=== PATIENT | male | born 1955 | race American Indian/Alaskan Native ===

== ENCOUNTER 2017-10-02 18:23 | Inpatient (IN) | payer MEDICAID ==
--- NOTE | 2017-10-02 19:38 | C.PDOC ---
History Of Present Illness 62 year old male is brought to the ED by his family for evaluation of B/L eye purulent discharge. Patient states he has been having B/L purulent ocular discharge for approximately a week. Patient states he has not been eating or drinking much during this time. Patient denies fever, chills, nausea, vomit, visual changes, headache, dizziness. Time Seen by Provider: 10/02/17 19:08 Chief Complaint (Nursing): Eye Problem History Per: Patient, Family History/Exam Limitations: no limitations Onset/Duration Of Symptoms: Days Current Symptoms Are (Timing): Still Present Injury To Eye?: No Severity: Moderate Pain Scale Rating Of: 4 Quality: "Pain" Wears Contact Lens?: No Associated Symptoms: Discharge From Eye Recent travel outside of the [place]: No Additional History Per: Patient, Family Past Medical History Reviewed: Historical Data, Nursing Documentation, Vital Signs Vital Signs: Last Vital Signs Temp 97.8 F 10/02/17 18:29 Pulse 116 H 10/02/17 18:29 Resp 20 10/02/17 18:29 BP 121/65 10/02/17 18:29 Pulse Ox 100 10/02/17 20:08 - Medical History PMH: No Chronic Diseases Surgical History: No Surg Hx Family History: States: Unknown Family Hx - Social History Hx Tobacco Use: No Hx Alcohol Use: Yes Hx Substance Use: No - Immunization History Hx Influenza Vaccination: No Review Of Systems Constitutional: Negative for: Fever, Chills Eyes: Positive for: Conjunctivae Inflammation, Redness, Other (Eye discharge ) Cardiovascular: Negative for: Chest Pain, Palpitations Respiratory: Negative for: Cough, Shortness of Breath Gastrointestinal: Negative for: Nausea, Vomiting, Abdominal Pain Genitourinary: Negative for: Dysuria Musculoskeletal: Negative for: Back Pain Skin: Negative for: Rash Neurological: Negative for: Weakness, Numbness Psych: Negative for: Anxiety Physical Exam - Physical Exam Appears: Non-toxic, No Acute Distress Skin: Warm, Dry, Other (psoriatic skin lesions B/L on hands and knees) Head: Normacephalic Eye(s): bilateral: Other (erythematous conjuctiva, purulent ocular discharge, arcus senilis) Ear(s): Bilateral: Normal Oral Mucosa: Moist Neck: Trachea Midline, Supple Chest: Symmetrical Cardiovascular: Rhythm Regular, No Murmur Respiratory: No Decreased Breath Sounds, No Rales, No Rhonchi, No Wheezing Gastrointestinal/Abdominal: Soft, No Tenderness, No Guarding, No Rebound Back: No CVA Tenderness Extremity: No Tenderness, No Pedal Edema, No Swelling Extremity: Bilateral: Atraumatic Pulses: Left Dorsalis Pedis: Normal, Right Dorsalis Pedis: Normal Neurological/Psych: Oriented x3 Gait: Steady ED Course And Treatment - Laboratory Results Result Diagrams: 10/02/17 20:24 10/02/17 20:24 O2 Sat by Pulse Oximetry: 100 (On RA) Pulse Ox Interpretation: Normal Progress Note: Plan: -VBG. -Labs. -CXR. -IV fluids. -UA Disposition Discussed With Dr.: Shreyas Acosta Comment[facility] took [facility] care at 10:49PM Doctor Will See Patient In The: ED Counseled Patient/Family Regarding: Studies Performed, Diagnosis - Disposition Disposition: HOSPITALIZED Disposition Time: 19:37 Condition: FAIR Forms: [employer] (Mauritanian) - POA Present On Arrival: None - Clinical Impression Clinical Impression: Conjunctivitis, Severe anemia, Skin disease, fungal, Alcohol abuse - Scribe Statement The provider has reviewed the documentation as recorded by the Scribe Bishop Salinas All medical record entries made by the Scribe were at my direction and personally dictated by me. I have reviewed the chart and agree that the record accurately reflects my personal performance of the history, physical exam, medical decision making, and the department course for this patient. I have also personally directed, reviewed, and agree with the discharge instructions and disposition. Decision To Admit - Pt Status Changed To: Hospital Disposition Of: Inpatient - Admit Certification Admit to Inpatient:: After my assessment, the patient will require hospitalization for at least two midnights. This is because of the severity of symptoms shown, intensity of services needed, and/or the medical risk in this patient being treated as an outpatient. - InPatient: Physician Admission Certification: I certify that this patient requires 2 or more midnights of care for the following reason:: After my assessment, the patient will require hospitalization for at least two midnights. This is because of the severity of symptoms shown, intensity of services needed, and/or the medical risk in this patient being treated as an outpatient. - . Bed Request Type: Regular Admitting Physician: Shreyas Acosta Patient Diagnosis: Conjunctivitis, Severe anemia, Skin disease, fungal, Alcohol abuse
[2017-10-02] MEDS ORDERED: Sodium Chloride 0.9% 1,000 ML IV ONE (19:44)
[2017-10-02 20:26] LABS: EOS # 0.1 K/uL (0.0-0.7); EOS % 0.6 % (0.0-4.0); HEMOGLOBIN 7.1 g/dL (12.0-18.0); MEAN CORPUSCULAR HEMOGLOBIN 30.8 pg (27.0-31.0); MEAN CORPUSCULAR HGB CONC 34.9 g/dL (33.0-37.0); MEAN PLATELET VOLUME 6.3 fL (7.2-11.7); MONO # 0.9 K/uL (0.0-0.8); NRBC % 0.1 % (0.0-2.0)
[2017-10-02 20:30] LABS: BASO # 0.1 K/uL (0.0-0.2); BASO % 0.5 % (0.0-2.0); LYMPH # 0.5 K/uL (1.0-4.3); LYMPH % 4.2 % (20.0-40.0); MEAN CELL VOLUME 88.2 fL (80.0-94.0); MONO % 7.6 % (0.0-10.0); NEUT # 10.7 K/uL (1.8-7.0); NEUT % 87.1 % (50.0-75.0); PLATELET COUNT 399 K/uL (130-400); RED CELL DISTRIBUTION WIDTH 14.5 % (11.5-14.5); WHITE BLOOD COUNT 12.3 K/uL (4.8-10.8)
[2017-10-02 20:35] LABS: VENOUS BLOOD GAS BASE EXCESS 1.5 mmol/L (0.0-2.0); VENOUS BLOOD GAS PCO2 39 mmHg (40-60); VENOUS BLOOD GAS PO2 55 mm/Hg (30-55); VENOUS BLOOD PH 7.43 (7.32-7.43)
[2017-10-02 20:35] LABS: INR 1.3; PROTHROMBIN TIME 14.1 SECONDS (9.7-12.2)
[2017-10-02 20:43] LABS: ALBUMIN 3.4 g/dL (3.5-5.0); CALCIUM 7.7 mg/dl (8.6-10.4); GFR AFRICAN-AMERICAN > 60; GFR NON-AFRICAN AMERICAN > 60
[2017-10-02 20:50] LABS: ALT/SGPT 24 U/L (21-72); AST/SGOT 76 U/L (17-59); BLOOD UREA NITROGEN 19 mg/dL (9-20)
[2017-10-02] MEDS ORDERED: Sulfacetamide Sodium 10% Ophth Soln OU STA (20:53)
[2017-10-02 21:14] LABS: BANDS 1 % (0-2); BASOPHIL 1 % (0-2); LYMPHOCYTE 3 % (20-40); MONOCYTE 5 % (0-10); NEUTROPHIL 90 % (50-75); PLATELET ESTIMATE SLIGHTLY INCREASED (NORMAL); TOTAL CELLS COUNTED 100
--- NOTE | 2017-10-02 23:15 | CP.PCM.HP ---
History of Present Illness - History of Present Illness History of Present Illness: 62 year old male with a past medical history of alcohol abuse who comes in complaining of bilateral eye discharge for the past one week. The patient reports that when he awakes the discharge from the eye is the most severe. The patient denies any recent contacts with anyone. Of note, the patient is currently homeless. The patient denies any chest pain, shortness of breath, fevers, chills, nausea, vomiting, changes in vision, syncopal episodes sick contacts, abdominal pain, or any other complaints. PMD: Denies Past medical history: Alcohol abuse Surgical history: Denies Family History: Denies Allergies: Denies Social history: Drinks 3 pints of Vodka a day for the past 10 years. Last drink was Wednesday. Denies tobacco or illicit drug use. Homeless Full code. Present on Admission - Present on Admission Any Indicators Present on Admission: No Review of Systems - Constitutional Constitutional: absent: Daytime Sleepiness, Headache - EENT Eyes: Blurred Vision, Discharge. absent: Change in Vision, Loss of Peripheral Vision, Sees Flashes, Loss of Vision Ears: absent: Ear Discharge, Dizziness Nose/Mouth/Throat: absent: Nasal Congestion, Nose Pain, Bleeding Gums, Dry Mouth , Dysphagia, Hoarsness - Cardiovascular Cardiovascular: absent: Chest Pain, Claudication, Irregular Heart Rhythm, Leg Edema, Palpitations - Respiratory Respiratory: absent: Dyspnea, Hemoptysis, Wheezing, Stridor, Excessive Mucous Production, Change in Mucous Color - Gastrointestinal Gastrointestinal: absent: Abdominal Pain, Belching, Heartburn, Loose Stools, Nausea, Vomiting - Genitourinary Genitourinary: absent: Change in Urinary Stream, Difficulty Urinating, Nocturia - Musculoskeletal Musculoskeletal: absent: Arthralgias, Limited Range of Motion, Loss of Height, Muscle Weakness, Neck Pain - Integumentary Integumentary: absent: Alopecia, Changing Lesions, New Lesions, Striae, Swelling - Neurological Neurological: absent: Abnormal Hearing, Behavioral Changes, Dizziness, Headaches , Syncope, Tremor, Vertigo, Weakness - Psychiatric Psychiatric: absent: Abnormal Sleep Pattern, Anxiety, Hopelessness - Endocrine Endocrine: absent: Polydipsia, Polyphagia, Polyuria - Hematologic/Lymphatic Hematologic: absent: Easy Bleeding, Easy Bruising Past Patient History - Past Social History Smoking Status: Never Smoked - PSYCHIATRIC Hx Substance Use: No Meds Allergies/Adverse Reactions: Allergies Allergy/AdvReac Type Severity Reaction Status Date / Time No Known Allergies Allergy Verified 10/02/17 18:32 Physical Exam - Head Exam Head Exam: ATRAUMATIC, NORMAL INSPECTION, NORMOCEPHALIC - Eye Exam Eye Exam: Conjunctival injection, EOMI, Normal appearance, PERRL. absent: Periorbital tenderness Pupil Exam: NORMAL ACCOMODATION, PERRL. absent: Irregular, Unequal Additional comments: Prulent discharge bilateral - ENT Exam ENT Exam: Mucous Membranes Moist, Normal Oropharynx - Neck Exam Neck exam: Negative for: Lymphadenopathy, Thyromegaly - Respiratory Exam Respiratory Exam: Clear to Auscultation Bilateral, NORMAL BREATHING PATTERN. absent: Chest Wall Tenderness, Prolonged Expiratory Phase, Respiratory Distress - Cardiovascular Exam Cardiovascular Exam: REGULAR RHYTHM, +S1, +S2 - GI/Abdominal Exam GI & Abdominal Exam: Normal Bowel Sounds, Soft. absent: Hypoactive Bowel Sounds , Organomegaly - Extremities Exam Extremities exam: Positive for: normal inspection. Negative for: full ROM, pedal edema - Back Exam Back exam: NORMAL INSPECTION. absent: CVA tenderness (L), CVA tenderness (R), paraspinal tenderness - Neurological Exam Neurological exam: Alert, CN II-XII Intact, Oriented x3 - Psychiatric Exam Psychiatric exam: Normal Affect, Normal Mood - Skin Skin Exam: Normal Color, Warm Results - Vital Signs Recent Vital Signs: Last Vital Signs Temp 97.8 F 10/02/17 18:29 Pulse 116 H 10/02/17 18:29 Resp 20 10/02/17 18:29 BP 121/65 10/02/17 18:29 Pulse Ox 100 10/02/17 22:52 - Labs Result Diagrams: 10/02/17 20:24 10/02/17 20:24 Labs: Laboratory Results - last 24 hr 10/02/17 10/02/17 10/02/17 20:24 20:24 20:24 WBC 12.3 H D RBC 2.30 L Hgb 7.1 L D Hct 20.3 L MCV 88.2 D MCH 30.8 MCHC 34.9 RDW 14.5 Plt Count 399 D MPV 6.3 L Neut % (Auto) 87.1 H Lymph % (Auto) 4.2 L [place] % (Auto) 7.6 Eos % (Auto) 0.6 Baso % (Auto) 0.5 Neut # (Auto) 10.7 H Lymph # (Auto) 0.5 L [place] # (Auto) 0.9 H Eos # (Auto) 0.1 Baso # (Auto) 0.1 Neutrophils % (Manual) 90 H Band Neutrophils % 1 Lymphocytes % (Manual) 3 L Monocytes % (Manual) 5 Basophils % (Manual) 1 Platelet Estimate Slightly increased H PT 14.1 H INR 1.3 APTT 25 pO2 VBG pH VBG pCO2 VBG HCO3 VBG Total CO2 VBG O2 Sat (Calc) VBG Base Excess VBG Potassium Glucose Lactate Sodium 131 L Potassium 3.8 Chloride 92 L Carbon Dioxide 24 Anion Gap 19 BUN 19 Creatinine 0.8 Est GFR ( Amer) > 60 Est GFR (Non-Af Amer) > 60 Random Glucose 94 Calcium 7.7 L Total Bilirubin 0.8 AST 76 H ALT 24 Alkaline Phosphatase 61 Total Protein 6.8 Albumin 3.4 L Globulin 3.4 Albumin/Globulin Ratio 1.0 Venous Blood Potassium Alcohol, Quantitative 178 H 10/02/17 20:32 WBC RBC Hgb Hct MCV MCH MCHC RDW Plt Count MPV Neut % (Auto) Lymph % (Auto) [place] % (Auto) Eos % (Auto) Baso % (Auto) Neut # (Auto) Lymph # (Auto) [place] # (Auto) Eos # (Auto) Baso # (Auto) Neutrophils % (Manual) Band Neutrophils % Lymphocytes % (Manual) Monocytes % (Manual) Basophils % (Manual) Platelet Estimate PT INR APTT pO2 55 VBG pH 7.43 VBG pCO2 39 L VBG HCO3 25.9 VBG Total CO2 27.1 VBG O2 Sat (Calc) 92.4 H VBG Base Excess 1.5 VBG Potassium 3.3 L Glucose 95 Lactate 2.4 H Sodium 133.0 Potassium Chloride 101.0 Carbon Dioxide Anion Gap BUN Creatinine Est GFR ( Amer) Est GFR (Non-Af Amer) Random Glucose Calcium Total Bilirubin AST ALT Alkaline Phosphatase Total Protein Albumin Globulin Albumin/Globulin Ratio Venous Blood Potassium 3.3 L Alcohol, Quantitative Assessment & Plan - Assessment and Plan (Free Text) Assessment: 62 year old male with a past medical history of alcohol abuse being admitted for conjunctivitis and anemia. Plan: 1. Macrocytic anemia (likely 2/2 to EToh abuse) -Upon admission Hemoglobinc 7.1 -Patient reports sporadic dark red bowel movements that have occurred over the past couple of months. -Patient refused bedside Rectal exam. -Transfuse 1 Units of PRBC. -Repeat CBC in the A.M. -Anemia profile. Will f/u with results. -GI consult. Will f/u with results. 2. Etoh abuse. -Patient drinks 3 pints of Vodka daily. -Last drink was Wednesday. -Ativan taper. -CIWA protocol. -Banana bag. -Seizure protocol. PPX -Protonix 40mg IVP Daily -Heparin 5000 Units q12.
[2017-10-03 01:18] LABS: BASO % 0.4 % (0.0-2.0); EOS # 0.6 K/uL (0.0-0.7); HEMOGLOBIN 6.8 g/dL (12.0-18.0); LYMPH # 0.7 K/uL (1.0-4.3); LYMPH % 7.8 % (20.0-40.0); MEAN CORPUSCULAR HEMOGLOBIN 31.2 pg (27.0-31.0); MEAN CORPUSCULAR HGB CONC 35.5 g/dL (33.0-37.0); MEAN PLATELET VOLUME 6.3 fL (7.2-11.7); MONO # 0.8 K/uL (0.0-0.8); NEUT # 7.2 K/uL (1.8-7.0); NEUT % 76.8 % (50.0-75.0); NRBC % 0.1 % (0.0-2.0); PLATELET COUNT 358 K/uL (130-400); RBC 2.17 Mil/uL (4.40-5.90); RED CELL DISTRIBUTION WIDTH 14.4 % (11.5-14.5); WHITE BLOOD COUNT 9.4 K/uL (4.8-10.8)
[2017-10-03 02:02] LABS: FERRITIN 34.5 ng/mL
[2017-10-03 02:32] LABS: FOLATE 8.1 ng/mL
[2017-10-03 02:46] LABS: EOSINOPHIL 6 % (0-4); LYMPHOCYTE 11 % (20-40); MONOCYTE 8 % (0-10); NEUTROPHIL 75 % (50-75); PLATELET ESTIMATE NORMAL (NORMAL); TOTAL CELLS COUNTED 100
--- NOTE | 2017-10-03 02:47 | US ---
EXAM: US Abdomen Complete CLINICAL HISTORY: 62 years old, male; Signs and symptoms; Other: Possible gi bleed TECHNIQUE: Real-time ultrasound of the abdomen (complete) with image documentation. COMPARISON: No relevant prior studies available. FINDINGS: Limitations: Body habitus. Liver: Fatty infiltration. Gallbladder: No gallstones. No wall thickening. No pericholecystic fluid. No sonographic Jacob's sign. Common bile duct: No dilatation. No stones. Pancreas: Unremarkable as visualized. Kidneys: Slightly increased in echogenicity. No hydronephrosis. Spleen: No splenomegaly. Aorta: Unremarkable as visualized. Inferior vena cava: Unremarkable. IMPRESSION: 1. Mildly echogenic kidneys, possibly representing medical renal disease. 2. Incidental/non-acute findings are described above.
[2017-10-03] MEDS: Clotrimazole 1% Cream(30 gm) TOP SCH ×2 (03:12→10:12)
[2017-10-03 04:01] LABS: URINE BACTERIA RARE (<OCC); URINE BILIRUBIN NEGATIVE (NEGATIVE); URINE BLOOD NEGATIVE (NEGATIVE); URINE CLARITY Clear (Clear); URINE COLOR Yellow (YELLOW); URINE GLUCOSE (UA) NORMAL (Normal); URINE LEUKOCYTE ESTERASE NEG Leu/uL (Negative); URINE NITRATE NEGATIVE (NEGATIVE); URINE PROTEIN NEGATIVE (NEGATIVE)
[2017-10-03 04:15] LABS: BARBITURATES, UR NEGATIVE (NEGATIVE); BENZODIAZEPINES, UR NEGATIVE (NEGATIVE); OPIATES, UR NEGATIVE (NEGATIVE); PHENCYCLIDINE, UR NEGATIVE (NEGATIVE)
[2017-10-03 04:45] LABS: BASO % 0.3 % (0.0-2.0); EOS # 0.7 K/uL (0.0-0.7); EOS % 7.2 % (0.0-4.0); HEMOGLOBIN 6.7 g/dL (12.0-18.0); LYMPH # 0.6 K/uL (1.0-4.3); MEAN CELL VOLUME 87.7 fL (80.0-94.0); MEAN CORPUSCULAR HEMOGLOBIN 31.5 pg (27.0-31.0); MEAN CORPUSCULAR HGB CONC 35.9 g/dL (33.0-37.0); MEAN PLATELET VOLUME 6.2 fL (7.2-11.7); MONO # 0.9 K/uL (0.0-0.8); MONO % 9.1 % (0.0-10.0); NEUT # 7.3 K/uL (1.8-7.0); NEUT % 77.4 % (50.0-75.0); RBC 2.12 Mil/uL (4.40-5.90); RED CELL DISTRIBUTION WIDTH 14.5 % (11.5-14.5); WHITE BLOOD COUNT 9.4 K/uL (4.8-10.8)
[2017-10-03 05:13] LABS: IRON 13 ug/dL (49-181)
[2017-10-03 05:22] LABS: % IRON SATURATION 5 (20-55); TOTAL IRON BINDING CAPACITY 253 ug/dL (250-450)
--- NOTE | 2017-10-03 08:49 | RAD ---
HISTORY: SOB COMPARISON: Chest x-ray performed 09/03/14 TECHNIQUE: Chest, one view. FINDINGS: LUNGS: No focal consolidation. Please note that chest x-ray has limited sensitivity for the detection of pulmonary masses. PLEURA: No significant pleural effusion identified. No definite pneumothorax . CARDIOVASCULAR: Ectatic aorta. Heart size appears top normal. OSSEOUS STRUCTURES: No acute osseous abnormality identified. VISUALIZED UPPER ABDOMEN: Unremarkable. OTHER FINDINGS: None. IMPRESSION: Ectatic aorta. No focal consolidation.
--- NOTE | 2017-10-03 12:27 | CP.PCM.PN ---
Subjective - Date & Time of Evaluation Date of Evaluation: 10/03/17 Time of Evaluation: 12:15 - Subjective Subjective: H&P dictated #[id number] Objective - Vital Signs/Intake and Output Vital Signs (last 24 hours): Temp Pulse Resp BP Pulse Ox 98.9 F 100 H 18 120/74 97 10/03/17 06:56 10/03/17 06:56 10/03/17 06:56 10/03/17 06:56 10/03/17 06:56 - Medications Medications: Current Medications Clotrimazole (Lotrimin 1%) 0 gm TOP BID LOPEZ Last Admin: 10/03/17 10:12 Dose: 1 % Dextrose/Sodium Chloride (Dextrose 5%/0.9% Ns 1000 Ml) 1,000 mls @ 75 mls/hr IV CONT LOPEZ Folic Acid 1 mg/ Thiamine HCl 100 mg/ Multivitamins/Vitamin C 10 ml/ Dextrose 1 ,011.2 mls @ 100 mls/hr IV .[id number] LOPEZ Lorazepam (Ativan) 0.5 mg IVP Q4H PRN PRN Reason: Symptoms of alcohol withdrawl Last Admin: 10/03/17 00:52 Dose: 0.5 mg - Labs Labs: 10/03/17 01:06 10/02/17 20:24 PT 14.1 SECONDS (9.7-12.2) H 10/02/17 20:24 INR 1.3 10/02/17 20:24 APTT 25 SECONDS (21-34) 10/02/17 20:24
[2017-10-03] MEDS ORDERED: Folic Acid 1 MG, Thiamine 100 MG, Multivitamin (MVI) 10 ML in Dextrose 5% In Water 1,00... IV SCH (12:30)
--- NOTE | 2017-10-03 17:45 | CP.PCM.CON ---
History of Present Illness - History of Present Illness History of Present Illness: 62 year old homeless male with a history of alcoholism, admitted for eye discharge and sensation of bugs crawling on his skin, found to be anemic. The patient denies abnormal bleeding and bruising. He continues to drink alcohol daily. His hgb parish in the ER was ntoed to be 6.7. He is due for PRBC transfusion and has been started on IV iron and B12 IM. Past medical history: Alcoholism Past surgical history: Knee surgery Family history: Mother had colon cancer Social history: Denies tobacco, drink vodka daily, denies illicit drug use. Allergies: NKA Review of systems: All remaining review of systems including HEENT, cardiovascular, respiratory, gastrointestinal, genitourinary, musculoskeletal, dermatologic, neurologic, and psychiatric are negative unless mentioned in the HPI. Past Patient History - Past Social History Smoking Status: Never Smoked - PSYCHIATRIC Hx Substance Use: No Meds Allergies/Adverse Reactions: Allergies Allergy/AdvReac Type Severity Reaction Status Date / Time No Known Allergies Allergy Verified 10/02/17 18:32 - Medications Medications: Current Medications Chlordiazepoxide (Librium) 0 mg PO Q6 [facility] PRN Reason: Taper Stop: 10/07/17 17:59 Ciprofloxacin (Ciloxan 0.3% Ophth Soln) 1 drop OU Q8H [facility] Clotrimazole (Lotrimin 1%) 0 gm TOP BID [facility] Last Admin: 10/03/17 10:12 Dose: 1 % Cyanocobalamin (Vitamin B12 1000 Mcg/Ml Inj) 1,000 mcg IM DAILY [facility] Stop: 10/07/17 10:01 Last Admin: 10/03/17 15:48 Dose: 1,000 mcg Ferric Sodium Gluconate Complex (Ferrlecit) 125 mg IVPB DAILY [facility] Stop: 10/12/17 10:01 Folic Acid (Folic Acid) 1 mg PO DAILY [facility] Dextrose/Sodium Chloride (Dextrose 5%/0.9% Ns 1000 Ml) 1,000 mls @ 75 mls/hr IV CONT [facility] Folic Acid 1 mg/ Thiamine HCl 100 mg/ Multivitamins/Vitamin C 10 ml/ Dextrose 1 ,011.2 mls @ 100 mls/hr IV DAILY [facility] Stop: 10/03/17 22:37 Last Admin: 10/03/17 14:50 Dose: 100 mls/hr Lorazepam (Ativan) 0.5 mg IVP Q4H PRN PRN Reason: Symptoms of alcohol withdrawl Last Admin: 10/03/17 11:30 Dose: 0.5 mg Multivitamins (Hexavitamin) 1 tab PO DAILY [facility] Pantoprazole Sodium (Protonix Inj) 40 mg IVP Q12H [facility] Thiamine HCl (Vitamin B1 Tab) 100 mg PO DAILY [facility] Physical Exam - Head Exam Head Exam: ATRAUMATIC - Eye Exam Eye Exam: Normal appearance - ENT Exam ENT Exam: Mucous Membranes Dry - Respiratory Exam Respiratory Exam: NORMAL BREATHING PATTERN - Cardiovascular Exam Cardiovascular Exam: +S1, +S2 - GI/Abdominal Exam GI & Abdominal Exam: Normal Bowel Sounds - Neurological Exam Neurological exam: Oriented x3 - Psychiatric Exam Psychiatric exam: Normal Affect, Normal Mood - Skin Skin Exam: Warm Results - Vital Signs Recent Vital Signs: Last Vital Signs Temp 99.9 F H 10/03/17 15:38 Pulse 108 H 10/03/17 15:38 Resp 18 10/03/17 15:38 BP 127/75 10/03/17 15:38 Pulse Ox 100 10/03/17 15:38 - Labs Result Diagrams: 10/03/17 01:06 10/02/17 20:24 Labs: Laboratory Results - last 24 hr 10/02/17 10/02/17 10/02/17 20:24 20:24 20:24 WBC 12.3 H D RBC 2.30 L Hgb 7.1 L D Hct 20.3 L MCV 88.2 D MCH 30.8 MCHC 34.9 RDW 14.5 Plt Count 399 D MPV 6.3 L Neut % (Auto) 87.1 H Lymph % (Auto) 4.2 L Grant % (Auto) 7.6 Eos % (Auto) 0.6 Baso % (Auto) 0.5 Neut # (Auto) 10.7 H Lymph # (Auto) 0.5 L Grant # (Auto) 0.9 H Eos # (Auto) 0.1 Baso # (Auto) 0.1 Neutrophils % (Manual) 90 H Band Neutrophils % 1 Lymphocytes % (Manual) 3 L Monocytes % (Manual) 5 Eosinophils % (Manual) Basophils % (Manual) 1 Platelet Estimate Slightly increased H Retic Count PT 14.1 H INR 1.3 APTT 25 pO2 VBG pH VBG pCO2 VBG HCO3 VBG Total CO2 VBG O2 Sat (Calc) VBG Base Excess VBG Potassium Glucose Lactate Sodium 131 L Potassium 3.8 Chloride 92 L Carbon Dioxide 24 Anion Gap 19 BUN 19 Creatinine 0.8 Est GFR ( Amer) > 60 Est GFR (Non-Af Amer) > 60 POC Glucose (mg/dL) Random Glucose 94 Calcium 7.7 L Iron TIBC % Saturation Ferritin Total Bilirubin 0.8 AST 76 H ALT 24 Alkaline Phosphatase 61 Total Protein 6.8 Albumin 3.4 L Globulin 3.4 Albumin/Globulin Ratio 1.0 Vitamin B12 Folate Venous Blood Potassium Urine Color Urine Clarity Urine pH Ur Specific Leo Urine Protein Urine Glucose (UA) Urine Ketones Urine Blood Urine Nitrate Urine Bilirubin Urine Urobilinogen Ur Leukocyte Esterase Urine WBC (Auto) Urine RBC (Auto) Urine Bacteria Urine Opiates Screen Urine Methadone Screen Ur Barbiturates Screen Ur Phencyclidine Scrn Ur Amphetamines Screen U Benzodiazepines Scrn U Oth Cocaine Metabols U Cannabinoids Screen Alcohol, Quantitative 178 H Blood Type Antibody Screen 10/02/17 10/03/17 10/03/17 20:32 00:45 01:06 WBC 9.4 RBC 2.12 L Hgb 6.7 L Hct 18.6 L MCV 87.7 MCH 31.5 H MCHC 35.9 RDW 14.5 Plt Count 376 MPV 6.2 L Neut % (Auto) 77.4 H Lymph % (Auto) 6.0 L Grant % (Auto) 9.1 Eos % (Auto) 7.2 H Baso % (Auto) 0.3 Neut # (Auto) 7.3 H Lymph # (Auto) 0.6 L Grant # (Auto) 0.9 H Eos # (Auto) 0.7 Baso # (Auto) 0.0 Neutrophils % (Manual) Band Neutrophils % Lymphocytes % (Manual) Monocytes % (Manual) Eosinophils % (Manual) Basophils % (Manual) Platelet Estimate Retic Count PT INR APTT pO2 55 VBG pH 7.43 VBG pCO2 39 L VBG HCO3 25.9 VBG Total CO2 27.1 VBG O2 Sat (Calc) 92.4 H VBG Base Excess 1.5 VBG Potassium 3.3 L Glucose 95 Lactate 2.4 H Sodium 133.0 Potassium Chloride 101.0 Carbon Dioxide Anion Gap BUN Creatinine Est GFR ( Amer) Est GFR (Non-Af Amer) POC Glucose (mg/dL) 87 Random Glucose Calcium Iron TIBC % Saturation Ferritin Total Bilirubin AST ALT Alkaline Phosphatase Total Protein Albumin Globulin Albumin/Globulin Ratio Vitamin B12 Folate Venous Blood Potassium 3.3 L Urine Color Urine Clarity Urine pH Ur Specific Leo Urine Protein Urine Glucose (UA) Urine Ketones Urine Blood Urine Nitrate Urine Bilirubin Urine Urobilinogen Ur Leukocyte Esterase Urine WBC (Auto) Urine RBC (Auto) Urine Bacteria Urine Opiates Screen Urine Methadone Screen Ur Barbiturates Screen Ur Phencyclidine Scrn Ur Amphetamines Screen U Benzodiazepines Scrn U Oth Cocaine Metabols U Cannabinoids Screen Alcohol, Quantitative Blood Type Antibody Screen 10/03/17 10/03/17 10/03/17 01:06 01:06 01:06 WBC 9.4 RBC 2.17 L Hgb 6.8 L Hct 19.1 L MCV 88.0 MCH 31.2 H MCHC 35.5 RDW 14.4 Plt Count 358 MPV 6.3 L Neut % (Auto) 76.8 H Lymph % (Auto) 7.8 L Grant % (Auto) 9.0 Eos % (Auto) 6.0 H Baso % (Auto) 0.4 Neut # (Auto) 7.2 H Lymph # (Auto) 0.7 L Grant # (Auto) 0.8 Eos # (Auto) 0.6 Baso # (Auto) 0.0 Neutrophils % (Manual) 75 Band Neutrophils % Lymphocytes % (Manual) 11 L Monocytes % (Manual) 8 Eosinophils % (Manual) 6 H Basophils % (Manual) Platelet Estimate Normal Retic Count PT INR APTT pO2 VBG pH VBG pCO2 VBG HCO3 VBG Total CO2 VBG O2 Sat (Calc) VBG Base Excess VBG Potassium Glucose Lactate Sodium Potassium Chloride Carbon Dioxide Anion Gap BUN Creatinine Est GFR ( Amer) Est GFR (Non-Af Amer) POC Glucose (mg/dL) Random Glucose Calcium Iron TIBC % Saturation Ferritin 34.5 Total Bilirubin AST ALT Alkaline Phosphatase Total Protein Albumin Globulin Albumin/Globulin Ratio Vitamin B12 260 Folate 8.1 Venous Blood Potassium Urine Color Urine Clarity Urine pH Ur Specific Leo Urine Protein Urine Glucose (UA) Urine Ketones Urine Blood Urine Nitrate Urine Bilirubin Urine Urobilinogen Ur Leukocyte Esterase Urine WBC (Auto) Urine RBC (Auto) Urine Bacteria Urine Opiates Screen Urine Methadone Screen Ur Barbiturates Screen Ur Phencyclidine Scrn Ur Amphetamines Screen U Benzodiazepines Scrn U Oth Cocaine Metabols U Cannabinoids Screen Alcohol, Quantitative Blood Type O POSITIVE Antibody Screen Negative 10/03/17 10/03/17 10/03/17 01:33 03:55 03:55 WBC RBC Hgb Hct MCV MCH MCHC RDW Plt Count MPV Neut % (Auto) Lymph % (Auto) Grant % (Auto) Eos % (Auto) Baso % (Auto) Neut # (Auto) Lymph # (Auto) Grant # (Auto) Eos # (Auto) Baso # (Auto) Neutrophils % (Manual) Band Neutrophils % Lymphocytes % (Manual) Monocytes % (Manual) Eosinophils % (Manual) Basophils % (Manual) Platelet Estimate Retic Count 3.8 H PT INR APTT pO2 VBG pH VBG pCO2 VBG HCO3 VBG Total CO2 VBG O2 Sat (Calc) VBG Base Excess VBG Potassium Glucose Lactate Sodium Potassium Chloride Carbon Dioxide Anion Gap BUN Creatinine Est GFR ( Amer) Est GFR (Non-Af Amer) POC Glucose (mg/dL) Random Glucose Calcium Iron TIBC % Saturation Ferritin Total Bilirubin AST ALT Alkaline Phosphatase Total Protein Albumin Globulin Albumin/Globulin Ratio Vitamin B12 Folate Venous Blood Potassium Urine Color Yellow Urine Clarity Clear Urine pH 6.0 Ur Specific Leo 1.015 Urine Protein Negative Urine Glucose (UA) Normal Urine Ketones Trace Urine Blood Negative Urine Nitrate Negative Urine Bilirubin Negative Urine Urobilinogen 4.0 Ur Leukocyte Esterase Neg Urine WBC (Auto) 1 Urine RBC (Auto) < 1 Urine Bacteria Rare Urine Opiates Screen Negative Urine Methadone Screen Negative Ur Barbiturates Screen Negative Ur Phencyclidine Scrn Negative Ur Amphetamines Screen Negative U Benzodiazepines Scrn Negative U Oth Cocaine Metabols Negative U Cannabinoids Screen Negative Alcohol, Quantitative Blood Type Antibody Screen 10/03/17 04:59 WBC RBC Hgb Hct MCV MCH MCHC RDW Plt Count MPV Neut % (Auto) Lymph % (Auto) Grant % (Auto) Eos % (Auto) Baso % (Auto) Neut # (Auto) Lymph # (Auto) Grant # (Auto) Eos # (Auto) Baso # (Auto) Neutrophils % (Manual) Band Neutrophils % Lymphocytes % (Manual) Monocytes % (Manual) Eosinophils % (Manual) Basophils % (Manual) Platelet Estimate Retic Count PT INR APTT pO2 VBG pH VBG pCO2 VBG HCO3 VBG Total CO2 VBG O2 Sat (Calc) VBG Base Excess VBG Potassium Glucose Lactate Sodium Potassium Chloride Carbon Dioxide Anion Gap BUN Creatinine Est GFR ( Amer) Est GFR (Non-Af Amer) POC Glucose (mg/dL) Random Glucose Calcium Iron 13 L TIBC 253 % Saturation 5 L Ferritin Total Bilirubin AST ALT Alkaline Phosphatase Total Protein Albumin Globulin Albumin/Globulin Ratio Vitamin B12 Folate Venous Blood Potassium Urine Color Urine Clarity Urine pH Ur Specific Leo Urine Protein Urine Glucose (UA) Urine Ketones Urine Blood Urine Nitrate Urine Bilirubin Urine Urobilinogen Ur Leukocyte Esterase Urine WBC (Auto) Urine RBC (Auto) Urine Bacteria Urine Opiates Screen Urine Methadone Screen Ur Barbiturates Screen Ur Phencyclidine Scrn Ur Amphetamines Screen U Benzodiazepines Scrn U Oth Cocaine Metabols U Cannabinoids Screen Alcohol, Quantitative Blood Type Antibody Screen Assessment & Plan (1) Anemia Assessment and Plan: iron and B12 deficiency; on supplementation GI w/u element of bone marrow suppression from ETOH transfusion support PRN Status: Acute (2) Leukocytosis Assessment and Plan: s/p antibiotics Status: Acute (3) Coagulopathy Assessment and Plan: likely nutritional Thank you for this interesting consult. Status: Acute
--- NOTE | 2017-10-04 03:37 | HP ---
CHIEF COMPLAINT: Bilateral purulent eye discharge for the past one week and decreased p.o. intake and generalized fatigue and weight loss. HISTORY OF PRESENT ILLNESS: Mr. Rodriguez is a 62-year-old male with no known past medical history other than drinking alcohol, 3 to 4 pints a day for the past few years. He is homeless, living in shelters, around the streets, but has family. He visited his sister's house at which time the sister noticed him to be having redness of the eyes and purulent discharge, was very weak, unable to ambulate, complaining of generalized body aches and dyspnea on exertion and noticed that bugs were crawling on him, and the patient was brought into the ED. In the emergency room, the patient was found to be having elevated alcohol levels and low H and H and patient is being admitted for further evaluation and management. When I examined the patient, the patient is more alert and awake and answering to questions appropriately. He denied any headache, dizziness. Denied any chest pain, but complaining of dyspnea on exertion. Denied any nausea, vomiting. Denied any black colored stools or any diarrhea or constipation, but admits to having intermittent blood in the stools over the past few months. He denies seeing any medical doctor in the past few months. Claims that he drinks 3 to 4 pints of alcohol every day. Denies any vomiting fresh blood, denies using any NSAIDs or any other pain medication. Denies any urinary complaints. Denies any leg pains or leg cramps. PAST MEDICAL HISTORY: Denies any past medical history. PAST SURGICAL HISTORY: Underwent left knee surgery. FAMILY HISTORY: Colorectal cancer in mother, she was diagnosed with cancer at age 50 and she at the age 54. Father from unknown causes. PERSONAL HISTORY: He is single, having one son, living on the street. SOCIAL HISTORY: Denies smoking, denies any drug abuse, drinks 3 to 4 pints of alcohol every day for past few years. ALLERGIES: NO KNOWN DRUG ALLERGIES. MEDICATIONS: None at home. REVIEW OF SYSTEMS: As described in the history of present illness. PHYSICAL EXAMINATION: GENERAL: Middle-aged male, lying in bed, in no acute distress. VITAL SIGNS: Blood pressure 127/75, pulse 108, respirations 18, temperature 99.9 degrees Fahrenheit, O2 saturations 97% on room air. HEENT: This is conjunctival erythema and purulent discharge from both eyes noted. No icterus. No oral thrush. Dry mucous membranes. Conjunctival pallor noted. NECK: Supple. No JVD. LUNGS: Bilaterally vesicular breath sounds. No wheezing, no rhonchi. CVS: S1 and S2 present. Tachycardic. ABDOMEN: Soft, nontender. Bowel sounds present. No guarding, no rigidity. No rebound tenderness noted. [employer] G[employer]: Alert, awake, oriented x3. No focal deficits noted. EXTREMITIES: Very unkempt, fungal infection of the toes and thickened skin in both the feet and ankles and multiple scratch naranjo all over the body with bugs crawling. LABORATORY DATA: Labs done from ED; WBC 12.3, hemoglobin 7.1, hematocrit 20.3, platelets 399. Repeat hemoglobin this morning 6.8, hematocrit 19.1, MCV is 88.2 with reticulocyte count of 3.8, INR is 1.3, PT 14.1, PTT 25, sodium 131, potassium 3.8, chloride 92, bicarb 24, BUN 19, creatinine 0.8, glucose 94, calcium 7.7, iron 13, TIBC 253, iron saturation 5%, ferritin 34.5, total bilirubin 0.8, AST 76, ALT 24, alkaline phosphatase 61, total protein 6.8, albumin 3.4, vitamin B12 260, UA negative. Alcohol 178. Chest x-ray, ectatic aorta, no focal consolidation. Ultrasound of the abdomen, mildly echogenic kidneys, possibly representing medical renal disease. ASSESSMENT: A middle-aged male with no significant past medical history other than ethyl alcohol abuse, admitted for; 1. Ethyl alcohol intoxication. 2. Severe symptomatic anemia, rule out secondary to gastrointestinal losses, rule out secondary to alcoholic liver disease. 3. Iron deficiency anemia. 4. Low B12 levels. 5. Bilateral conjunctivitis. PLAN: The patient is being admitted to telemetry, will transfuse 2 units of PRBC, will check serial CBCs. Give Protonix 40 mg IV daily. We will obtain GI and Hematology evaluation. Repeat CBC after transfusion, gave IV Ferrlecit and B12 supplementation 1000 mcg daily, start [facility] protocol tapering doses, give Ativan as needed, give IV fluids with banana bag at 100 mL an hour. Guaiac was done at bedside, the stool is normal colored without any fresh blood or black colored, awaiting for the results, it was sent to the lab though I discussed with GI fellow on-call. We will do CT scan of the abdomen and pelvis with contrast and monitor blood pressure closely. Watch for withdrawal, and DTs, watch for seizures. We will obtain Psych evaluation. Drug screen done was negative. Discussed with patient's sister who is at bedside, clarified all her questions and concerns. We will add further recommendations as his clinical course progresses. Daina Wooten MD
[2017-10-04] MEDS: Dextrose 5%/0.9% NS 1,000 ML IV SCH (08:58)
[2017-10-04] MEDS: Multiple Vitamins Tab PO SCH (09:50)
[2017-10-04] MEDS ORDERED: Ferric Sodium Gluconat Complex 62.5 mg/5 ml Vial IVPB SCH (10:00)
[2017-10-04] MEDS ORDERED: Ferric Sodium Gluconat Complex 125 MG in Sodium Chloride 0.9% 100 ML IVPB SCH (10:00)
--- NOTE | 2017-10-04 10:09 | CP.PCM.CON ---
<Sidney Hernandes - Last Filed: 10/04/17 10:21> History of Present Illness - History of Present Illness History of Present Illness: PGY5 GI Fellow Consult Note Patient is a 62yo male with PMHx significant for EtOH abuse and homelessness who presented to the ED with bilateral eye discharge. The patient states that this is ongoing for one week and was beginning to cause vision loss, thus he came to the ED for evaluation. Moreover, he admits to diffuse pruritus 2/2 "bugs " that have been on his skin for more than one week and has since diagnosed with body lice. The patient admits to daily EtOH use with 2-3 pints of vodka daily, last drink being 10/02/17 and EtOH level was 178 on admission. The patient denies any history of chronic liver disease as a result of his alcoholism but does note that he has not been connected to the healthcare system for some time. Since arrival, he has been treated with antibiotic and antifungal medications. On arrival, ED labs revealed a normocytic anemia of 7.1 , now 6.8 on today's labs. U/S abdomen revealed fatty liver. Patient denies any hematochezia, melena, hematemesis, nausea, vomiting, fever, chills. PMHx: Denies other medical history PSHx: Left leg fracture ORIF - pins in place FHx: Mother - colon cancer at age 52 Social: +EtOH 2-3 pints vodka daily, denies tobacco or illicit drug use Endo: Denies prior endoscopic evaluation 12 system ROS performed and negative except where stated. Past Patient History - Past Social History Smoking Status: Never Smoked - PSYCHIATRIC Hx Substance Use: No Meds Allergies/Adverse Reactions: Allergies Allergy/AdvReac Type Severity Reaction Status Date / Time No Known Allergies Allergy Verified 10/02/17 18:32 - Medications Medications: Current Medications Chlordiazepoxide (Librium) 25 mg PO Q6 [facility] PRN Reason: Taper Stop: 10/07/17 17:59 Last Admin: 10/04/17 07:54 Dose: 25 mg Ciprofloxacin (Ciloxan 0.3% Ophth Soln) 1 drop OU Q8H [facility] Clotrimazole (Lotrimin 1%) 0 gm TOP BID [facility] Last Admin: 10/03/17 10:12 Dose: 1 % Cyanocobalamin (Vitamin B12 1000 Mcg/Ml Inj) 1,000 mcg IM DAILY [facility] Stop: 10/07/17 10:01 Last Admin: 10/03/17 15:48 Dose: 1,000 mcg Ferric Sodium Gluconate Complex (Ferrlecit) 125 mg IVPB DAILY [facility] Stop: 10/12/17 10:01 Folic Acid (Folic Acid) 1 mg PO DAILY [facility] Last Admin: 10/04/17 09:49 Dose: Not Given Dextrose/Sodium Chloride (Dextrose 5%/0.9% Ns 1000 Ml) 1,000 mls @ 75 mls/hr IV CONT [facility] Last Admin: 10/04/17 08:58 Dose: 75 mls/hr Lorazepam (Ativan) 0.5 mg IVP Q4H PRN PRN Reason: Symptoms of alcohol withdrawl Last Admin: 10/03/17 11:30 Dose: 0.5 mg Multivitamins (Hexavitamin) 1 tab PO DAILY [facility] Last Admin: 10/04/17 09:50 Dose: Not Given Pantoprazole Sodium (Protonix Inj) 40 mg IVP Q12H [facility] Last Admin: 10/04/17 07:49 Dose: 40 mg Thiamine HCl (Vitamin B1 Tab) 100 mg PO DAILY [facility] Last Admin: 10/04/17 09:50 Dose: Not Given Physical Exam - Constitutional Appears: No Acute Distress, Unkempt - Eye Exam Additional comments: B/L purulent discharge from eyes, scleral injection - ENT Exam ENT Exam: Mucous Membranes Dry - Respiratory Exam Respiratory Exam: Clear to Auscultation Bilateral. absent: Rales, Rhonchi, Wheezes - Cardiovascular Exam Cardiovascular Exam: RRR, +S1, +S2 - GI/Abdominal Exam GI & Abdominal Exam: Normal Bowel Sounds, Soft. absent: Distended, Firm, Guarding, Organomegaly, Rigid, Tenderness - Rectal Exam Rectal Exam: Hemorrhoids (external). absent: Black Stool, Bloody Stool Additional comments: brown stool - Extremities Exam Extremities exam: Positive for: normal inspection. Negative for: pedal edema - Neurological Exam Neurological exam: Alert, Oriented x3 - Psychiatric Exam Psychiatric exam: Normal Affect, Normal Mood - Skin Skin Exam: Dry, Warm Additional comments: multiple open wounds on UE/LE/abdomen/back/buttocks Results - Vital Signs Recent Vital Signs: Last Vital Signs Temp 98.8 F 10/04/17 08:22 Pulse 104 H 10/04/17 08:22 Resp 16 10/04/17 08:22 BP 142/89 10/04/17 08:22 Pulse Ox 100 10/04/17 08:22 - Labs Result Diagrams: 10/03/17 01:06 10/02/17 20:24 Labs: Laboratory Results - last 24 hr 10/03/17 01:06 Blood Type O POSITIVE Antibody Screen Negative Assessment & Plan - Assessment and Plan (Free Text) Assessment: patient is a 62yo male with PMHx significant for EtOH abuse and homelessness who presented to the ED with bilateral eye discharge. -B/L conjunctivitis - likely bacterial -Body lice -EtOH abuse -Anemia -Homelessness Plan: -Given anemia, recommend EGD to evaluate for any ongoing blood loss, ulceration or occult lesions -NPO -S/P 2 units PRBCs this morning, awaiting repeat HGB -Given significant family history (mother colon cancer at age 52) and anemia - recommend colonoscopy when patient can safely prep for procedure -Patient will need aggressive management for B/L conjunctivitis and body lice - Date & Time Date: 10/04/17 Time: 07:25 <Mane Miguel MD - Last Filed: 10/04/17 16:12> Meds - Medications Medications: Current Medications Acetaminophen (Tylenol 325mg Tab) 650 mg PO Q6 PRN PRN Reason: Pain, Mild (1-3) Chlordiazepoxide (Librium) 25 mg PO Q6 [facility] PRN Reason: Taper Stop: 10/07/17 17:59 Last Admin: 10/04/17 12:29 Dose: 25 mg Ciprofloxacin (Ciloxan 0.3% Oph Soln) 1 drop OU Q8H [facility] Last Admin: 10/04/17 11:11 Dose: Not Given Clotrimazole (Lotrimin 1%) 0 gm TOP BID [facility] Last Admin: 10/04/17 10:58 Dose: 1 % Cyanocobalamin (Vitamin B12 1000 Mcg/Ml Inj) 1,000 mcg IM DAILY [facility] Stop: 10/07/17 10:01 Last Admin: 10/04/17 10:58 Dose: 1,000 mcg Folic Acid (Folic Acid) 1 mg PO DAILY [facility] Last Admin: 10/04/17 09:49 Dose: Not Given Dextrose/Sodium Chloride (Dextrose 5%/0.9% Ns 1000 Ml) 1,000 mls @ 75 mls/hr IV CONT [facility] Last Admin: 10/04/17 08:58 Dose: 75 mls/hr Lorazepam (Ativan) 0.5 mg IVP Q4H PRN PRN Reason: Symptoms of alcohol withdrawl Last Admin: 10/03/17 11:30 Dose: 0.5 mg Multivitamins (Hexavitamin) 1 tab PO DAILY [facility] Last Admin: 10/04/17 09:50 Dose: Not Given Pantoprazole Sodium (Protonix Inj) 40 mg IVP Q12H [facility] Last Admin: 10/04/17 07:49 Dose: 40 mg Pneumococcal Polyvalent Vaccine (Pneumovax 23 Vaccine) 0.5 ml IM .ONCE ONE Stop: 10/05/17 10:01 Thiamine HCl (Vitamin B1 Tab) 100 mg PO DAILY [facility] Last Admin: 10/04/17 09:50 Dose: Not Given Results - Vital Signs Recent Vital Signs: Last Vital Signs Temp 98.8 F 10/04/17 08:22 Pulse 107 H 10/04/17 12:30 Resp 20 10/04/17 12:30 BP 144/80 10/04/17 12:30 Pulse Ox 96 10/04/17 12:30 - Labs Result Diagrams: 10/04/17 11:54 10/04/17 09:57 Labs: Laboratory Results - last 24 hr 10/03/17 10/04/17 10/04/17 01:06 09:57 11:38 WBC RBC Hgb Hct MCV MCH MCHC RDW Plt Count MPV Neut % (Auto) Lymph % (Auto) Pershing % (Auto) Eos % (Auto) Baso % (Auto) Neut # (Auto) Lymph # (Auto) Pershing # (Auto) Eos # (Auto) Baso # (Auto) Neutrophils % (Manual) Lymphocytes % (Manual) Monocytes % (Manual) Eosinophils % (Manual) Platelet Estimate Hypochromasia (manual) Poikilocytosis (manual Anisocytosis (manual) Target Cells Sodium 129 L Potassium 2.8 L Chloride 95 L Carbon Dioxide 27 Anion Gap 10 BUN 7 L Creatinine 0.6 L Est GFR ( Amer) > 60 Est GFR (Non-Af Amer) > 60 POC Glucose (mg/dL) 102 Random Glucose 131 H Calcium 7.3 L Phosphorus 2.5 Total Bilirubin 0.7 AST 43 ALT 27 Alkaline Phosphatase 68 Total Creatine Kinase 469 H Total Protein 6.1 L Albumin 3.0 L Globulin 3.2 Albumin/Globulin Ratio 0.9 L Blood Type O POSITIVE Antibody Screen Negative 10/04/17 11:54 WBC 12.0 H RBC 3.17 L Hgb 9.6 L D Hct 27.4 L MCV 86.2 MCH 30.2 MCHC 35.1 RDW 15.3 H Plt Count 427 H MPV 6.7 L Neut % (Auto) 75.0 Lymph % (Auto) 5.8 L Pershing % (Auto) 8.2 Eos % (Auto) 10.6 H Baso % (Auto) 0.4 Neut # (Auto) 9.0 H Lymph # (Auto) 0.7 L Pershing # (Auto) 1.0 H Eos # (Auto) 1.3 H Baso # (Auto) 0.1 Neutrophils % (Manual) 76 H Lymphocytes % (Manual) 8 L Monocytes % (Manual) 4 Eosinophils % (Manual) 12 H Platelet Estimate Normal Hypochromasia (manual) Slight Poikilocytosis (manual Slight Anisocytosis (manual) Slight Target Cells Slight Sodium Potassium Chloride Carbon Dioxide Anion Gap BUN Creatinine Est GFR ( Amer) Est GFR (Non-Af Amer) POC Glucose (mg/dL) Random Glucose Calcium Phosphorus Total Bilirubin AST ALT Alkaline Phosphatase Total Creatine Kinase Total Protein Albumin Globulin Albumin/Globulin Ratio Blood Type Antibody Screen Attending/Attestation - Attestation I have personally seen and examined this patient.: Yes I have fully participated in the care of the patient.: Yes I have reviewed all pertinent clinical information: Yes Notes (Text): 10/04/17 16:07 Patient seen with GI fellow in ER for initial evaluation for anemia. In a nutshell this is a 62 yo male with PMHx significant for EtOH abuse and homelessness who presented to the ED with bilateral eye discharge, bacterial conjuctivitis and body lice. He was found to have Hb 6.8 s/p 2 units PRBC with appropriate response. Elective EGD showed gastritis and no stigmata of recent bleeding. Gastric and duodenal biopsies were done. Likely reason for anemia is BM suppression from alcohol with high retic count. Rest of treatment as per detox and primary team. Thank you for letting us participate in the care of your patient
[2017-10-04] MEDS ORDERED: Ferric Sodium Gluconat Complex 125 MG in Sodium Chloride 0.9% 100 ML IVPB ONE (10:15)
[2017-10-04 10:25] LABS: ALB/GLOB RATIO 0.9 (1.0-2.1); ALT/SGPT 27 U/L (21-72); AST/SGOT 43 U/L (17-59); BLOOD UREA NITROGEN 7 mg/dL (9-20); CALCIUM 7.3 mg/dl (8.6-10.4); GFR AFRICAN-AMERICAN > 60; GFR NON-AFRICAN AMERICAN > 60
[2017-10-04] MEDS: Clotrimazole 1% Cream(30 gm) TOP SCH ×2 (10:58→18:29)
--- NOTE | 2017-10-04 11:02 | CP.PCM.PN ---
Subjective - Date & Time of Evaluation Date of Evaluation: 10/04/17 Time of Evaluation: 11:00 - Subjective Subjective: Progress note dictated # [id number] Objective - Vital Signs/Intake and Output Vital Signs (last 24 hours): Temp Pulse Resp BP Pulse Ox 98.8 F 104 H 16 142/89 100 10/04/17 08:22 10/04/17 08:22 10/04/17 08:22 10/04/17 08:22 10/04/17 08:22 - Medications Medications: Current Medications Chlordiazepoxide (Librium) 25 mg PO Q6 [facility] PRN Reason: Taper Stop: 10/07/17 17:59 Last Admin: 10/04/17 07:54 Dose: 25 mg Ciprofloxacin (Ciloxan 0.3% Ophth Soln) 1 drop OU Q8H [facility] Clotrimazole (Lotrimin 1%) 0 gm TOP BID [facility] Last Admin: 10/04/17 10:58 Dose: 1 % Cyanocobalamin (Vitamin B12 1000 Mcg/Ml Inj) 1,000 mcg IM DAILY [facility] Stop: 10/07/17 10:01 Last Admin: 10/04/17 10:58 Dose: 1,000 mcg Folic Acid (Folic Acid) 1 mg PO DAILY [facility] Last Admin: 10/04/17 09:49 Dose: Not Given Dextrose/Sodium Chloride (Dextrose 5%/0.9% Ns 1000 Ml) 1,000 mls @ 75 mls/hr IV CONT [facility] Last Admin: 10/04/17 08:58 Dose: 75 mls/hr Ferric Sodium Gluconate Complex 125 mg/ Sodium Chloride 110 mls @ 105 mls/hr IVPB ONCE ONE Stop: 10/04/17 11:17 Last Admin: 10/04/17 10:55 Dose: 105 mls/hr Potassium Chloride (Potassium Chloride 20 Meq/100 Ml) 20 meq in 100 mls @ 50 mls/hr IVPB Q2 [facility] Stop: 10/04/17 15:59 Lorazepam (Ativan) 0.5 mg IVP Q4H PRN PRN Reason: Symptoms of alcohol withdrawl Last Admin: 10/03/17 11:30 Dose: 0.5 mg Multivitamins (Hexavitamin) 1 tab PO DAILY [facility] Last Admin: 10/04/17 09:50 Dose: Not Given Pantoprazole Sodium (Protonix Inj) 40 mg IVP Q12H [facility] Last Admin: 10/04/17 07:49 Dose: 40 mg Thiamine HCl (Vitamin B1 Tab) 100 mg PO DAILY [facility] Last Admin: 10/04/17 09:50 Dose: Not Given - Labs Labs: 10/03/17 01:06 10/04/17 09:57 PT 14.1 SECONDS (9.7-12.2) H 10/02/17 20:24 INR 1.3 10/02/17 20:24 APTT 25 SECONDS (21-34) 10/02/17 20:24
[2017-10-04] MEDS: Ciprofloxacin 0.3% OPTH SOLN OU SCH ×2 (11:11→20:03)
[2017-10-04 12:00] LABS: BASO # 0.1 K/uL (0.0-0.2); BASO % 0.4 % (0.0-2.0); EOS # 1.3 K/uL (0.0-0.7); EOS % 10.6 % (0.0-4.0); LYMPH # 0.7 K/uL (1.0-4.3); LYMPH % 5.8 % (20.0-40.0); MEAN CELL VOLUME 86.2 fL (80.0-94.0); MEAN CORPUSCULAR HEMOGLOBIN 30.2 pg (27.0-31.0); MEAN CORPUSCULAR HGB CONC 35.1 g/dL (33.0-37.0); MEAN PLATELET VOLUME 6.7 fL (7.2-11.7); MONO % 8.2 % (0.0-10.0); NRBC % 0.2 % (0.0-2.0); PLATELET COUNT 427 K/uL (130-400); RBC 3.17 Mil/uL (4.40-5.90); RED CELL DISTRIBUTION WIDTH 15.3 % (11.5-14.5)
[2017-10-04 12:02] LABS: HEMOGLOBIN 9.6 g/dL (12.0-18.0)
[2017-10-04 12:23] LABS: EOSINOPHIL 12 % (0-4); LYMPHOCYTE 8 % (20-40); MONOCYTE 4 % (0-10); NEUTROPHIL 76 % (50-75); PLATELET ESTIMATE NORMAL (NORMAL); TOTAL CELLS COUNTED 100
[2017-10-04 12:24] LABS: ANISOCYTOSIS SLIGHT; HYPOCHROMIC SLIGHT; POIKILOCYTOSIS SLIGHT; TARGET CELLS SLIGHT
[2017-10-04] MEDS ORDERED: Lactated Ringer's 1,000 ML IV ONE (13:30)
[2017-10-04] MEDS ORDERED: Propofol 10 mg/ml Inj (20 ML) ONE (13:39)
[2017-10-04] MEDS ORDERED: Lidocaine Hydrochloride 5 ML INJ ONE (13:39)
[2017-10-04] MEDS ORDERED: Midazolam 2 MG/2 ML VIAL ONE (13:39)
[2017-10-04] MEDS ORDERED: Phenylephrine 10 mg/ml Inj ONE (13:55)
--- NOTE | 2017-10-04 14:12 | PCM.PSYCH ---
Initial Psychiatric Evaluation - Initial Psychiatric Evaluation Type of Admission: Voluntary Legal Status: Capacity Chief Complaint (in patient's own words): "I want to get rid of the bugs" History of Present Illness and Precipitating Events: Consultation was requested for his [id number] withdrawal. The patient is a 62 year old single, male who is currently unemployed and homeless. He is accompanied by his sister. The patient reports that he staying at a senior living in the [place]. His sister reports that he had body lice while there but it was since taken care of, although the patient does not believe that it is gone. The patient also reports a history of chronic pain, stating that his stomach hurt and his whole body hurts. The patient has a history of alcoholism, reporting that he drinks 3 bottles of vodka a day for the past 15 years, however his sister states that he started drinking in his 20s. The patient last drank on Wednesday because he started getting tremors. The patient reports feeling depressed now, but denies suicidal ideation, auditory hallucinations, visual hallucinations, or auditory hallucinations. The patient denies ever having seizures, or DTs. The patient denies the use of illicit drugs and cigarettes. The patient denies any current legal issues. The patient reports that he would like to go to an inpatient rehab. Detox Hx: denies Rehab Hx: denies Medical Hx: denies Medications: denies Psych Hx: denies Fam Hx: denies Current Medications: Active Medications Generic Name Dose Route Start Last Admin Trade Name Freq PRN Reason Stop Dose Admin Acetaminophen 650 mg 10/04/17 14:08 Tylenol 325mg Tab PO Q6 PRN Pain, Mild (1-3) Chlordiazepoxide 25 mg 10/03/17 18:00 10/04/17 12:29 Librium PO 10/07/17 17:59 25 mg Q6 [facility] Administration Taper Ciprofloxacin 1 drop 10/03/17 17:30 10/04/17 11:11 Ciloxan 0.3% Ophth Soln OU Not Given Q8H [facility] Clotrimazole 0 gm 10/03/17 00:30 10/04/17 10:58 Lotrimin 1% TOP 1 % BID [facility] Administration Cyanocobalamin 1,000 mcg 10/03/17 14:30 10/04/17 10:58 Vitamin B12 1000 Mcg/Ml Inj IM 10/07/17 10:01 1,000 mcg DAILY [facility] Administration Folic Acid 1 mg 10/04/17 10:00 10/04/17 09:49 Folic Acid PO Not Given DAILY [facility] Dextrose/Sodium Chloride 1,000 mls @ 75 mls/hr 10/02/17 23:45 10/04/17 08:58 Dextrose 5%/0.9% Ns 1000 Ml IV 75 mls/hr CONT [facility] Administration Potassium Chloride 20 meq in 100 mls @ 50 mls/hr 10/04/17 12:00 10/04/17 12: 29 Potassium Chloride 20 Meq/100 Ml IVPB 10/04/17 15:59 50 mls/hr Q2 [facility] Administration Lorazepam 0.5 mg 10/03/17 00:12 10/03/17 11:30 Ativan IVP 0.5 mg Q4H PRN Administration Symptoms of alcohol withdrawl Multivitamins 1 tab 10/04/17 10:00 10/04/17 09:50 Hexavitamin PO Not Given DAILY [facility] Pantoprazole Sodium 40 mg 10/03/17 17:30 10/04/17 07:49 Protonix Inj IVP 40 mg Q12H [facility] Administration Pneumococcal Polyvalent Vaccine 0.5 ml 10/05/17 10:00 Pneumovax 23 Vaccine IM 10/05/17 10:01 .ONCE ONE Thiamine HCl 100 mg 10/04/17 10:00 10/04/17 09:50 Vitamin B1 Tab PO Not Given DAILY [facility] Past Psychiatric History - Past Psychiatric History Previous Treatment History: None Pertinent Medical Hx (Current Medical&Sleep Prob, Allergies): Allergies Allergy/AdvReac Type Severity Reaction Status Date / Time No Known Allergies Allergy Verified 10/02/17 18:32 No Known Home Med 10/02/17 Review of Systems - Gastrointestinal Gastrointestinal: Abdominal Pain - Musculoskeletal Musculoskeletal: Myalgias - Psychiatric Psychiatric: Depression. absent: Auditory Hallucinations, Suicidal Ideation, Visual Hallucinations Mental Status Examination - Personal Presentation Personal Presentation: Looks older than stated age - Affect Affect: Constricted - Motor Activity Motor Activity: Calm - Reliability in Providing Information Reliability in Providing Information: Fair - Speech Speech: Organized - Mood Mood: Depressed - Formal Thought Process Formal Thought Process: No Impairment - Obsessions/Compulsions Obsessions: None Compulsions: None - Cognitive Functions Orientation: Person, Place, Time Sensorium: Drowsy Attention/Concentration: Attentive Abstract Thinking: [place] Estimate of Intelligence: Average Judgement: Intact, as evidence by: Insight regarding need for hospitalization Memory: Recent intact, as evidence by: Ability to recall events of the day, Remote intact, as evidenced by: Abilit to recall sig. life events - Risk Risk: Seizure, Withdrawal, Falls, Diminished functioning - Strength & Assets Inventory Strength & Assets Inventory: Family support - Limitations Limitations: Living alone DSM 5 DX - DSM 5 DSM 5 Diagnosis: Alcohol Withdrawal Alcohol Use d/o - severe Depression - unspecified - Recommended/Plan of Treatment Treatment Recommendations and Plan of Treatment: Alcohol Detox Start Remeron As needed medications All risks, benefits and alternatives of the meds discussed, and the pt agreed and understood. Supportive therapy and psychoeducation ID for abstinence CBT for relapse prevention Encourage MAT Refer to rehab or IOP, and self-help groups 34 min Projected ELOS: ICU dependent Prognosis: good with treatment Discharge Plan and Discharge Criteria: Inpatient Rehab and MAT - Smoking Cessation Smoking Cessation Initiated: No Reason for not providing: Pt does not smoke
[2017-10-04 19:07] LABS: BLOOD UREA NITROGEN 6 mg/dL (9-20); CALCIUM 7.7 mg/dl (8.6-10.4); GFR AFRICAN-AMERICAN > 60; GFR NON-AFRICAN AMERICAN > 60
--- NOTE | 2017-10-04 21:32 | CP.PCM.PN ---
Subjective - Date & Time of Evaluation Date of Evaluation: 10/04/17 Time of Evaluation: 20:10 - Subjective Subjective: Has some pruritis Objective - Vital Signs/Intake and Output Vital Signs (last 24 hours): Temp Pulse Resp BP Pulse Ox 97.7 F 123 H 20 137/88 94 L 10/04/17 14:30 10/04/17 18:00 10/04/17 14:30 10/04/17 14:30 10/04/17 14:30 Intake and Output: 10/04/17 10/05/17 18:59 06:59 Intake Total 151 500 Balance 151 500 - Medications Medications: Current Medications Acetaminophen (Tylenol 325mg Tab) 650 mg PO Q6 PRN PRN Reason: Pain, Mild (1-3) Chlordiazepoxide (Librium) 25 mg PO TID [facility] PRN Reason: Taper Stop: 10/07/17 17:59 Last Admin: 10/04/17 18:32 Dose: 25 mg Ciprofloxacin (Ciloxan 0.3% Oph Soln) 1 drop OU Q8H [facility] Last Admin: 10/04/17 20:03 Dose: 1 drop Clotrimazole (Lotrimin 1%) 0 gm TOP BID [facility] Last Admin: 10/04/17 18:29 Dose: 1 % Cyanocobalamin (Vitamin B12 1000 Mcg/Ml Inj) 1,000 mcg IM DAILY [facility] Stop: 10/07/17 10:01 Last Admin: 10/04/17 10:58 Dose: 1,000 mcg Folic Acid (Folic Acid) 1 mg PO DAILY [facility] Last Admin: 10/04/17 09:49 Dose: Not Given Dextrose/Sodium Chloride (Dextrose 5%/0.9% Ns 1000 Ml) 1,000 mls @ 75 mls/hr IV CONT [facility] Last Admin: 10/04/17 08:58 Dose: 75 mls/hr Lorazepam (Ativan) 1 mg IVP Q4H PRN PRN Reason: Symptoms of alcohol withdrawl Multivitamins (Hexavitamin) 1 tab PO DAILY [facility] Last Admin: 10/04/17 09:50 Dose: Not Given Pantoprazole Sodium (Protonix Inj) 40 mg IVP Q12H [facility] Last Admin: 10/04/17 18:30 Dose: 40 mg Pneumococcal Polyvalent Vaccine (Pneumovax 23 Vaccine) 0.5 ml IM .ONCE ONE Stop: 10/05/17 10:01 Thiamine HCl (Vitamin B1 Tab) 100 mg PO DAILY [facility] Last Admin: 10/04/17 09:50 Dose: Not Given - Labs Labs: 10/04/17 11:54 10/04/17 18:47 PT 14.1 SECONDS (9.7-12.2) H 10/02/17 20:24 INR 1.3 10/02/17 20:24 APTT 25 SECONDS (21-34) 10/02/17 20:24 - Head Exam Head Exam: ATRAUMATIC - Eye Exam Eye Exam: Normal appearance - ENT Exam ENT Exam: Mucous Membranes Dry - Respiratory Exam Respiratory Exam: NORMAL BREATHING PATTERN - Cardiovascular Exam Cardiovascular Exam: +S1, +S2 - GI/Abdominal Exam GI & Abdominal Exam: Normal Bowel Sounds Assessment and Plan (1) Anemia Assessment & Plan: iron deficiency and b12 deficiency element of bone marrow suppression from ETOH Status: Acute (2) Leukocytosis Status: Acute (3) Coagulopathy Status: Acute
[2017-10-04] MEDS: Magnesium Sulfate 1 gm in D5W 1 GM/100 ML BAG IVPB SCH ×2 (22:40→23:35)
[2017-10-04] MEDS: Potassium & Sodium Phosphate PO SCH (22:50)
--- NOTE | 2017-10-04 22:52 | PN ---
DATE: 10/04/2017. SUBJECTIVE: The patient was seen and examined at bedside. The patient complaining of generalized body aches, denies any headache, dizziness. His purulent discharge from eyes is still present. Denies any chest pain, shortness of breath or wheezing. Denies any nausea, vomiting, abdominal pain, diarrhea or constipation. Denies any urinary complaints. All other systems reviewed and were found to be negative. PHYSICAL EXAMINATION: GENERAL: Middle-aged unkempt male lying in bed in no acute distress. VITAL SIGNS: Blood pressure 142/89, pulse 104, respirations 16, temperature 98.8 degree Fahrenheit, O2 saturations 100% on room air. HEENT: Pupils equal, reacting to light and accommodation. Conjunctival erythema noted. Purulent discharge noted. No oral thrush. No pharyngeal congestion. NECK: Supple. No JVD. LUNGS: Bilateral vesicular breath sounds. No wheezing, no rhonchi. CVS: S1 and S2 present. Regular. ABDOMEN: Soft, nontender. Bowel sounds present. No guarding, no rigidity. No rebound tenderness noted. INCLUSION INTERN: Alert, awake, oriented x3. No focal deficits noted. EXTREMITIES: Chronic venous changes with onychomycosis of the toenails and multiple scratch naranjo all over the body. MEDICATIONS: Include Tylenol 650 p.o. q. 6 p.r.n., Librium tapering doses, ciprofloxacin eye drops, Lotrimin cream, B12 1000 mcg IM daily, D5 normal saline at 75 mL an hour, folic acid 1 mg daily, Ativan 0.5 mg IV push q. 4 p.r.n., multivitamin, Protonix 40 mg q. 12 hours, thiamine 100 mg p.o. daily. LABORATORY DATA: From this morning; WBC 12, hemoglobin 9.6, hematocrit 27.4, platelets 427, sodium 129, potassium 2.8, chloride 95, bicarb 27, BUN 7, creatinine 0.6, glucose 102, calcium 7.3, phosphorus 2.5, iron saturation is 5, CPK 469, total protein 6.1, albumin 3.0. Stool for occult blood negative. Urine drug screen negative. Alcohol 178. Status post EGD consistent with hiatal hernia and gastritis. ASSESSMENT AND PLAN: A middle-aged male with history of ethyl alcohol abuse with intoxication, homeless, admitted for severe anemia, conjunctivitis, status post 2 units of PRBC transfusion with improved H and H, hypokalemia, anemia, probably from multiple factors, B12, and iron deficiency, and bone marrow suppression from ethyl alcohol abuse, status post EGD consistent with hiatal hernia and gastritis, ethyl alcohol intoxication now possibly going into withdrawal with elevated blood pressure and tachycardia. We will continue with Librium tapering doses. We will give Ativan as needed, continue with thiamine, multivitamin and folate. Psychiatry consult. GI and Hematology consults appreciated. Monitor H and H closely, supplement IV iron, and B12 as ordered. Potassium is being replaced, followup with repeat BMP results, replace as needed. We will request Podiatry consult. We will add further recommendation as his clinical course progresses. Discussed with patient's sister at bedside. Daina Wooten MD
[2017-10-05] MEDS: Dextrose 5%/0.9% NS 1,000 ML IV SCH (06:07)
[2017-10-05] MEDS: Ciprofloxacin 0.3% OPTH SOLN OU SCH ×3 (06:07→18:04)
[2017-10-05 08:47] LABS: BASO % 0.3 % (0.0-2.0); EOS # 0.7 K/uL (0.0-0.7); EOS % 5.6 % (0.0-4.0); HEMOGLOBIN 9.7 g/dL (12.0-18.0); LYMPH # 0.6 K/uL (1.0-4.3); LYMPH % 4.7 % (20.0-40.0); MEAN CELL VOLUME 85.3 fL (80.0-94.0); MEAN CORPUSCULAR HEMOGLOBIN 30.2 pg (27.0-31.0); MEAN CORPUSCULAR HGB CONC 35.4 g/dL (33.0-37.0); MEAN PLATELET VOLUME 6.5 fL (7.2-11.7); MONO # 1.2 K/uL (0.0-0.8); MONO % 9.5 % (0.0-10.0); NEUT # 9.8 K/uL (1.8-7.0); NEUT % 79.9 % (50.0-75.0); NRBC % 0.1 % (0.0-2.0); PLATELET COUNT 435 K/uL (130-400); RBC 3.21 Mil/uL (4.40-5.90); RED CELL DISTRIBUTION WIDTH 15.1 % (11.5-14.5); WHITE BLOOD COUNT 12.3 K/uL (4.8-10.8)
[2017-10-05 09:13] LABS: ALB/GLOB RATIO 0.9 (1.0-2.1); ALBUMIN 2.9 g/dL (3.5-5.0); ALT/SGPT 27 U/L (21-72); AST/SGOT 30 U/L (17-59); BLOOD UREA NITROGEN 5 mg/dL (9-20); CALCIUM 7.2 mg/dl (8.6-10.4); GFR AFRICAN-AMERICAN > 60; GFR NON-AFRICAN AMERICAN > 60; MAGNESIUM 1.3 mg/dL (1.6-2.3)
[2017-10-05] MEDS: Clotrimazole 1% Cream(30 gm) TOP SCH ×2 (09:53→18:03)
[2017-10-05] MEDS: Multiple Vitamins Tab PO SCH (09:53)
[2017-10-05] MEDS: Potassium & Sodium Phosphate PO SCH ×4 (09:54→22:32)
[2017-10-05 10:00] LABS: ANISOCYTOSIS SLIGHT; BASOPHIL 1 % (0-2); EOSINOPHIL 5 % (0-4); LYMPHOCYTE 6 % (20-40); MONOCYTE 10 % (0-10); NEUTROPHIL 76 % (50-75); REACTIVE LYMPHOCYTES 2 % (0-0); TOTAL CELLS COUNTED 100
[2017-10-05] MEDS ORDERED: Pneumococcal 23-Valent Vaccine IM ONE (10:00)
[2017-10-05] MEDS ORDERED: Potassium Chloride 20 mEq ER Tab PO ONE ×2 (10:00→11:30)
[2017-10-05 10:01] LABS: HYPOCHROMIC SLIGHT; PLATELET ESTIMATE SLIGHTLY INCREASED (NORMAL); POIKILOCYTOSIS SLIGHT
[2017-10-05] MEDS: Magnesium Sulfate 1 gm in D5W 1 GM/100 ML BAG IVPB SCH ×2 (10:01→10:23)
--- NOTE | 2017-10-05 10:02 | CP.PCM.PN ---
Subjective - Date & Time of Evaluation Date of Evaluation: 10/05/17 Time of Evaluation: 10:15 - Subjective Subjective: Progress note dictated #[id number] Objective - Vital Signs/Intake and Output Vital Signs (last 24 hours): Temp Pulse Resp BP Pulse Ox 98.8 F 115 H 20 144/84 94 L 10/04/17 23:20 10/05/17 08:36 10/04/17 23:20 10/04/17 23:20 10/04/17 23:20 Intake and Output: 10/05/17 10/05/17 06:59 18:59 Intake Total 500 Balance 500 - Medications Medications: Current Medications Acetaminophen (Tylenol 325mg Tab) 650 mg PO Q6 PRN PRN Reason: Pain, Mild (1-3) Chlordiazepoxide (Librium) 25 mg PO TID [facility] PRN Reason: Taper Stop: 10/07/17 17:59 Last Admin: 10/05/17 09:53 Dose: 25 mg Ciprofloxacin ([facility]an [facility]) 1 drop OU Q8H [facility] Last Admin: 10/05/17 09:53 Dose: 1 drop Clotrimazole (Lotrimin 1%) 0 gm TOP BID [facility] Last Admin: 10/05/17 09:53 Dose: 1 applic Cyanocobalamin (Vitamin B12 1000 Mcg/Ml Inj) 1,000 mcg IM DAILY [facility] Stop: 10/07/17 10:01 Last Admin: 10/05/17 09:54 Dose: 1,000 mcg Folic Acid (Folic Acid) 1 mg PO DAILY [facility] Last Admin: 10/05/17 09:53 Dose: 1 mg Dextrose/Sodium Chloride (Dextrose 5%/0.9% Ns 1000 Ml) 1,000 mls @ 75 mls/hr IV CONT [facility] Last Admin: 10/05/17 06:07 Dose: 75 mls/hr Magnesium Sulfate/Dextrose (Magnesium Sulfate 1 Gm/100 Ml D5w) 1 gm in 100 mls @ 300 mls/hr IVPB Q30M [facility] Stop: 10/05/17 10:49 Potassium Chloride (Potassium Chloride 20 Meq/100 Ml) 20 meq in 100 mls @ 50 mls/hr IVPB ONCE ONE Stop: 10/05/17 11:57 Lorazepam (Ativan) 1 mg IVP Q4H PRN PRN Reason: Symptoms of alcohol withdrawl Last Admin: 10/05/17 06:37 Dose: 1 mg Multivitamins (Hexavitamin) 1 tab PO DAILY [facility] Last Admin: 10/05/17 09:53 Dose: 1 tab Pantoprazole Sodium (Protonix Inj) 40 mg IVP Q12H [facility] Last Admin: 10/05/17 05:59 Dose: 40 mg Potassium Chloride (K-Dur 20 Meq Er Tab) 40 meq PO ONCE ONE Stop: 10/05/17 10:01 Potassium Phos/Sodium Phos (Neutra-Phos) 1 pkt PO QID [facility] Last Admin: 10/05/17 09:54 Dose: 1 pkt Thiamine HCl (Vitamin B1 Tab) 100 mg PO DAILY [facility] Last Admin: 10/05/17 09:54 Dose: 100 mg - Labs Labs: 10/05/17 08:35 10/05/17 08:35 PT 14.1 SECONDS (9.7-12.2) H 10/02/17 20:24 INR 1.3 10/02/17 20:24 APTT 25 SECONDS (21-34) 10/02/17 20:24
--- NOTE | 2017-10-05 13:41 | PCM.PYCHPN ---
Psychiatric Progress Note - Psychiatric Progress Note Patient seen today, length of contact: 15 min Patient Chief Complaint: "bugs" Problems Identified/Issues Discussed: The pt is seen, chart reviewed, case discussed with staff. The pt is compliant with medications and reports no side-effects. Symptoms improving and patient needs more time to stabilize. Support given. Patient is still confused but is better than previous day. He reports that the year is "1986" when told to try again he said it was 2087. He knows he is on [facility] though. He reports that he is in the hospital for "bugs," which may be due to his alcohol withdrawal (tactile hallucination) , although his sister told us in ER that they "got rid of the body lice, recently." Social work will speak with him in order to arrange for an inpatient rehab after completing his alcohol detox. Medication Change: Yes (detox changes daily) Medical Record Reviewed: Yes Mental Status Examination - Cognitive Function Orientation: Person, Place Memory: Impaired Attention: Poor Concentration: Poor Association: Loose Fund of Knowledge: Poor - Mood Mood: Depressed, Anxious - Affect Affect: Constricted - Speech Speech: Slurred - Formal Thought Process Formal Thought Process: No Impairment - Suicidal Ideation Suicidal Ideation: No - Homicidal Ideation Homicidal Ideation: No Goal/Treatment Plan - Goal/Treatment Plan Need for Continued Stay: Remain at risks for inpatient hospitalization, Discharge may exacerbated symptoms, Severe functional impairment, Other (medical ) Progress Toward Problem(s) and Goals/Treatment Plan: Alcohol Detox continues Remeron at night for sleep and depressive sxs As needed medications All risks, benefits and alternatives of the meds discussed, and the pt agreed and understood. Supportive therapy and psychoeducation IA for abstinence Refer to rehab or IOP, and self-help groups
--- NOTE | 2017-10-05 20:36 | CP.PCM.PN ---
Subjective - Date & Time of Evaluation Date of Evaluation: 10/05/17 Time of Evaluation: 18:15 - Subjective Subjective: Feeling better Objective - Vital Signs/Intake and Output Vital Signs (last 24 hours): Temp Pulse Resp BP Pulse Ox 100.7 F H 116 H 20 144/84 94 L 10/05/17 18:04 10/05/17 12:00 10/04/17 23:20 10/04/17 23:20 10/04/17 23:20 Intake and Output: 10/05/17 10/06/17 18:59 06:59 Intake Total 1075 Balance 1075 - Medications Medications: Current Medications Acetaminophen (Tylenol 325mg Tab) 650 mg PO Q6 PRN PRN Reason: Pain, Mild (1-3) Last Admin: 10/05/17 18:04 Dose: 650 mg Chlordiazepoxide (Librium) 25 mg PO BID [facility] PRN Reason: Taper Stop: 10/07/17 17:59 Last Admin: 10/05/17 18:05 Dose: 25 mg Ciprofloxacin (Ciloxan 0.3% [facility]) 1 drop OU Q8H [facility] Last Admin: 10/05/17 18:04 Dose: 1 drop Clotrimazole (Lotrimin 1%) 0 gm TOP BID [facility] Last Admin: 10/05/17 18:03 Dose: 1 applic Cyanocobalamin (Vitamin B12 1000 Mcg/Ml Inj) 1,000 mcg IM DAILY [facility] Stop: 10/07/17 10:01 Last Admin: 10/05/17 09:54 Dose: 1,000 mcg Folic Acid (Folic Acid) 1 mg PO DAILY [facility] Last Admin: 10/05/17 09:53 Dose: 1 mg Dextrose/Sodium Chloride (Dextrose 5%/0.9% Ns 1000 Ml) 1,000 mls @ 75 mls/hr IV CONT [facility] Last Admin: 10/05/17 06:07 Dose: 75 mls/hr Lorazepam (Ativan) 1 mg IVP Q4H PRN PRN Reason: Symptoms of alcohol withdrawl Last Admin: 10/05/17 06:37 Dose: 1 mg Multivitamins (Hexavitamin) 1 tab PO DAILY [facility] Last Admin: 10/05/17 09:53 Dose: 1 tab Pantoprazole Sodium (Protonix Inj) 40 mg IVP Q12H [facility] Last Admin: 10/05/17 18:02 Dose: 40 mg Potassium Phos/Sodium Phos (Neutra-Phos) 1 pkt PO QID [facility] Last Admin: 10/05/17 18:04 Dose: 1 pkt Thiamine HCl (Vitamin B1 Tab) 100 mg PO DAILY [facility] Last Admin: 10/05/17 09:54 Dose: 100 mg - Labs Labs: 10/05/17 08:35 10/05/17 08:35 PT 14.1 SECONDS (9.7-12.2) H 10/02/17 20:24 INR 1.3 10/02/17 20:24 APTT 25 SECONDS (21-34) 10/02/17 20:24 - Head Exam Head Exam: ATRAUMATIC - Eye Exam Eye Exam: Normal appearance - ENT Exam ENT Exam: Mucous Membranes Dry - Respiratory Exam Respiratory Exam: NORMAL BREATHING PATTERN - Cardiovascular Exam Cardiovascular Exam: +S1, +S2 - GI/Abdominal Exam GI & Abdominal Exam: Normal Bowel Sounds Assessment and Plan (1) Anemia Assessment & Plan: iron and b12 deficiency; on supplementation H/H improved Status: Acute (2) Leukocytosis Assessment & Plan: reactive Status: Acute (3) Coagulopathy Status: Acute
--- NOTE | 2017-10-05 22:14 | PN ---
DATE: 10/05/2017 SUBJECTIVE: The patient was seen and examined at bedside. The patient offers no new complaints. Denies any neurologic symptoms. PHYSICAL EXAMINATION: GENERAL: On examination, middle-aged male, lying in bed. Denies any distress. VITAL SIGNS: Blood pressure 144/84, pulse 119, temperature 98.8 degrees Fahrenheit, O2 saturations 94% on room air, respirations 20. HEENT: Pupils reacting to light and accommodation. Conjunctival erythema slightly better than yesterday. Decrease in purulent discharge. No oral thrush. No pharyngeal congestion. NECK: Supple. No JVD. LUNGS: Bilateral vesicular breath sounds. No wheezing. No rhonchi. CVS: S1, S2 present. Regular. ABDOMEN: Soft. Nontender. Bowel sounds present. No guarding. No wheezing. No rebound tenderness noted. TONGUE AND QUARTER STITCHER: Alert, awake, and oriented x3. No focal deficits noted. EXTREMITIES: Chronic venous changes and fungal infection and multiple scratch naranjo all over the body. MEDICATIONS: Include Tylenol as needed, Librium tapering doses, ciprofloxacin eyedrops, vitamin B12, D5 normal saline at 75 mL per hour, thiamine, folic acid, multivitamin, Ativan as needed, Protonix 40 mg IV q.12 hours. LABORATORY DATA: Labs from this morning: WBC 12.3, hemoglobin 9.7, hematocrit 27.4, platelets 435. Sodium 130, potassium 3.0, chloride 93, bicarbonate 28, BUN 5, creatinine 0.6, glucose 102. Calcium 7.2, phosphorus 3.2, magnesium 1.3, total bilirubin 0.6, AST 30, ALT 27, alkaline phosphatase 61, CPK 415. Stool occult blood negative. 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 The patient is on Librium tapering doses. Continue with Ativan as needed for withdrawal symptoms. Continue with IV Ferrlecit. Continue with iron. Continue with B12 supplementation, thiamine, multivitamin, and folate. custodial services manager for discharge planning. Daina Wooten MD [facility] # [id number]
[2017-10-06] MEDS: Ciprofloxacin 0.3% OPTH SOLN OU SCH ×3 (01:30→18:30)
[2017-10-06 07:53] LABS: BASO # 0.1 K/uL (0.0-0.2); BASO % 0.6 % (0.0-2.0); EOS # 0.4 K/uL (0.0-0.7); EOS % 2.4 % (0.0-4.0); HEMOGLOBIN 10.2 g/dL (12.0-18.0); LYMPH # 0.8 K/uL (1.0-4.3); LYMPH % 5.2 % (20.0-40.0); MEAN CELL VOLUME 85.4 fL (80.0-94.0); MEAN CORPUSCULAR HEMOGLOBIN 30.1 pg (27.0-31.0); MEAN CORPUSCULAR HGB CONC 35.3 g/dL (33.0-37.0); MEAN PLATELET VOLUME 6.6 fL (7.2-11.7); MONO # 1.3 K/uL (0.0-0.8); MONO % 8.7 % (0.0-10.0); NEUT # 12.7 K/uL (1.8-7.0); NEUT % 83.1 % (50.0-75.0); PLATELET COUNT 472 K/uL (130-400); RED CELL DISTRIBUTION WIDTH 15.3 % (11.5-14.5); WHITE BLOOD COUNT 15.3 K/uL (4.8-10.8)
[2017-10-06 08:17] LABS: ALB/GLOB RATIO 0.9 (1.0-2.1); ALBUMIN 2.8 g/dL (3.5-5.0); ALT/SGPT 16 U/L (21-72); AST/SGOT 27 U/L (17-59); BLOOD UREA NITROGEN 7 mg/dL (9-20); CALCIUM 7.5 mg/dl (8.6-10.4); GFR AFRICAN-AMERICAN > 60; GFR NON-AFRICAN AMERICAN > 60; MAGNESIUM 1.3 mg/dL (1.6-2.3)
[2017-10-06 10:09] LABS: ANISOCYTOSIS SLIGHT; EOSINOPHIL 4 % (0-4); LYMPHOCYTE 5 % (20-40); MONOCYTE 5 % (0-10); NEUTROPHIL 86 % (50-75); PLATELET ESTIMATE SLIGHTLY INCREASED (NORMAL); TOTAL CELLS COUNTED 100
[2017-10-06 10:10] LABS: HYPOCHROMIC SLIGHT; POLYCHROMIC SLIGHT
[2017-10-06] MEDS: Magnesium Sulfate 1 gm in D5W 1 GM/100 ML BAG IVPB SCH ×2 (10:29→12:51)
[2017-10-06] MEDS: Multiple Vitamins Tab PO SCH (10:29)
[2017-10-06] MEDS ORDERED: Potassium Chloride 20 mEq ER Tab PO ONE (10:30)
[2017-10-06] MEDS: Potassium & Sodium Phosphate PO SCH ×4 (10:37→21:39)
[2017-10-06] MEDS: Clotrimazole 1% Cream(30 gm) TOP SCH ×2 (10:40→18:49)
--- NOTE | 2017-10-06 15:42 | RAD ---
HISTORY: fever, r/o infiltrate COMPARISON: 10/02/2017 FINDINGS: LUNGS: No active pulmonary disease. PLEURA: No significant pleural effusion identified, no pneumothorax apparent. CARDIOVASCULAR: Normal. OSSEOUS STRUCTURES: No significant abnormalities. VISUALIZED UPPER ABDOMEN: Normal. OTHER FINDINGS: None. IMPRESSION: No active disease.
--- NOTE | 2017-10-06 18:38 | CP.PCM.PN ---
Subjective - Date & Time of Evaluation Date of Evaluation: 10/06/17 Time of Evaluation: 10:20 - Subjective Subjective: Progress note dictated # [id number] Objective - Vital Signs/Intake and Output Vital Signs (last 24 hours): Temp Pulse Resp BP Pulse Ox 97.8 F 120 H 20 118/69 96 10/06/17 15:15 10/06/17 15:15 10/06/17 15:15 10/06/17 15:15 10/06/17 15:15 Intake and Output: 10/06/17 10/06/17 06:59 18:59 Intake Total 960 680 Output Total 300 Balance 960 380 - Medications Medications: Current Medications Acetaminophen (Tylenol 325mg Tab) 650 mg PO Q6 PRN PRN Reason: Pain, Mild (1-3) Last Admin: 10/06/17 10:37 Dose: 650 mg Chlordiazepoxide (Librium) 25 mg PO DAILY [facility] PRN Reason: Taper Stop: 10/07/17 17:59 Last Admin: 10/06/17 10:28 Dose: 25 mg Ciprofloxacin (Ciloxan 0.3% [facility]) 1 drop OU Q8H [facility] Last Admin: 10/06/17 10:40 Dose: 1 drop Clotrimazole (Lotrimin 1%) 0 gm TOP BID [facility] Last Admin: 10/06/17 10:40 Dose: 1 applic Cyanocobalamin (Vitamin B12 1000 Mcg/Ml Inj) 1,000 mcg IM DAILY [facility] Stop: 10/07/17 10:01 Last Admin: 10/06/17 10:37 Dose: 1,000 mcg Folic Acid (Folic Acid) 1 mg PO DAILY [facility] Last Admin: 10/06/17 10:28 Dose: 1 mg Lorazepam (Ativan) 1 mg IVP Q4H PRN PRN Reason: Symptoms of alcohol withdrawl Last Admin: 10/05/17 06:37 Dose: 1 mg Multivitamins (Hexavitamin) 1 tab PO DAILY [facility] Last Admin: 10/06/17 10:29 Dose: 1 tab Pantoprazole Sodium (Protonix Inj) 40 mg IVP Q12H [facility] Last Admin: 10/05/17 18:02 Dose: 40 mg Potassium Phos/Sodium Phos (Neutra-Phos) 1 pkt PO QID [facility] Last Admin: 10/06/17 14:07 Dose: 1 pkt Thiamine HCl (Vitamin B1 Tab) 100 mg PO DAILY [facility] Last Admin: 10/06/17 10:28 Dose: 100 mg - Labs Labs: 10/06/17 07:11 10/06/17 07:11 PT 14.1 SECONDS (9.7-12.2) H 10/02/17 20:24 INR 1.3 10/02/17 20:24 APTT 25 SECONDS (21-34) 10/02/17 20:24
--- NOTE | 2017-10-06 20:42 | PN ---
DATE: 10/06/2017 SUBJECTIVE: The patient was seen and examined at bedside. The patient is complaining of headache. Denies any nausea or vomiting. Denies any visual changes. Denies any dizziness. Denies any chest pain, shortness of breath, or wheezing. Denies any neurological symptoms. All other systems reviewed and were found to be negative. PHYSICAL EXAMINATION GENERAL: A middle -aged male lying in bed in no acute distress. VITAL SIGNS: Blood pressure 115/74, pulse 109, respirations 20, temperature 100.3 degrees Fahrenheit, and O2 sat is 95% on room air. HEENT: Pupils equal, round, and reacting to light and accommodation. Conjunctival erythema decreasing with less mucopurulent discharge. No oral thrush. No pharyngeal congestion. NECK: Supple. No JVD. LUNGS: Bilateral vesicular breath sounds. No wheezing. No rhonchi. CVS: S1 and S2 present and regular. ABDOMEN: Soft and nontender. Bowel sounds present. No guarding. No rigidity. No rebound tenderness noted. ENGRAVER LETTERING: Alert, awake, and oriented x3. No focal deficits noted. EXTREMITIES: No edema. Chronic venous changes. MEDICATIONS: Include Librium, ciprofloxacin, vitamin B12, folic acid, Ativan as needed, Protonix 40 mg IV q.12 hours, Neutra-Phos one pack p.o. q.i.d., thiamine 100 mg daily, folic acid 1 mg daily, and multivitamins. LABORATORY DATA: Labs from this morning, WBC 15.3, hemoglobin 10.2, hematocrit 29, and platelets 472,000. Sodium 128, potassium 4.5, chloride 95, bicarb 26, BUN 7, creatinine 0.7, glucose 104, calcium 7.5, magnesium 1.3, AST 27, ALT 16, alkaline phosphatase 67, total protein 6.1, and albumin 2.8. DIAGNOSTIC DATA: Chest x-ray, no active disease. ASSESSMENT AND PLAN: Middle-aged male with history of ethyl alcohol abuse intoxication, going into withdrawal, gastritis, anemia, iron deficiency, B12 deficiency, multiple electrolyte abnormalities including hypokalemia, hypomagnesemia, debility, and elevated white blood cell count with low-grade temperatures, rule out any infectious etiology. We will do zurita culture. Chest x-ray was done and negative. Urinalysis and urine culture pending. Blood cultures pending. We will continue with Librium. Continue with Ativan as needed. Continue with thiamine, folic acid, multivitamins. We will request physical therapy. tax services intern for discharge planning. Daina Wooten MD
--- NOTE | 2017-10-06 22:15 | CP.PCM.PN ---
Subjective - Date & Time of Evaluation Date of Evaluation: 10/06/17 Time of Evaluation: 18:30 - Subjective Subjective: No complaints. Objective - Vital Signs/Intake and Output Vital Signs (last 24 hours): Temp Pulse Resp BP Pulse Ox 97.8 F 120 H 20 118/69 96 10/06/17 15:15 10/06/17 15:15 10/06/17 15:15 10/06/17 15:15 10/06/17 15:15 Intake and Output: 10/06/17 10/07/17 18:59 06:59 Intake Total 680 Output Total 300 Balance 380 - Medications Medications: Current Medications Acetaminophen (Tylenol 325mg Tab) 650 mg PO Q6 PRN PRN Reason: Pain, Mild (1-3) Last Admin: 10/06/17 10:37 Dose: 650 mg Chlordiazepoxide (Librium) 25 mg PO DAILY [facility] PRN Reason: Taper Stop: 10/07/17 17:59 Last Admin: 10/06/17 10:28 Dose: 25 mg Ciprofloxacin (Ciloxan 0.3% [facility]) 1 drop OU Q8H [facility] Last Admin: 10/06/17 18:30 Dose: 1 drop Clotrimazole (Lotrimin 1%) 0 gm TOP BID [facility] Last Admin: 10/06/17 18:49 Dose: 1 applic Cyanocobalamin (Vitamin B12 1000 Mcg/Ml Inj) 1,000 mcg IM DAILY [facility] Stop: 10/07/17 10:01 Last Admin: 10/06/17 10:37 Dose: 1,000 mcg Folic Acid (Folic Acid) 1 mg PO DAILY [facility] Last Admin: 10/06/17 10:28 Dose: 1 mg Lorazepam (Ativan) 1 mg IVP Q4H PRN PRN Reason: Symptoms of alcohol withdrawl Last Admin: 10/05/17 06:37 Dose: 1 mg Multivitamins (Hexavitamin) 1 tab PO DAILY [facility] Last Admin: 10/06/17 10:29 Dose: 1 tab Pantoprazole Sodium (Protonix Inj) 40 mg IVP Q12H [facility] Last Admin: 10/06/17 18:30 Dose: 40 mg Potassium Phos/Sodium Phos (Neutra-Phos) 1 pkt PO QID [facility] Last Admin: 10/06/17 21:39 Dose: 1 pkt Thiamine HCl (Vitamin B1 Tab) 100 mg PO DAILY [facility] Last Admin: 10/06/17 10:28 Dose: 100 mg - Labs Labs: 10/06/17 07:11 10/06/17 07:11 PT 14.1 SECONDS (9.7-12.2) H 10/02/17 20:24 INR 1.3 10/02/17 20:24 APTT 25 SECONDS (21-34) 10/02/17 20:24 - Head Exam Head Exam: ATRAUMATIC - Eye Exam Eye Exam: Normal appearance - ENT Exam ENT Exam: Mucous Membranes Dry - Respiratory Exam Respiratory Exam: NORMAL BREATHING PATTERN - Cardiovascular Exam Cardiovascular Exam: +S1, +S2 - GI/Abdominal Exam GI & Abdominal Exam: Normal Bowel Sounds Assessment and Plan (1) Anemia Assessment & Plan: iron + b12 deficiency s/p IV iron supplementation on IM b12 Status: Acute (2) Leukocytosis Assessment & Plan: on antibiotics Status: Acute
[2017-10-06] MEDS ORDERED: Vancomycin 1 gm/NS 200 ml 1 GM/200 ML BAG IVPB ONE (23:50)
[2017-10-07] MEDS: Ciprofloxacin 0.3% OPTH SOLN OU SCH ×3 (02:42→17:55)
--- NOTE | 2017-10-07 10:21 | CP.PCM.PN ---
Subjective - Date & Time of Evaluation Date of Evaluation: 10/07/17 Time of Evaluation: 10:30 - Subjective Subjective: Progress note dictated #[id number] Objective - Vital Signs/Intake and Output Vital Signs (last 24 hours): Temp Pulse Resp BP Pulse Ox 99.8 F H 122 H 20 114/69 95 10/07/17 00:44 10/07/17 00:44 10/07/17 00:44 10/07/17 00:44 10/07/17 00:44 - Medications Medications: Current Medications Acetaminophen (Tylenol 325mg Tab) 650 mg PO Q6 PRN PRN Reason: Pain, Mild (1-3) Last Admin: 10/06/17 10:37 Dose: 650 mg Chlordiazepoxide (Librium) 25 mg PO DAILY [facility] PRN Reason: Taper Stop: 10/07/17 17:59 Last Admin: 10/06/17 10:28 Dose: 25 mg Ciprofloxacin (Ciloxan 0.3% [facility]) 1 drop OU Q8H [facility] Last Admin: 10/07/17 09:22 Dose: 1 drop Clotrimazole (Lotrimin 1%) 0 gm TOP BID [facility] Last Admin: 10/06/17 18:49 Dose: 1 applic Folic Acid (Folic Acid) 1 mg PO DAILY [facility] Last Admin: 10/06/17 10:28 Dose: 1 mg Lorazepam (Ativan) 1 mg IVP Q4H [facility]N PRN Reason: Symptoms of alcohol withdrawl Last Admin: 10/05/17 06:37 Dose: 1 mg Multivitamins (Hexavitamin) 1 tab PO DAILY [facility] Last Admin: 10/06/17 10:29 Dose: 1 tab Pantoprazole Sodium (Protonix Inj) 40 mg IVP Q12H [facility] Last Admin: 10/07/17 07:06 Dose: Not Given Thiamine HCl (Vitamin B1 Tab) 100 mg PO DAILY [facility] Last Admin: 10/06/17 10:28 Dose: 100 mg - Labs Labs: 10/06/17 07:11 10/06/17 07:11 PT 14.1 SECONDS (9.7-12.2) H 10/02/17 20:24 INR 1.3 10/02/17 20:24 APTT 25 SECONDS (21-34) 10/02/17 20:24
[2017-10-07] MEDS: Multiple Vitamins Tab PO SCH (10:50)
[2017-10-07] MEDS: Clotrimazole 1% Cream(30 gm) TOP SCH ×2 (10:51→17:54)
[2017-10-07 11:26] LABS: BASO # 0.1 K/uL (0.0-0.2); BASO % 0.5 % (0.0-2.0); EOS # 0.6 K/uL (0.0-0.7); EOS % 4.2 % (0.0-4.0); HEMOGLOBIN 10.4 g/dL (12.0-18.0); LYMPH # 0.9 K/uL (1.0-4.3); LYMPH % 6.6 % (20.0-40.0); MEAN CELL VOLUME 85.7 fL (80.0-94.0); MEAN CORPUSCULAR HEMOGLOBIN 30.3 pg (27.0-31.0); MEAN CORPUSCULAR HGB CONC 35.4 g/dL (33.0-37.0); MEAN PLATELET VOLUME 6.5 fL (7.2-11.7); MONO # 1.6 K/uL (0.0-0.8); MONO % 11.7 % (0.0-10.0); NEUT # 10.5 K/uL (1.8-7.0); PLATELET COUNT 464 K/uL (130-400); RBC 3.43 Mil/uL (4.40-5.90); RED CELL DISTRIBUTION WIDTH 15.1 % (11.5-14.5); WHITE BLOOD COUNT 13.7 K/uL (4.8-10.8)
[2017-10-07 11:43] LABS: ALB/GLOB RATIO 0.8 (1.0-2.1); ALT/SGPT 13 U/L (21-72); AST/SGOT 30 U/L (17-59); BLOOD UREA NITROGEN 7 mg/dL (9-20); CALCIUM 7.9 mg/dl (8.6-10.4); GFR AFRICAN-AMERICAN > 60; GFR NON-AFRICAN AMERICAN > 60; MAGNESIUM 1.5 mg/dL (1.6-2.3)
[2017-10-07 11:51] LABS: BANDS 2 % (0-2); BASOPHIL 1 % (0-2); EOSINOPHIL 6 % (0-4); LYMPHOCYTE 5 % (20-40); MONOCYTE 12 % (0-10); NEUTROPHIL 74 % (50-75); TOTAL CELLS COUNTED 100
[2017-10-07 11:52] LABS: ANISOCYTOSIS SLIGHT; PLATELET ESTIMATE SLIGHTLY INCREASED (NORMAL); POIKILOCYTOSIS SLIGHT
[2017-10-07 11:53] LABS: HYPOCHROMIC SLIGHT; TARGET CELLS SLIGHT
[2017-10-07] MEDS: Vancomycin 1 gm/NS 200 ml 1 GM/200 ML BAG IVPB SCH (12:22)
[2017-10-07] MEDS ORDERED: Magnesium Sulfate 1 gm in D5W 1 GM/100 ML BAG IVPB ONE ×2 (14:16→17:00)
[2017-10-07] MEDS: Magnesium Sulfate 1 gm in D5W 1 GM/100 ML BAG IVPB SCH (16:38)
[2017-10-07] MEDS ORDERED: Ammonium Lactate 12% Lotion (225 g) EXT SCH (18:00)
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
--- NOTE | 2017-10-07 21:21 | CP.PCM.PN ---
Subjective - Date & Time of Evaluation Date of Evaluation: 10/07/17 Time of Evaluation: 18:00 - Subjective Subjective: Feels weak, family at bedside Objective - Vital Signs/Intake and Output Vital Signs (last 24 hours): Temp Pulse Resp BP Pulse Ox 97.6 F 109 H 20 115/75 100 10/07/17 17:59 10/07/17 17:59 10/07/17 17:59 10/07/17 17:59 10/07/17 17:59 Intake and Output: 10/07/17 10/08/17 18:59 06:59 Intake Total 730 Balance 730 - Medications Medications: Current Medications Acetaminophen (Tylenol 325mg Tab) 650 mg PO Q6 PRN PRN Reason: Pain, Mild (1-3) Last Admin: 10/06/17 10:37 Dose: 650 mg Ciprofloxacin (Ciloxan 0.3% Ophth Soln) 1 drop OU Q8H [facility] Last Admin: 10/07/17 17:55 Dose: 1 drop Clotrimazole (Lotrimin 1%) 0 gm TOP BID [facility] Last Admin: 10/07/17 17:54 Dose: 1 applic Folic Acid (Folic Acid) 1 mg PO DAILY [facility] Last Admin: 10/07/17 10:49 Dose: 1 mg Vancomycin/Sodium Chloride (Vancomycin 1 Gm/Ns 200 Ml) 1 gm in 200 mls @ 166.6 mls/hr IVPB Q12H [facility] Stop: 10/12/17 12:01 Last Admin: 10/07/17 12:22 Dose: 166.6 mls/hr Ketoconazole (Nizoral) 5 gm TOP BID [facility] Last Admin: 10/07/17 17:55 Dose: 5 gm Lorazepam (Ativan) 1 mg IVP Q4H PRN PRN Reason: Symptoms of alcohol withdrawl Last Admin: 10/05/17 06:37 Dose: 1 mg Multivitamins (Hexavitamin) 1 tab PO DAILY [facility] Last Admin: 10/07/17 10:50 Dose: 1 tab Pantoprazole Sodium (Protonix Inj) 40 mg IVP Q12H [facility] Last Admin: 10/07/17 17:53 Dose: 40 mg Thiamine HCl (Vitamin B1 Tab) 100 mg PO DAILY [facility] Last Admin: 10/07/17 10:49 Dose: 100 mg - Labs Labs: 10/07/17 11:20 10/07/17 11:20 PT 14.1 SECONDS (9.7-12.2) H 10/02/17 20:24 INR 1.3 10/02/17 20:24 APTT 25 SECONDS (21-34) 10/02/17 20:24 - Head Exam Head Exam: ATRAUMATIC - Eye Exam Eye Exam: Normal appearance - ENT Exam ENT Exam: Mucous Membranes Dry - Respiratory Exam Respiratory Exam: NORMAL BREATHING PATTERN - Cardiovascular Exam Cardiovascular Exam: +S1, +S2 - GI/Abdominal Exam GI & Abdominal Exam: Normal Bowel Sounds Assessment and Plan (1) Anemia Assessment & Plan: iron and b12 deficiency s/p IV iron b12 supplementation Status: Acute (2) Leukocytosis Assessment & Plan: on antibiotics Status: Acute
--- NOTE | 2017-10-07 21:32 | PN ---
DATE: 10/07/2017 SUBJECTIVE: The patient was seen and examined at bedside. The patient is still complaining of generalized fatigue, weakness, body ache, not feeling well with intermittent chills and rigors. Denies any other complaints. All other systems reviewed and was found to be negative. PHYSICAL EXAMINATION: GENERAL: Middle aged male, lying in bed, in no acute distress. VITAL SIGNS: Blood pressure 101/65, pulse 104, respirations 20, temperature 97.6 degrees Fahrenheit, and O2 saturation is 96% on 2 liters nasal cannula. HEENT: Pupils are equal, round and reacting to light and accommodation. Conjunctival erythema decreasing, less purulent discharge. No oral thrush. NECK: Supple. No JVD. LUNGS: Bilateral vesicular breath sounds. No wheezing. No rhonchi. CVS: S1 and S2 present. Regular. ABDOMEN: Soft. Nontender. Bowel sounds are present. No guarding. No rigidity. No rebound tenderness noted. PERMANENT WAVER: Alert, awake, oriented x3. No focal deficits noted. EXTREMITIES: No edema. MEDICATIONS: Include Tylenol as needed, Librium 25 mg p.o. daily, ciprofloxacin eye drops, Lotrimin cream, folic acid 1 mg p.o. daily, Nizoral 5 gm topical b.i.d., Ativan as needed, multivitamin 1 tablet daily, Protonix 40 mg IV q.12 hours, thiamine 100 mg daily, vancomycin 1 gm IV q.12 hours. LABORATORY DATA: Blood cultures from 10/06/2017 show gram-positive cocci in clusters. ASSESSMENT AND PLAN: Middle aged male with EtOH abuse, intoxication, on Librium protocol, multiple electrolyte abnormalities, hyponatremia, positive blood cultures, status post blood transfusion for anemia, iron-deficiency anemia, B12 deficiency, status post hypokalemia, persistent hypomagnesemia. The patient is on Librium protocol, Ativan as needed, started on vancomycin 1 gm q.12 hours, pending the identification and sensitivity of the blood cultures, repeat blood culture. Will continue with thiamine, folate, multivitamin, supplement magnesium, and obtain Renal evaluation for hyponatremia. Continue with Protonix. Discussed with case management and rn social work, bedside physical therapy for possible subacute rehab placement once medically stable. Daina Wooten MD [facility] # [phone]
[2017-10-07 21:37] LABS: URINE BACTERIA RARE (<OCC); URINE BILIRUBIN NEGATIVE (NEGATIVE); URINE BLOOD NEGATIVE (NEGATIVE); URINE CLARITY Clear (Clear); URINE COLOR Straw (YELLOW); URINE GLUCOSE (UA) 1+ mg/dL (Normal); URINE LEUKOCYTE ESTERASE NEG Leu/uL (Negative); URINE NITRATE NEGATIVE (NEGATIVE); URINE PROTEIN NEGATIVE (NEGATIVE); URINE UROBILINOGEN NORMAL mg/dL (0.2-1.0)
[2017-10-08] MEDS: Vancomycin 1 gm/NS 200 ml 1 GM/200 ML BAG IVPB SCH ×2 (00:50→11:34)
[2017-10-08] MEDS: Ciprofloxacin 0.3% OPTH SOLN OU SCH ×3 (02:24→17:15)
--- NOTE | 2017-10-08 05:35 | CON ---
DATE: PODIATRY CONSULT NOTE This is a podiatry consult note for Dr. Desai. SUBJECTIVE: The male patient was seen at bedside for diabetic fungal foot evaluation. The patient had no complaints or complications. He has no pedal complaints aside from general appearance of toenails and feet. The patient was drowsy at the time of evaluation and was not very verbal, although to answer interview questions. The patient had no complaints of acute overnight events, and denies history of nausea, vomiting, fevers, chills, chest pain, and shortness of breath. OBJECTIVE: GENERAL APPEARANCE: The patient is alert, drowsy, though oriented. The patient is in no acute distress. Nontoxic and appears well. LOWER EXTREMITY FOCUSED PHYSICAL EXAM: VASCULAR: The patient's dorsalis pedis and posterior tibial pulses bilaterally are weakly palpable, graded 1/4. The patient's capillary refill x2 digits was delayed less than 5 seconds. The patient's temperature runs warmth and cold from proximal leg to digital toes. DERMATOLOGICAL: The patient's nails are normotrophic, slightly elongated but still at hygienic length. Nails are sturdy, non-brittle, non-discolored. SKIN: The patient's skin in forefoot is slightly moist to touch. No interdigital macerations present in all interspaces. The patient has no hyperpigmentations. No open wounds. No portals of entry. The patient is known to have right plantar medial hallux hyperkeratotic lesion, possibly 1 cm in length. NEUROLOGICAL: The patient's perceptive sensation is grossly diminished. Babinski's test is negative bilaterally. MUSCULOSKELETAL: No gross deformities appreciated. Pedal muscle strength greater than 5/5 in all four major muscle groups of lower leg and feet bilaterally. Bilateral abductor hallux deformity noted. No significant ankle or pedal joint range of motion restrictions. ASSESSMENT: Right foot diabetic nail evaluation with extensive tinea pedis. PLAN: The patient was seen and evaluated. Current labs and vitals reviewed. Discussed in detail with the attending Dr. Desai who endorsed the following plan. The patient's pedal presentation is stable. No need for significant intervention. The patient prescribed ketoconazole 2% topical cream for application to feet and legs bilaterally. Discussed with the patient to avoid excess moisturization and to dry feet well after shower with focus of drying interdigital spaces to avoid maceration and wound development. The patient is stable from Podiatry standpoint. Danisha Land DPM [place]TD[place]
[2017-10-08 06:42] LABS: BASO # 0.1 K/uL (0.0-0.2); BASO % 0.6 % (0.0-2.0); EOS # 0.9 K/uL (0.0-0.7); EOS % 6.9 % (0.0-4.0); HEMOGLOBIN 10.2 g/dL (12.0-18.0); LYMPH # 0.9 K/uL (1.0-4.3); LYMPH % 7.1 % (20.0-40.0); MEAN CELL VOLUME 85.8 fL (80.0-94.0); MEAN CORPUSCULAR HEMOGLOBIN 29.5 pg (27.0-31.0); MEAN CORPUSCULAR HGB CONC 34.4 g/dL (33.0-37.0); MEAN PLATELET VOLUME 6.5 fL (7.2-11.7); MONO # 1.7 K/uL (0.0-0.8); MONO % 13.5 % (0.0-10.0); NEUT # 9.2 K/uL (1.8-7.0); NEUT % 71.9 % (50.0-75.0); PLATELET COUNT 478 K/uL (130-400); RBC 3.46 Mil/uL (4.40-5.90); WHITE BLOOD COUNT 12.8 K/uL (4.8-10.8)
[2017-10-08 06:51] LABS: VANCOMYCIN TROUGH 12.5 ug/mL (5.0-10.0)
[2017-10-08 07:01] LABS: ALB/GLOB RATIO 0.8 (1.0-2.1); ALBUMIN 2.9 g/dL (3.5-5.0); ALT/SGPT 18 U/L (21-72); AST/SGOT 43 U/L (17-59); BLOOD UREA NITROGEN 8 mg/dL (9-20); GFR AFRICAN-AMERICAN > 60; GFR NON-AFRICAN AMERICAN > 60
[2017-10-08 07:27] LABS: HIV 1&2 ANTIBODY NEGATIVE (NEGATIVE)
[2017-10-08 08:10] LABS: HEPATITIS B SURFACE AG Negative (NEGATIVE)
[2017-10-08 08:16] LABS: HEPATITIS A IGM NEGATIVE (NEGATIVE); HEPATITIS B CORE AB NEGATIVE (NEGATIVE)
[2017-10-08 08:28] LABS: HEPATITIS C ANTIBODY NEGATIVE (NEGATIVE)
[2017-10-08 10:28] LABS: BANDS 2 % (0-2); EOSINOPHIL 8 % (0-4); LYMPHOCYTE 10 % (20-40); MONOCYTE 10 % (0-10); NEUTROPHIL 69 % (50-75); PLATELET ESTIMATE SLIGHTLY INCREASED (NORMAL); REACTIVE LYMPHOCYTES 1 % (0-0); TOTAL CELLS COUNTED 100
[2017-10-08 10:29] LABS: ANISOCYTOSIS SLIGHT; TOXIC GRANULATION PRESENT
[2017-10-08] MEDS: Clotrimazole 1% Cream(30 gm) TOP SCH ×2 (10:32→17:15)
[2017-10-08] MEDS: Multiple Vitamins Tab PO SCH (10:32)
--- NOTE | 2017-10-08 10:40 | CP.PCM.PN ---
Subjective - Date & Time of Evaluation Date of Evaluation: 10/08/17 Time of Evaluation: 10:40 - Subjective Subjective: Progress note dictated #[id number] Objective - Vital Signs/Intake and Output Vital Signs (last 24 hours): Temp Pulse Resp BP Pulse Ox 98.4 F 53 L 18 167/98 H 98 10/08/17 08:11 10/08/17 08:11 10/08/17 08:11 10/08/17 08:11 10/08/17 08:11 Intake and Output: 10/08/17 10/08/17 06:59 18:59 Intake Total 700 Output Total 600 Balance 100 - Medications Medications: Current Medications Acetaminophen (Tylenol 325mg Tab) 650 mg PO Q6 PRN PRN Reason: Pain, Mild (1-3) Last Admin: 10/06/17 10:37 Dose: 650 mg Ciprofloxacin (Ciloxan 0.3% Ophth Soln) 1 drop OU Q8H [facility] Last Admin: 10/08/17 09:12 Dose: 1 drop Clotrimazole (Lotrimin 1%) 0 gm TOP BID [facility] Last Admin: 10/08/17 10:32 Dose: 1 applic Folic Acid (Folic Acid) 1 mg PO DAILY [facility] Last Admin: 10/08/17 10:33 Dose: 1 mg Vancomycin/Sodium Chloride (Vancomycin 1 Gm/Ns 200 Ml) 1 gm in 200 mls @ 166.6 mls/hr IVPB Q12H [facility] Stop: 10/12/17 12:01 Last Admin: 10/08/17 00:50 Dose: 166.6 mls/hr Ketoconazole (Nizoral) 5 gm TOP BID [facility] Last Admin: 10/08/17 10:32 Dose: 5 gm Lorazepam (Ativan) 1 mg IVP Q4H PRN PRN Reason: Symptoms of alcohol withdrawl Last Admin: 10/05/17 06:37 Dose: 1 mg Multivitamins (Hexavitamin) 1 tab PO DAILY [facility] Last Admin: 10/08/17 10:32 Dose: 1 tab Pantoprazole Sodium (Protonix Inj) 40 mg IVP Q12H [facility] Last Admin: 10/08/17 06:25 Dose: 40 mg Thiamine HCl (Vitamin B1 Tab) 100 mg PO DAILY [facility] Last Admin: 10/08/17 10:32 Dose: 100 mg - Labs Labs: 10/08/17 06:31 10/08/17 06:30 PT 14.1 SECONDS (9.7-12.2) H 10/02/17 20:24 INR 1.3 10/02/17 20:24 APTT 25 SECONDS (21-34) 10/02/17 20:24
[2017-10-08] MEDS: Pantoprazole 40 mg EC Tab PO SCH (17:16)
--- NOTE | 2017-10-08 18:17 | CP.PCM.PN ---
Subjective - Date & Time of Evaluation Date of Evaluation: 10/08/17 Time of Evaluation: 10:00 - Subjective Subjective: MSSA in blood possible skin source? echo pending cont IV Ancef 2g q8h min 14 days Objective - Vital Signs/Intake and Output Vital Signs (last 24 hours): Temp Pulse Resp BP Pulse Ox 98.4 F 96 H 18 167/98 H 98 10/08/17 08:11 10/08/17 14:00 10/08/17 08:11 10/08/17 08:11 10/08/17 08:11 Intake and Output: 10/08/17 10/08/17 06:59 18:59 Intake Total 700 Output Total 600 Balance 100 - Medications Medications: Current Medications Acetaminophen (Tylenol 325mg Tab) 650 mg PO Q6 PRN PRN Reason: Pain, Mild (1-3) Last Admin: 10/06/17 10:37 Dose: 650 mg Ciprofloxacin (Ciloxan 0.3% Ophth Soln) 1 drop OU Q8H [facility] Last Admin: 10/08/17 17:15 Dose: 1 drop Clotrimazole (Lotrimin 1%) 0 gm TOP BID [facility] Last Admin: 10/08/17 17:15 Dose: 1 applic Folic Acid (Folic Acid) 1 mg PO DAILY [facility] Last Admin: 10/08/17 10:33 Dose: 1 mg Ketoconazole (Nizoral) 5 gm TOP BID [facility] Last Admin: 10/08/17 17:15 Dose: 5 gm Lorazepam (Ativan) 1 mg IVP Q4H PRN PRN Reason: Symptoms of alcohol withdrawl Last Admin: 10/05/17 06:37 Dose: 1 mg Multivitamins (Hexavitamin) 1 tab PO DAILY [facility] Last Admin: 10/08/17 10:32 Dose: 1 tab Pantoprazole Sodium (Protonix Ec Tab) 40 mg PO Q12H [facility] Last Admin: 10/08/17 17:16 Dose: 40 mg Thiamine HCl (Vitamin B1 Tab) 100 mg PO DAILY [facility] Last Admin: 10/08/17 10:32 Dose: 100 mg - Labs Labs: 10/08/17 06:31 10/08/17 06:30 PT 14.1 SECONDS (9.7-12.2) H 10/02/17 20:24 INR 1.3 10/02/17 20:24 APTT 25 SECONDS (21-34) 10/02/17 20:24 - Constitutional Appears: Non-toxic, Chronically Ill - Head Exam Head Exam: NORMOCEPHALIC - Eye Exam Eye Exam: PERRL - ENT Exam ENT Exam: Mucous Membranes Dry - Cardiovascular Exam Cardiovascular Exam: REGULAR RHYTHM - GI/Abdominal Exam GI & Abdominal Exam: Distended - Rectal Exam Rectal Exam: Deferred - Exam Exam: NORMAL INSPECTION - Extremities Exam Extremities Exam: Full ROM Assessment and Plan (1) Alcohol abuse Status: Acute (2) Anemia Status: Acute (3) Conjunctivitis Status: Acute (4) Leukocytosis Status: Acute (5) Severe anemia Status: Acute (6) Skin disease, fungal Status: Acute (7) Alcohol withdrawal Status: Acute
[2017-10-08] MEDS: ceFAZolin IV 2 gm in Dextrose 2 GM/50 ML BAG IVPB SCH (19:51)
--- NOTE | 2017-10-08 21:06 | PN ---
DATE: 10/08/2017. SUBJECTIVE: The patient was seen and examined at bedside. The patient is still complaining of not feeling well. Generalized body aches and fatigue. PHYSICAL EXAMINATION: GENERAL: Middle-aged male lying in bed, in no acute distress. VITAL SIGNS: Blood pressure 122/78, pulse 94, respirations 18, temperature 98 degrees Fahrenheit, and O2 sat is 98% on room air. HEENT: Pupils equal, round and reacting to light and accommodation. Extraocular muscles are intact. Conjunctival erythema decreasing. Less mucopurulent discharge. No oral thrush. NECK: Supple. No JVD. LUNGS: Bilateral vesicular breath sounds. No wheezing. No rhonchi. CVS: S1 and S2 present and regular. ABDOMEN: Soft and nontender. Bowel sounds are present. No guarding. No rigidity. No rebound tenderness noted. INSTRUMENT AND ELECTRICAL TECHNICIAN: Alert, awake, and oriented x3. No focal deficits noted. EXTREMITIES: No edema. Multiple scratch naranjo all over the body. MEDICATIONS: Includes Tylenol as needed, ciprofloxacin eye drops, folic acid 1 mg daily, ketoconazole topical twice a day, Ativan 1 mg IV push q. 4 hours, multivitamin, Protonix 40 mg IV q. 12 hours, thiamine 100 mg daily, vancomycin 1 gm IV q. 12 hours. LABORATORY DATA: WBC 12.8, hemoglobin 10.2, hematocrit 29.7, and platelets 478,000. Sodium 127, potassium 4.4, chloride 90, bicarb 27, BUN 8, creatinine 0.8. glucose 110, calcium 8.0, ALT 18, alkaline phosphatase 81, vancomycin trough 12.5. HIV negative. Hepatitis serology negative. Blood cultures sensitive staph aureus, methicillin-sensitive. Repeat cultures pending. Echocardiogram done, results pending. ASSESSMENT AND PLAN: Middle-aged male with history of ethyl alcohol abuse, intoxication, body lice, multiple electrolyte abnormalities, hyponatremia, anemia, status post PRBC transfusion, status post EGD, consistent with gastritis. Iron deficiency and B12 deficiency anemia. Staphylococcus aureus bacteremia, sensitive to methicillin, on vancomycin. Repeat cultures pending. Echo pending. We will continue with vancomycin 1 gm IV q. 12 hours. Continue with thiamine, folate, multivitamin. Potassium is better. Magnesium results pending. We will continue with Protonix 40 mg IV q. 12 hours. Continue with eye drops. Podiatry consult appreciated. ID input appreciated. We will follow up with echo results. Daina Wooten MD
--- NOTE | 2017-10-08 21:07 | CP.PCM.PN ---
Subjective - Date & Time of Evaluation Date of Evaluation: 10/08/17 Time of Evaluation: 19:30 - Subjective Subjective: Doesnt feel well Objective - Vital Signs/Intake and Output Vital Signs (last 24 hours): Temp Pulse Resp BP Pulse Ox 98.4 F 96 H 18 167/98 H 98 10/08/17 08:11 10/08/17 14:00 10/08/17 08:11 10/08/17 08:11 10/08/17 08:11 - Medications Medications: Current Medications Acetaminophen (Tylenol 325mg Tab) 650 mg PO Q6 PRN PRN Reason: Pain, Mild (1-3) Last Admin: 10/06/17 10:37 Dose: 650 mg Ciprofloxacin (Ciloxan 0.3% Oph Soln) 1 drop OU Q8H [facility] Last Admin: 10/08/17 17:15 Dose: 1 drop Clotrimazole (Lotrimin 1%) 0 gm TOP BID [facility] Last Admin: 10/08/17 17:15 Dose: 1 applic Folic Acid (Folic Acid) 1 mg PO DAILY [facility] Last Admin: 10/08/17 10:33 Dose: 1 mg Cefazolin Sodium/Dextrose (Ancef Iv 2 Gm Duplex) 2 gm in 50 mls @ 100 mls/hr IVPB Q8H [facility] Last Admin: 10/08/17 19:51 Dose: 100 mls/hr Ketoconazole (Nizoral) 5 gm TOP BID [facility] Last Admin: 10/08/17 17:15 Dose: 5 gm Lorazepam (Ativan) 1 mg IVP Q4H PRN PRN Reason: Symptoms of alcohol withdrawl Last Admin: 10/05/17 06:37 Dose: 1 mg Multivitamins (Hexavitamin) 1 tab PO DAILY [facility] Last Admin: 10/08/17 10:32 Dose: 1 tab Pantoprazole Sodium (Protonix Ec Tab) 40 mg PO Q12H [facility] Last Admin: 10/08/17 17:16 Dose: 40 mg Thiamine HCl (Vitamin B1 Tab) 100 mg PO DAILY [facility] Last Admin: 10/08/17 10:32 Dose: 100 mg - Labs Labs: 10/08/17 06:31 10/08/17 06:30 PT 14.1 SECONDS (9.7-12.2) H 10/02/17 20:24 INR 1.3 10/02/17 20:24 APTT 25 SECONDS (21-34) 10/02/17 20:24 - Head Exam Head Exam: ATRAUMATIC - Eye Exam Eye Exam: Normal appearance - ENT Exam ENT Exam: Mucous Membranes Dry - Respiratory Exam Respiratory Exam: NORMAL BREATHING PATTERN - Cardiovascular Exam Cardiovascular Exam: +S1, +S2 - GI/Abdominal Exam GI & Abdominal Exam: Normal Bowel Sounds Assessment and Plan (1) Anemia Assessment & Plan: iron and b12 deficiency s/p supplementation H/H improved Status: Acute (2) Leukocytosis Assessment & Plan: on antibiotics Status: Acute
--- NOTE | 2017-10-08 22:46 | CARD ---
APPROVED REPORT EXAM: Two-dimensional and M-mode echocardiogram with Doppler and color Doppler. INDICATION Infection:Rule out subacute bacterial endocarditis Palpitations 2D DIMENSIONS IVSd0.9 (0.7-1.1cm)LVDd5.4 (3.9-5.9cm) PWd0.8 (0.7-1.1cm)LVDs4.4 (2.5-4.0cm) FS (%) 17.2 %LVEF (%)35.5 (>50%) M-Mode DIMENSIONS Left Atrium (MM)3.19 (2.5-4.0cm)Aortic Root3.45 (2.2-3.7cm) Aortic Cusp Exc.1.77 (1.5-2.0cm) Mitral Valve MV E Kunecpyf22.1cm/sMV A Ahnbsoiq87.2cm/sE/A ratio0.5 TDI E/Lateral E'0.0E/Medial E'0.0 Tricuspid Valve TR Peak [id number]/sTR Peak Gr.[id number] LEFT VENTRICLE The left ventricle is normal size. There is normal left ventricular wall thickness. The systolic function is mildly to moderately impaired. There is global hypokinesis of the left ventricle. Transmitral Doppler flow pattern is abnormal. RIGHT VENTRICLE The right ventricle is normal size. ATRIA The left atrium size is normal. The right atrium size is normal. AORTIC VALVE The aortic valve is normal in structure. MITRAL VALVE Mitral regurgitation is trace. TRICUSPID VALVE There is mild tricuspid regurgitation. <Conclusion> Mild to moderate LV systolic dysfunction. Diastolic dysfunction. Trace MR. Mild TR.
[2017-10-09] MEDS: Ciprofloxacin 0.3% OPTH SOLN OU SCH ×3 (01:58→17:54)
[2017-10-09] MEDS: ceFAZolin IV 2 gm in Dextrose 2 GM/50 ML BAG IVPB SCH ×3 (02:00→18:45)
[2017-10-09] MEDS: Pantoprazole 40 mg EC Tab PO SCH ×2 (06:10→17:53)
[2017-10-09 08:28] LABS: BASO # 0.1 K/uL (0.0-0.2); BASO % 0.9 % (0.0-2.0); EOS # 0.6 K/uL (0.0-0.7); EOS % 5.3 % (0.0-4.0); HEMOGLOBIN 10.4 g/dL (12.0-18.0); LYMPH # 1.2 K/uL (1.0-4.3); LYMPH % 10.2 % (20.0-40.0); MEAN CELL VOLUME 85.8 fL (80.0-94.0); MEAN CORPUSCULAR HEMOGLOBIN 30.7 pg (27.0-31.0); MEAN CORPUSCULAR HGB CONC 35.7 g/dL (33.0-37.0); MEAN PLATELET VOLUME 6.9 fL (7.2-11.7); MONO # 1.4 K/uL (0.0-0.8); MONO % 12.4 % (0.0-10.0); NEUT # 8.1 K/uL (1.8-7.0); NEUT % 71.2 % (50.0-75.0); RBC 3.4 Mil/uL (4.40-5.90); RED CELL DISTRIBUTION WIDTH 15.2 % (11.5-14.5); WHITE BLOOD COUNT 11.4 K/uL (4.8-10.8)
[2017-10-09 08:51] LABS: ALB/GLOB RATIO 0.8 (1.0-2.1); ALBUMIN 3.2 g/dL (3.5-5.0); ALT/SGPT 14 U/L (21-72); AST/SGOT 34 U/L (17-59); BLOOD UREA NITROGEN 10 mg/dL (9-20); GFR AFRICAN-AMERICAN > 60; GFR NON-AFRICAN AMERICAN > 60
[2017-10-09] MEDS: Multiple Vitamins Tab PO SCH (10:35)
[2017-10-09] MEDS: Clotrimazole 1% Cream(30 gm) TOP SCH ×2 (10:36→17:55)
--- NOTE | 2017-10-09 14:57 | CP.PCM.PN ---
Subjective - Date & Time of Evaluation Date of Evaluation: 10/09/17 Time of Evaluation: 14:40 - Subjective Subjective: Progress note dictated #[id number] Objective - Vital Signs/Intake and Output Vital Signs (last 24 hours): Temp Pulse Resp BP Pulse Ox 98.1 F 98 H 20 101/65 99 10/09/17 00:10 10/09/17 07:54 10/09/17 00:10 10/09/17 00:10 10/09/17 00:10 Intake and Output: 10/09/17 10/09/17 06:59 18:59 Intake Total 450 Output Total 400 Balance 50 - Medications Medications: Current Medications Acetaminophen (Tylenol 325mg Tab) 650 mg PO Q6 PRN PRN Reason: Pain, Mild (1-3) Last Admin: 10/06/17 10:37 Dose: 650 mg Ciprofloxacin (Ciloxan 0.3% Ophth Soln) 1 drop OU Q8H [facility] Last Admin: 10/09/17 10:35 Dose: 1 drop Clotrimazole (Lotrimin 1%) 0 gm TOP BID [facility] Last Admin: 10/09/17 10:36 Dose: 1 applic Folic Acid (Folic Acid) 1 mg PO DAILY [facility] Last Admin: 10/09/17 10:35 Dose: 1 mg Cefazolin Sodium/Dextrose (Ancef Iv 2 Gm Duplex) 2 gm in 50 mls @ 100 mls/hr IVPB Q8H [facility] Last Admin: 10/09/17 10:35 Dose: 100 mls/hr Ketoconazole (Nizoral) 5 gm TOP BID [facility] Last Admin: 10/09/17 10:36 Dose: 5 gm Lorazepam (Ativan) 1 mg IVP Q4H PRN PRN Reason: Symptoms of alcohol withdrawl Last Admin: 10/05/17 06:37 Dose: 1 mg Multivitamins (Hexavitamin) 1 tab PO DAILY [facility] Last Admin: 10/09/17 10:35 Dose: 1 tab Pantoprazole Sodium (Protonix Ec Tab) 40 mg PO Q12H [facility] Last Admin: 10/09/17 06:10 Dose: 40 mg Thiamine HCl (Vitamin B1 Tab) 100 mg PO DAILY [facility] Last Admin: 10/09/17 10:35 Dose: 100 mg - Labs Labs: 10/09/17 08:13 10/09/17 08:13 PT 14.1 SECONDS (9.7-12.2) H 10/02/17 20:24 INR 1.3 10/02/17 20:24 APTT 25 SECONDS (21-34) 10/02/17 20:24
--- NOTE | 2017-10-09 17:32 | CP.PCM.PN ---
Subjective - Date & Time of Evaluation Date of Evaluation: 10/09/17 Time of Evaluation: 15:30 - Subjective Subjective: Feels weak Objective - Vital Signs/Intake and Output Vital Signs (last 24 hours): Temp Pulse Resp BP Pulse Ox 97.7 F 115 H 20 107/62 96 10/09/17 17:02 10/09/17 17:02 10/09/17 17:02 10/09/17 17:02 10/09/17 17:02 Intake and Output: 10/09/17 10/09/17 06:59 18:59 Intake Total 450 580 Output Total 400 Balance 50 580 - Medications Medications: Current Medications Acetaminophen (Tylenol 325mg Tab) 650 mg PO Q6 PRN PRN Reason: Pain, Mild (1-3) Last Admin: 10/06/17 10:37 Dose: 650 mg Ciprofloxacin (Ciloxan 0.3% Ophth Soln) 1 drop OU Q8H [facility] Last Admin: 10/09/17 10:35 Dose: 1 drop Clotrimazole (Lotrimin 1%) 0 gm TOP BID [facility] Last Admin: 10/09/17 10:36 Dose: 1 applic Folic Acid (Folic Acid) 1 mg PO DAILY [facility] Last Admin: 10/09/17 10:35 Dose: 1 mg Cefazolin Sodium/Dextrose (Ancef Iv 2 Gm Duplex) 2 gm in 50 mls @ 100 mls/hr IVPB Q8H [facility] Last Admin: 10/09/17 10:35 Dose: 100 mls/hr Ketoconazole (Nizoral) 5 gm TOP BID [facility] Last Admin: 10/09/17 10:36 Dose: 5 gm Lorazepam (Ativan) 1 mg IVP Q4H PRN PRN Reason: Symptoms of alcohol withdrawl Last Admin: 10/05/17 06:37 Dose: 1 mg Magnesium Oxide (Mag-Ox) 400 mg PO BID [facility] Multivitamins (Hexavitamin) 1 tab PO DAILY [facility] Last Admin: 10/09/17 10:35 Dose: 1 tab Pantoprazole Sodium (Protonix Ec Tab) 40 mg PO Q12H [facility] Last Admin: 10/09/17 06:10 Dose: 40 mg Thiamine HCl (Vitamin B1 Tab) 100 mg PO DAILY [facility] Last Admin: 10/09/17 10:35 Dose: 100 mg - Labs Labs: 10/09/17 08:13 10/09/17 08:13 PT 14.1 SECONDS (9.7-12.2) H 10/02/17 20:24 INR 1.3 10/02/17 20:24 APTT 25 SECONDS (21-34) 10/02/17 20:24 - Head Exam Head Exam: ATRAUMATIC - Eye Exam Eye Exam: Normal appearance - ENT Exam ENT Exam: Mucous Membranes Dry - Respiratory Exam Respiratory Exam: NORMAL BREATHING PATTERN - Cardiovascular Exam Cardiovascular Exam: +S1, +S2 - GI/Abdominal Exam GI & Abdominal Exam: Normal Bowel Sounds Assessment and Plan (1) Anemia Assessment & Plan: iron deficiency and B12 deficiency s/p supplementation H/H improved Status: Acute (2) Leukocytosis Assessment & Plan: resolving on antibiotics Status: Acute
[2017-10-09] MEDS: Magnesium Oxide 400 mg Tab UD PO SCH (17:53)
--- NOTE | 2017-10-09 19:29 | PN ---
DATE: 10/09/2017 SUBJECTIVE: The patient was seen and examined at bedside. The patient is still complaining of generalized fatigue and weakness, complaining of incontinence of bowel and bladder, claiming that he is not able to make to the bathroom without accident. Denies any other neurologic symptoms. PHYSICAL EXAMINATION: GENERAL: Middle-aged male, lying in bed, in no acute distress. VITAL SIGNS: Blood pressure 101/65, pulse 99, respirations 20, temperature 98.1 degrees Fahrenheit, and O2 saturations 99% on room air. HEENT: Pupils are equal, round and reactive to light and accommodation. Extraocular muscles are intact. Conjunctival erythema decreasing. Discharge decreasing. No oral thrush. No oropharyngeal congestion. NECK: Supple. No JVD. LUNGS: Bilateral vesicular breath sounds. No wheezing. No rhonchi. CARDIOPULMONARY: S1 and S2 present, regular. ABDOMEN: Soft. Nontender. Bowel sounds present. No guarding. No rigidity. No rebound tenderness noted. SALES SUPPORT COORDINATOR: Alert, awake, oriented x3. No focal deficits noted. EXTREMITIES: No edema. Multiple scratch naranjo noted. MEDICATIONS: Include Tylenol as needed, Ancef 2 gm IV q. 8 hours, ciprofloxacin eye drops, Lotrimin cream, folic acid, Nizoral topical cream, Ativan as needed, multivitamin one tablet daily, Protonix 40 mg p.o. q.12 hours, thiamine 100 mg p.o. daily. LABORATORY DATA: From this morning, WBC 11.4, hemoglobin 10.4, hematocrit 29.2, and platelets 519. Sodium 127, potassium 4.3, chloride 91, bicarbonate 28, BUN 10, creatinine 0.7, glucose 90, calcium 9.0, magnesium 1.6. AST 34, ALT 14, alkaline phosphatase 79, total protein 7.1, albumin 3.2, vancomycin trough 15.7. Echocardiogram shows [id number] LV systolic function, diastolic dysfunction, trace MR, mild TR. Repeat blood cultures one set negative. ASSESSMENT AND PLAN: Middle-aged male with EtOH abuse, intoxication, anemia, status post blood transfusion, iron-deficiency and B12 deficiency anemia, status post esophagogastroduodenoscopy consistent with gastritis, multiple electrolyte abnormalities, persistent hyponatremia, Staphylococcus aureus bacteremia, negative for any vegetation on TTE. ID and Hematology input appreciated. Antibiotics changed to Ancef, ID recommending IV antibiotics for total of 2 weeks. Follow up with repeat cultures. Continue with other current therapy, social work specialist and discharge plan. Daina Wooten MD
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
[2017-10-10] MEDS: Ciprofloxacin 0.3% OPTH SOLN OU SCH ×2 (01:08→10:08)
[2017-10-10] MEDS: ceFAZolin IV 2 gm in Dextrose 2 GM/50 ML BAG IVPB SCH ×2 (03:51→10:08)
[2017-10-10] MEDS: Pantoprazole 40 mg EC Tab PO SCH ×2 (05:19→19:05)
[2017-10-10] MEDS ORDERED: Multivitamin With Minerals Tab PO SCH (08:00)
[2017-10-10 09:14] LABS: BLOOD UREA NITROGEN 13 mg/dL (9-20); CALCIUM 8.6 mg/dl (8.6-10.4); GFR AFRICAN-AMERICAN > 60; GFR NON-AFRICAN AMERICAN > 60; URIC ACID 5.1 mg/dL (3.5-8.5)
[2017-10-10 09:21] LABS: B-TYPE NATRIURETIC PEPTIDE 317 pg/mL (0-900)
[2017-10-10] MEDS: Magnesium Oxide 400 mg Tab UD PO SCH ×2 (10:07→19:05)
[2017-10-10] MEDS: Multiple Vitamins Tab PO SCH (10:08)
[2017-10-10] MEDS: Clotrimazole 1% Cream(30 gm) TOP SCH ×2 (10:09→19:06)
--- NOTE | 2017-10-10 11:25 | CP.PCM.PN ---
Subjective - Date & Time of Evaluation Date of Evaluation: 10/10/17 Time of Evaluation: 11:24 - Subjective Subjective: Follow up Nephrology Consultation: Assessment: Stable Hyponatremia likely due to chronic Etoh intake and low solute intake. chronic sys CHF Anemia, hypomagnesemia Chronic Etoh abuse MSSA Bacteremia Plan no need for hypertonic saline. avoid correction in serum Na > 6-8 meq/24 hrs pending UA, urine Na/osmol oral fluid restriction to 1200 mL/day supplement electrolytes as needed Glycemic control antibiotics as per ID Heme following for anemia management. iron supplement as MVI as ordered. CHF management as per primary team Further work up/management as per primary team Thanks for allowing me to participate in care of your patient. Will follow patient with you. Please call if any Qs Dr Yusuf Saleem Office: [phone] Chief Complaint; feels better HPI: Pt is a 62 M with hx of chronic Etoh abuse and smoker presented with complaints of eye discharge, feeling sick, found to have severe anemia and MSSA Bacteremia. Renal consult for Hyponatremia. pt feels sick but no SOB. not on psych meds or thiazide. denies drinking excess water ROS: Cardiovascular: No chest pain. Pulmonary: No shortness of breath Gastrointestinal: denies abdominal pain No nausea. No vomiting. Genitourinary: No pain while urinating. Denies blood in urine. All other negative Physical Examination: General Appearance: Comfortable, in no acute respiratory distress, co-operative . Vitals reviewed and noted as below Head; Atraumatic, normocephalic ENT: no ulcers no thrush. Tongue is midline. Oropharynx: no rash or ulcers. EYES: Pupils are equal, round and reactive to light accommodation. Eye muscles and extraocular movement intact. Sclera is anicteric. Neck; supple no lymphadenopathy, no thyromegaly or bruit Lungs: Normal respiratory rate/effort. Breath sounds bilateral equal and clear Heart: Normal rate. s1s2 normal. No rub or gallop. Extremities: no edema. No varicose veins Neurological: Patient is alert, awake and oriented to person, place and time. No focal deficit. Strength bilateral appropriate and equal Skin: Warm and dry. Normal turgor. No rash. Palpitation: Normal elasticity for age Abdomen: Abdomen is soft. Bowel sounds +. There is no abdominal tenderness, no guarding/rigidity no organomegaly Psych: limited insight and flat affect/mood MSK: no joint tenderness or swelling. Digits and nails normal, no deformity : kidney or bladder not palpable Labs/imaging reviewed. Past medical history, past surgical history, family history, social history, allergy reviewed and noted as below Family hx: no hx of CKD. Rest non-contributory echo: mild to moderate reduced LVEF Objective - Vital Signs/Intake and Output Vital Signs (last 24 hours): Temp Pulse Resp BP Pulse Ox 98.2 F 105 H 20 103/61 100 10/10/17 07:25 10/10/17 07:25 10/10/17 07:25 10/10/17 07:25 10/10/17 07:25 Intake and Output: 10/10/17 10/10/17 06:59 18:59 Output Total 200 Balance -200 - Medications Medications: Current Medications Acetaminophen (Tylenol 325mg Tab) 650 mg PO Q6 PRN PRN Reason: Pain, Mild (1-3) Last Admin: 10/06/17 10:37 Dose: 650 mg Ciprofloxacin (Ciloxan 0.3% Oph Soln) 1 drop OU Q8H [facility] Last Admin: 10/10/17 10:08 Dose: 1 drop Clotrimazole (Lotrimin 1%) 0 gm TOP BID [facility] Last Admin: 10/10/17 10:09 Dose: 1 applic Ferrous Gluconate (Fergon) 324 mg PO TID [facility] Last Admin: 10/10/17 10:07 Dose: 324 mg Folic Acid (Folic Acid) 1 mg PO DAILY [facility] Last Admin: 10/10/17 10:08 Dose: 1 mg Cefazolin Sodium/Dextrose (Ancef Iv 2 Gm Duplex) 2 gm in 50 mls @ 100 mls/hr IVPB Q8H [facility] Last Admin: 10/10/17 10:08 Dose: 100 mls/hr Ketoconazole (Nizoral) 5 gm TOP BID [facility] Last Admin: 10/10/17 10:09 Dose: 1 applic Lorazepam (Ativan) 1 mg IVP Q4H PRN PRN Reason: Symptoms of alcohol withdrawl Last Admin: 10/05/17 06:37 Dose: 1 mg Magnesium Oxide (Mag-Ox) 400 mg PO BID [facility] Last Admin: 10/10/17 10:07 Dose: 400 mg Multivitamins (Hexavitamin) 1 tab PO DAILY [facility] Last Admin: 10/10/17 10:08 Dose: 1 tab Pantoprazole Sodium (Protonix Ec Tab) 40 mg PO Q12H [facility] Last Admin: 10/10/17 05:19 Dose: 40 mg Thiamine HCl (Vitamin B1 Tab) 100 mg PO DAILY [facility] Last Admin: 10/10/17 10:08 Dose: 100 mg - Labs Labs: 10/09/17 08:13 10/10/17 08:24 PT 14.1 SECONDS (9.7-12.2) H 10/02/17 20:24 INR 1.3 10/02/17 20:24 APTT 25 SECONDS (21-34) 10/02/17 20:24
[2017-10-10 12:30] LABS: SQUAMOUS EPITHIAL < 1 /hpf (0-5); URINE BILIRUBIN NEGATIVE (NEGATIVE); URINE BLOOD NEGATIVE (NEGATIVE); URINE CLARITY Clear (Clear); URINE COLOR Yellow (YELLOW); URINE GLUCOSE (UA) 1+ mg/dL (Normal); URINE LEUKOCYTE ESTERASE NEG Leu/uL (Negative); URINE NITRATE NEGATIVE (NEGATIVE); URINE PROTEIN NEGATIVE (NEGATIVE); URINE UROBILINOGEN NORMAL mg/dL (0.2-1.0)
[2017-10-10 12:34] LABS: OSMOLALITY,URINE 554 mosm/kg (300-1000)
--- NOTE | 2017-10-10 15:25 | CP.PCM.PN ---
Subjective - Date & Time of Evaluation Date of Evaluation: 10/10/17 Time of Evaluation: 15:24 - Subjective Subjective: pt is seen and examined, progress note is dictated #[id number] Objective - Vital Signs/Intake and Output Vital Signs (last 24 hours): Temp Pulse Resp BP Pulse Ox 98.2 F 101 H 20 103/61 100 10/10/17 07:25 10/10/17 07:34 10/10/17 07:25 10/10/17 07:25 10/10/17 07:25 Intake and Output: 10/10/17 10/10/17 06:59 18:59 Output Total 200 Balance -200 - Medications Medications: Current Medications Acetaminophen (Tylenol 325mg Tab) 650 mg PO Q6 PRN PRN Reason: Pain, Mild (1-3) Last Admin: 10/06/17 10:37 Dose: 650 mg Ciprofloxacin (Ciloxan 0.3% Ophth Soln) 1 drop OU Q8H [facility] Last Admin: 10/10/17 10:08 Dose: 1 drop Clotrimazole (Lotrimin 1%) 0 gm TOP BID [facility] Last Admin: 10/10/17 10:09 Dose: 1 applic Ferrous Gluconate (Fergon) 324 mg PO TID [facility] Last Admin: 10/10/17 14:33 Dose: 324 mg Folic Acid (Folic Acid) 1 mg PO DAILY [facility] Last Admin: 10/10/17 10:08 Dose: 1 mg Cefazolin Sodium/Dextrose (Ancef Iv 2 Gm Duplex) 2 gm in 50 mls @ 100 mls/hr IVPB Q8H [facility] Last Admin: 10/10/17 10:08 Dose: 100 mls/hr Ketoconazole (Nizoral) 5 gm TOP BID [facility] Last Admin: 10/10/17 10:09 Dose: 1 applic Lorazepam (Ativan) 1 mg IVP Q4H PRN PRN Reason: Symptoms of alcohol withdrawl Last Admin: 10/05/17 06:37 Dose: 1 mg Magnesium Oxide (Mag-Ox) 400 mg PO BID [facility] Last Admin: 10/10/17 10:07 Dose: 400 mg Multivitamins (Hexavitamin) 1 tab PO DAILY [facility] Last Admin: 10/10/17 10:08 Dose: 1 tab Pantoprazole Sodium (Protonix Ec Tab) 40 mg PO Q12H [facility] Last Admin: 10/10/17 05:19 Dose: 40 mg Thiamine HCl (Vitamin B1 Tab) 100 mg PO DAILY [facility] Last Admin: 10/10/17 10:08 Dose: 100 mg - Labs Labs: 10/09/17 08:13 10/10/17 08:24 PT 14.1 SECONDS (9.7-12.2) H 10/02/17 20:24 INR 1.3 10/02/17 20:24 APTT 25 SECONDS (21-34) 10/02/17 20:24
[2017-10-10] MEDS ORDERED: Ferric Sodium Gluconat Complex 62.5 mg/5 ml Vial IVPB SCH (15:30)
--- NOTE | 2017-10-10 16:06 | CP.PCM.PN ---
Subjective - Date & Time of Evaluation Date of Evaluation: 10/10/17 Time of Evaluation: 09:00 - Subjective Subjective: repeat cultures neg so far iv rx in progress Objective - Vital Signs/Intake and Output Vital Signs (last 24 hours): Temp Pulse Resp BP Pulse Ox 98.2 F 101 H 20 103/61 100 10/10/17 07:25 10/10/17 07:34 10/10/17 07:25 10/10/17 07:25 10/10/17 07:25 Intake and Output: 10/10/17 10/10/17 06:59 18:59 Output Total 200 Balance -200 - Medications Medications: Current Medications Acetaminophen (Tylenol 325mg Tab) 650 mg PO Q6 PRN PRN Reason: Pain, Mild (1-3) Last Admin: 10/10/17 15:26 Dose: 650 mg Ciprofloxacin (Ciloxan 0.3% Ophth Soln) 1 drop OU Q8H [facility] Last Admin: 10/10/17 10:08 Dose: 1 drop Clotrimazole (Lotrimin 1%) 0 gm TOP BID [facility] Last Admin: 10/10/17 10:09 Dose: 1 applic Ferrous Gluconate (Fergon) 324 mg PO TID [facility] Last Admin: 10/10/17 14:33 Dose: 324 mg Folic Acid (Folic Acid) 1 mg PO DAILY [facility] Last Admin: 10/10/17 10:08 Dose: 1 mg Cefazolin Sodium/Dextrose (Ancef Iv 2 Gm Duplex) 2 gm in 50 mls @ 100 mls/hr IVPB Q8H [facility] Last Admin: 10/10/17 10:08 Dose: 100 mls/hr Ketoconazole (Nizoral) 5 gm TOP BID [facility] Last Admin: 10/10/17 10:09 Dose: 1 applic Lorazepam (Ativan) 1 mg IVP Q4H PRN PRN Reason: Symptoms of alcohol withdrawl Last Admin: 10/05/17 06:37 Dose: 1 mg Magnesium Oxide (Mag-Ox) 400 mg PO BID [facility] Last Admin: 10/10/17 10:07 Dose: 400 mg Multivitamins (Hexavitamin) 1 tab PO DAILY [facility] Last Admin: 10/10/17 10:08 Dose: 1 tab Pantoprazole Sodium (Protonix Ec Tab) 40 mg PO Q12H [facility] Last Admin: 10/10/17 05:19 Dose: 40 mg Thiamine HCl (Vitamin B1 Tab) 100 mg PO DAILY [facility] Last Admin: 10/10/17 10:08 Dose: 100 mg - Labs Labs: 10/09/17 08:13 10/10/17 08:24 PT 14.1 SECONDS (9.7-12.2) H 10/02/17 20:24 INR 1.3 10/02/17 20:24 APTT 25 SECONDS (21-34) 10/02/17 20:24 - Constitutional Appears: Non-toxic, Chronically Ill - Head Exam Head Exam: NORMOCEPHALIC - Eye Exam Eye Exam: PERRL - ENT Exam ENT Exam: Mucous Membranes Dry - Neck Exam Neck Exam: absent: Lymphadenopathy - Respiratory Exam Respiratory Exam: Decreased Breath Sounds - Cardiovascular Exam Cardiovascular Exam: REGULAR RHYTHM - GI/Abdominal Exam GI & Abdominal Exam: Distended, Soft Assessment and Plan (1) Alcohol abuse Status: Acute (2) Anemia Status: Acute (3) Conjunctivitis Status: Acute (4) Leukocytosis Status: Acute (5) Severe anemia Status: Acute (6) Skin disease, fungal Status: Acute (7) Alcohol withdrawal Status: Acute
[2017-10-11] MEDS: Ciprofloxacin 0.3% OPTH SOLN OU SCH ×3 (02:32→17:44)
[2017-10-11] MEDS: ceFAZolin IV 2 gm in Dextrose 2 GM/50 ML BAG IVPB SCH ×3 (02:32→18:21)
--- NOTE | 2017-10-11 04:28 | PN ---
DATE:10/10/2017 The patient is seen and examined. DICTATED FOR: Dr. Daina Wooten MD HISTORY OF PRESENT ILLNESS: Mr. Rodriguez is a 62 years old elderly male with no known past medical history other than drinking alcohol 3 to 4 pints a day for the last few years. He is homeless and living in a jail, was admitted with bilateral purulent eye drainage for the last 1 week and decreased p.o. intake and generalized fatigue and weight loss. The patient is being treated for alcohol intoxication and symptomatic anemia and conjunctivitis. The patient is not in acute distress. Complains of feeling thirsty. Denies any chest pain or palpitation. Denies any fever or cough. No abdominal pain. No nausea, vomiting, diarrhea. PHYSICAL EXAMINATION: VITAL SIGNS: As follows: Blood pressure one 103/61, pulse 105, respirations 20, temperature 98.2, saturation 100%. His repeat blood pressure this afternoon 131/82, pulse 104, respirations 20, temperature 99.3, saturation 100%. Height 5 feet 8 inches and weight is 130 pounds. GENERA: Mr. Rodriguez is a 62 years elderly male, moderately built, moderate nourished, not in acute distress. HEENT: Pupils normal and reactive to light and accommodation. Conjunctivae pink. Sclerae anicteric. Tongue is moist. Trachea is midline. LUNGS: Symmetric on both sides. Bilateral breath sounds present. Clear on auscultation. CVS: [place] at the fifth intercostal space, midclavicular line, half inch medial to. S1, S2 audible. No murmur or gallop. ABDOMEN: Normal in appearance, soft, tympanic. No guarding. No rigidity. No hepatosplenomegaly. MILLED RUBBER TENDER: The patient is alert, awake, and oriented x3. Nonfocal neuro examination. Cranial nerves II through XII through grossly intact. Sensory and motor system is within normal limits. EXTREMITIES: No cyanosis, no clubbing, no edema. MEDICATIONS: Current medications include as follows. Cefazolin 2 gm IV q.8 hours, Ativan 1 mg IV q.4 hours, ciprofloxacin 1 drop q. 8 hours, ferrous gluconate 324 mg p.o. t.i.d., folic acid 1 mg p.o. daily, multivitamin 1 tablet daily, Lotrimin cream, magnesium oxide 400 mg p.o. b.i.d., Nizoral 5 gm topical b.i.d., Protonix 40 mg p.o. q.12 hours, Tylenol, thiamine 100 mg p.o. daily. LABORATORY DATA: Include as follows. As of 10/10/2017, sodium 129, potassium 4.4, chloride 92, CO2 of 26, BUN 13, creatinine 0.8, glucose 108, serum osmolality 280, uric acid 5.1, calcium is 8.6, proBNP 317, and TSH is 1.26. Hepatitis C antibody, IgM is negative, hepatitis B surface antigen negative, hepatitis B core antibody IgM is negative, hepatitis C antibody is negative, HIV 1 and 2 antibodies are negative. His vancomycin level as of 10/08/2017, is 15.7. Chest x-ray as of 10/06/2017, no active disease. His blood culture as of 10/06/2017, positive for Staph aureus x2 and repeat blood cultures as of 10/08/2017 is negative day 2, and urine culture was negative. MRSA screening was negative on 10/04/2017. IMPRESSION: In summary again, Mr. Rodriguez is a 62 years old elderly homeless male with history of knee surgery was admitted with purulent drainage from eyes and not feeling well, and the patient was found to Staph aureus sepsis with low serum sodium. 1. Staph aureus sepsis. Source is not clear. 2. Status post conjunctivitis. 3. Hyponatremia, rule out syndrome of inappropriate antidiuretic hormone secretion. Check serum cortisol level also. Most likely intravascular volume depletion. Follow up with Renal, the patient is seen and examined. Repeat BMP and CBC in a.m. and serum cortisol in a.m. Prema Wooten MD MTDD
[2017-10-11] MEDS: Pantoprazole 40 mg EC Tab PO SCH ×2 (05:20→17:44)
[2017-10-11 08:11] LABS: BLOOD UREA NITROGEN 12 mg/dL (9-20); CALCIUM 8.5 mg/dl (8.6-10.4); GFR AFRICAN-AMERICAN > 60; GFR NON-AFRICAN AMERICAN > 60
[2017-10-11 09:59] LABS: BASO # 0.1 K/uL (0.0-0.2); BASO % 0.6 % (0.0-2.0); EOS # 0.4 K/uL (0.0-0.7); EOS % 4.2 % (0.0-4.0); HEMOGLOBIN 9.6 g/dL (12.0-18.0); LYMPH # 1.1 K/uL (1.0-4.3); LYMPH % 11.4 % (20.0-40.0); MEAN CELL VOLUME 86.5 fL (80.0-94.0); MEAN CORPUSCULAR HEMOGLOBIN 30.2 pg (27.0-31.0); MEAN CORPUSCULAR HGB CONC 34.9 g/dL (33.0-37.0); MEAN PLATELET VOLUME 7.1 fL (7.2-11.7); MONO # 1.1 K/uL (0.0-0.8); MONO % 10.4 % (0.0-10.0); NEUT # 7.4 K/uL (1.8-7.0); NEUT % 73.4 % (50.0-75.0); RBC 3.18 Mil/uL (4.40-5.90); RED CELL DISTRIBUTION WIDTH 15.3 % (11.5-14.5); WHITE BLOOD COUNT 10.1 K/uL (4.8-10.8)
[2017-10-11] MEDS: Multiple Vitamins Tab PO SCH (10:29)
[2017-10-11] MEDS: Clotrimazole 1% Cream(30 gm) TOP SCH ×2 (10:35→17:45)
[2017-10-11] MEDS: Magnesium Oxide 400 mg Tab UD PO SCH ×2 (10:35→17:44)
--- NOTE | 2017-10-11 11:40 | CP.PCM.PN ---
Subjective - Date & Time of Evaluation Date of Evaluation: 10/11/17 Time of Evaluation: 11:38 - Subjective Subjective: Follow up Nephrology Consultation: Assessment: Stable Hyponatremia likely due to chronic Etoh intake and low solute intake. also with high urine Na and osmol: suggests SIADH status chronic sys CHF Anemia, hypomagnesemia Chronic Etoh abuse MSSA Bacteremia Plan no need for hypertonic saline. avoid correction in serum Na > 6-8 meq/24 hrs oral fluid restriction to 1200 mL/day supplement electrolytes as needed Glycemic control antibiotics as per ID Heme following for anemia management. iron supplement as MVI as ordered. recommend screening colonoscopy once stable pt advised to abstain from etoh CHF management as per primary team Further work up/management as per primary team Thanks for allowing me to participate in care of your patient. Will follow patient with you. Please call if any Qs. d/w sister as well Dr Yusuf Saleem Office: [phone] HPI: Pt is a 62 M with hx of chronic Etoh abuse and smoker presented with complaints of eye discharge, feeling sick, found to have severe anemia and MSSA Bacteremia. Renal consult for Hyponatremia. pt feels sick but no SOB. not on psych meds or thiazide. denies drinking excess water. non smoker ROS: Cardiovascular: No chest pain. Pulmonary: No shortness of breath Gastrointestinal: denies abdominal pain No nausea. No vomiting. had loose stool Genitourinary: No pain while urinating. Denies blood in urine. All other negative Physical Examination: General Appearance: Comfortable, in no acute respiratory distress, co-operative . Vitals reviewed and noted as below Head; Atraumatic, normocephalic ENT: no ulcers no thrush. Tongue is midline. Oropharynx: no rash or ulcers. EYES: Pupils are equal, round and reactive to light accommodation. Eye muscles and extraocular movement intact. Sclera is anicteric. Neck; supple no lymphadenopathy, no thyromegaly or bruit Lungs: Normal respiratory rate/effort. Breath sounds bilateral equal and clear Heart: Increased rate. s1s2 normal. No rub or gallop. Extremities: no edema. No varicose veins Neurological: Patient is alert, awake and oriented to person, place and time. No focal deficit. Strength bilateral appropriate and equal Skin: Warm and dry. Normal turgor. No rash. Palpitation: Normal elasticity for age Abdomen: Abdomen is soft. Bowel sounds +. There is no abdominal tenderness, no guarding/rigidity no organomegaly Psych: limited insight and flat affect/mood MSK: no joint tenderness or swelling. Digits and nails normal, no deformity : kidney or bladder not palpable Labs/imaging reviewed. Past medical history, past surgical history, family history, social history, allergy reviewed and noted as below Family hx: no hx of CKD. Rest non-contributory echo: mild to moderate reduced LVEF Objective - Vital Signs/Intake and Output Vital Signs (last 24 hours): Temp Pulse Resp BP Pulse Ox 98.4 F 114 H 18 100/60 98 10/11/17 07:30 10/11/17 08:34 10/11/17 07:30 10/11/17 07:30 10/11/17 07:30 - Medications Medications: Current Medications Acetaminophen (Tylenol 325mg Tab) 650 mg PO Q6 PRN PRN Reason: Pain, Mild (1-3) Last Admin: 10/10/17 15:26 Dose: 650 mg Ciprofloxacin (Ciloxan 0.3% Ophth Soln) 1 drop OU Q8H [facility] Last Admin: 10/11/17 10:29 Dose: 1 drop Clotrimazole (Lotrimin 1%) 0 gm TOP BID [facility] Last Admin: 10/11/17 10:35 Dose: 1 applic Ferrous Gluconate (Fergon) 324 mg PO TID [facility] Last Admin: 10/11/17 10:30 Dose: 324 mg Folic Acid (Folic Acid) 1 mg PO DAILY [facility] Last Admin: 10/11/17 10:30 Dose: 1 mg Cefazolin Sodium/Dextrose (Ancef Iv 2 Gm Duplex) 2 gm in 50 mls @ 100 mls/hr IVPB Q8H [facility] Last Admin: 10/11/17 10:34 Dose: 100 mls/hr Ketoconazole (Nizoral) 5 gm TOP BID [facility] Last Admin: 10/11/17 10:36 Dose: 1 applic Lorazepam (Ativan) 1 mg IVP Q4H PRN PRN Reason: Symptoms of alcohol withdrawl Last Admin: 10/05/17 06:37 Dose: 1 mg Magnesium Oxide (Mag-Ox) 400 mg PO BID [facility] Last Admin: 10/11/17 10:35 Dose: 400 mg Multivitamins (Hexavitamin) 1 tab PO DAILY [facility] Last Admin: 10/11/17 10:29 Dose: 1 tab Pantoprazole Sodium (Protonix Ec Tab) 40 mg PO Q12H [facility] Last Admin: 10/11/17 05:20 Dose: 40 mg Thiamine HCl (Vitamin B1 Tab) 100 mg PO DAILY [facility] Last Admin: 10/11/17 10:30 Dose: 100 mg - Labs Labs: 10/11/17 09:50 10/11/17 07:45 PT 14.1 SECONDS (9.7-12.2) H 10/02/17 20:24 INR 1.3 10/02/17 20:24 APTT 25 SECONDS (21-34) 10/02/17 20:24
--- NOTE | 2017-10-11 14:16 | CP.PCM.PN ---
Subjective - Date & Time of Evaluation Date of Evaluation: 10/11/17 Time of Evaluation: 09:00 - Subjective Subjective: weak but NAD afebrile Objective - Vital Signs/Intake and Output Vital Signs (last 24 hours): Temp Pulse Resp BP Pulse Ox 98.4 F 114 H 18 100/60 98 10/11/17 07:30 10/11/17 08:34 10/11/17 07:30 10/11/17 07:30 10/11/17 07:30 - Medications Medications: Current Medications Acetaminophen (Tylenol 325mg Tab) 650 mg PO Q6 PRN PRN Reason: Pain, Mild (1-3) Last Admin: 10/10/17 15:26 Dose: 650 mg Ciprofloxacin (Ciloxan 0.3% Ophth Soln) 1 drop OU Q8H [facility] Last Admin: 10/11/17 10:29 Dose: 1 drop Clotrimazole (Lotrimin 1%) 0 gm TOP BID [facility] Last Admin: 10/11/17 10:35 Dose: 1 applic Ferrous Gluconate (Fergon) 324 mg PO TID [facility] Last Admin: 10/11/17 13:50 Dose: 324 mg Folic Acid (Folic Acid) 1 mg PO DAILY [facility] Last Admin: 10/11/17 10:30 Dose: 1 mg Cefazolin Sodium/Dextrose (Ancef Iv 2 Gm Duplex) 2 gm in 50 mls @ 100 mls/hr IVPB Q8H [facility] Last Admin: 10/11/17 10:34 Dose: 100 mls/hr Ketoconazole (Nizoral) 5 gm TOP BID [facility] Last Admin: 10/11/17 10:36 Dose: 1 applic Lorazepam (Ativan) 1 mg IVP Q4H PRN PRN Reason: Symptoms of alcohol withdrawl Last Admin: 10/05/17 06:37 Dose: 1 mg Magnesium Oxide (Mag-Ox) 400 mg PO BID [facility] Last Admin: 10/11/17 10:35 Dose: 400 mg Multivitamins (Hexavitamin) 1 tab PO DAILY [facility] Last Admin: 10/11/17 10:29 Dose: 1 tab Pantoprazole Sodium (Protonix Ec Tab) 40 mg PO Q12H [facility] Last Admin: 10/11/17 05:20 Dose: 40 mg Thiamine HCl (Vitamin B1 Tab) 100 mg PO DAILY [facility] Last Admin: 10/11/17 10:30 Dose: 100 mg - Labs Labs: 10/11/17 09:50 10/11/17 07:45 PT 14.1 SECONDS (9.7-12.2) H 10/02/17 20:24 INR 1.3 10/02/17 20:24 APTT 25 SECONDS (21-34) 10/02/17 20:24 - Constitutional Appears: Chronically Ill - Head Exam Head Exam: NORMAL INSPECTION - Eye Exam Eye Exam: PERRL - ENT Exam ENT Exam: Mucous Membranes Dry - Neck Exam Neck Exam: absent: Lymphadenopathy - Respiratory Exam Respiratory Exam: Decreased Breath Sounds, Rhonchi - Cardiovascular Exam Cardiovascular Exam: REGULAR RHYTHM - GI/Abdominal Exam GI & Abdominal Exam: Distended, Soft - Rectal Exam Rectal Exam: Deferred - Exam Exam: NORMAL INSPECTION - Extremities Exam Extremities Exam: absent: Pedal Edema - Back Exam Back Exam: absent: CVA tenderness (L), CVA tenderness (R) Assessment and Plan (1) Alcohol abuse Status: Acute (2) Anemia Status: Acute (3) Conjunctivitis Status: Acute (4) Leukocytosis Status: Acute (5) Severe anemia Status: Acute (6) Skin disease, fungal Status: Acute (7) Alcohol withdrawal Status: Acute
--- NOTE | 2017-10-11 15:12 | CP.PCM.PN ---
Subjective - Date & Time of Evaluation Date of Evaluation: 10/11/17 Time of Evaluation: 15:00 - Subjective Subjective: Progress note dictated #[id number] Objective - Vital Signs/Intake and Output Vital Signs (last 24 hours): Temp Pulse Resp BP Pulse Ox 98.4 F 114 H 18 100/60 98 10/11/17 07:30 10/11/17 08:34 10/11/17 07:30 10/11/17 07:30 10/11/17 07:30 - Medications Medications: Current Medications Acetaminophen (Tylenol 325mg Tab) 650 mg PO Q6 PRN PRN Reason: Pain, Mild (1-3) Last Admin: 10/10/17 15:26 Dose: 650 mg Ciprofloxacin (Ciloxan 0.3% Ophth Soln) 1 drop OU Q8H [facility] Last Admin: 10/11/17 10:29 Dose: 1 drop Clotrimazole (Lotrimin 1%) 0 gm TOP BID [facility] Last Admin: 10/11/17 10:35 Dose: 1 applic Ferrous Gluconate (Fergon) 324 mg PO TID [facility] Last Admin: 10/11/17 13:50 Dose: 324 mg Folic Acid (Folic Acid) 1 mg PO DAILY [facility] Last Admin: 10/11/17 10:30 Dose: 1 mg Cefazolin Sodium/Dextrose (Ancef Iv 2 Gm Duplex) 2 gm in 50 mls @ 100 mls/hr IVPB Q8H [facility] Last Admin: 10/11/17 10:34 Dose: 100 mls/hr Ketoconazole (Nizoral) 5 gm TOP BID [facility] Last Admin: 10/11/17 10:36 Dose: 1 applic Lorazepam (Ativan) 1 mg IVP Q4H PRN PRN Reason: Symptoms of alcohol withdrawl Last Admin: 10/05/17 06:37 Dose: 1 mg Magnesium Oxide (Mag-Ox) 400 mg PO BID [facility] Last Admin: 10/11/17 10:35 Dose: 400 mg Multivitamins (Hexavitamin) 1 tab PO DAILY [facility] Last Admin: 10/11/17 10:29 Dose: 1 tab Pantoprazole Sodium (Protonix Ec Tab) 40 mg PO Q12H [facility] Last Admin: 10/11/17 05:20 Dose: 40 mg Thiamine HCl (Vitamin B1 Tab) 100 mg PO DAILY [facility] Last Admin: 10/11/17 10:30 Dose: 100 mg - Labs Labs: 10/11/17 09:50 10/11/17 07:45 PT 14.1 SECONDS (9.7-12.2) H 10/02/17 20:24 INR 1.3 10/02/17 20:24 APTT 25 SECONDS (21-34) 10/02/17 20:24
--- NOTE | 2017-10-11 20:11 | PN ---
DATE: 10/11/2017 SUBJECTIVE: The patient was seen and examined at bedside. The patient tells that he is feeling slightly better but still complaining of generalized fatigue and weakness. All other systems were reviewed and was found to be negative. PHYSICAL EXAMINATION: GENERAL: Middle-aged male, lying in bed, in no acute distress. VITAL SIGNS: Blood pressure 100/60, pulse 112, respirations 18, temperature 98.1 degrees Fahrenheit, and O2 saturations 98% on room air. MEDICATIONS: Include Tylenol as needed, Ancef 2 gm IV q.8 hours, ciprofloxacin, Lotrimin, ferrous gluconate 325 mg p.o. t.i.d., folic acid 1 mg daily, Nizoral topical cream, Ativan as needed, magnesium oxide 400 mg b.i.d., multivitamin one tablet daily, Protonix 40 mg p.o. q.12 hours, thiamine 100 mg daily. LABORATORY DATA: Labs from this morning, WBC 10.1, hemoglobin 9.6, hematocrit 27.6, and platelets 531. Sodium 132, potassium 4.6, chloride 96, bicarbonate 29, BUN 12, creatinine 0.8, glucose 91, calcium 8.5, cortisol 10.3, TSH 1.26. UA negative. Repeat blood cultures are negative. Echocardiogram negative for any vegetation. ASSESSMENT AND PLAN: Middle-aged male with EtOH abuse, intoxication, anemia, status post 2 units of packed red blood cells transfusion, iron-deficiency and B12 deficiency anemia, status post esophagogastroduodenoscopy consistent with gastritis, status post hypokalemia and hypomagnesemia, hyponatremia with improving sodium level, on fluid restriction, methicillin-sensitive staphylococcus aureus bacteremia but negative transesophageal echocardiography, and fungal infection of the foot and the toes. We will continue with current antibiotics as per Dr. Davis. We will follow up with Patient Svcs Mgr for discharge planning. We will repeat labs in a.m. We will add further recommendation as his clinical course progresses. Daina Wooten MD
--- NOTE | 2017-10-11 23:27 | CP.PCM.PN ---
Subjective - Date & Time of Evaluation Date of Evaluation: 10/11/17 Time of Evaluation: 19:00 - Subjective Subjective: Feels weak Objective - Vital Signs/Intake and Output Vital Signs (last 24 hours): Temp Pulse Resp BP Pulse Ox 97.9 F 111 H 20 117/71 97 10/11/17 16:39 10/11/17 20:00 10/11/17 16:39 10/11/17 16:39 10/11/17 16:39 Intake and Output: 10/11/17 10/12/17 18:59 06:59 Intake Total 550 600 Balance 550 600 - Medications Medications: Current Medications Acetaminophen (Tylenol 325mg Tab) 650 mg PO Q6 PRN PRN Reason: Pain, Mild (1-3) Last Admin: 10/10/17 15:26 Dose: 650 mg Ciprofloxacin (Ciloxan 0.3% Ophth Soln) 1 drop OU Q8H [facility] Last Admin: 10/11/17 17:44 Dose: 1 drop Clotrimazole (Lotrimin 1%) 0 gm TOP BID [facility] Last Admin: 10/11/17 17:45 Dose: 1 applic Ferrous Gluconate (Fergon) 324 mg PO TID [facility] Last Admin: 10/11/17 17:44 Dose: 324 mg Folic Acid (Folic Acid) 1 mg PO DAILY [facility] Last Admin: 10/11/17 10:30 Dose: 1 mg Cefazolin Sodium/Dextrose (Ancef Iv 2 Gm Duplex) 2 gm in 50 mls @ 100 mls/hr IVPB Q8H [facility] Last Admin: 10/11/17 18:21 Dose: 100 mls/hr Ketoconazole (Nizoral) 5 gm TOP BID [facility] Last Admin: 10/11/17 17:45 Dose: 1 applic Lorazepam (Ativan) 1 mg IVP Q4H PRN PRN Reason: Symptoms of alcohol withdrawl Last Admin: 10/05/17 06:37 Dose: 1 mg Magnesium Oxide (Mag-Ox) 400 mg PO BID [facility] Last Admin: 10/11/17 17:44 Dose: 400 mg Multivitamins (Hexavitamin) 1 tab PO DAILY [facility] Last Admin: 10/11/17 10:29 Dose: 1 tab Oseltamivir Phosphate (Tamiflu Cap) 75 mg PO BID [facility] Stop: 10/16/17 18:34 Last Admin: 10/11/17 18:58 Dose: 75 mg Pantoprazole Sodium (Protonix Ec Tab) 40 mg PO Q12H [facility] Last Admin: 10/11/17 17:44 Dose: 40 mg Thiamine HCl (Vitamin B1 Tab) 100 mg PO DAILY [facility] Last Admin: 10/11/17 10:30 Dose: 100 mg - Labs Labs: 10/11/17 09:50 10/11/17 07:45 PT 14.1 SECONDS (9.7-12.2) H 10/02/17 20:24 INR 1.3 10/02/17 20:24 APTT 25 SECONDS (21-34) 10/02/17 20:24 - Head Exam Head Exam: ATRAUMATIC - Eye Exam Eye Exam: Normal appearance - ENT Exam ENT Exam: Mucous Membranes Dry - Respiratory Exam Respiratory Exam: NORMAL BREATHING PATTERN - Cardiovascular Exam Cardiovascular Exam: +S1, +S2 - GI/Abdominal Exam GI & Abdominal Exam: Normal Bowel Sounds Assessment and Plan (1) Anemia Assessment & Plan: iron and b12 deficiency s/p supplementation on oral iron and folic acid Status: Acute (2) Leukocytosis Assessment & Plan: resolved with antibiotics Status: Acute
[2017-10-12] MEDS: Ciprofloxacin 0.3% OPTH SOLN OU SCH ×3 (00:53→17:43)
[2017-10-12] MEDS: ceFAZolin IV 2 gm in Dextrose 2 GM/50 ML BAG IVPB SCH ×3 (03:57→18:12)
[2017-10-12] MEDS: Pantoprazole 40 mg EC Tab PO SCH ×2 (05:30→17:42)
[2017-10-12 07:39] LABS: BASO # 0.1 K/uL (0.0-0.2); BASO % 1.3 % (0.0-2.0); EOS # 0.5 K/uL (0.0-0.7); EOS % 4.8 % (0.0-4.0); HEMOGLOBIN 9.6 g/dL (12.0-18.0); LYMPH # 1.2 K/uL (1.0-4.3); LYMPH % 12.2 % (20.0-40.0); MEAN CELL VOLUME 85.5 fL (80.0-94.0); MEAN CORPUSCULAR HEMOGLOBIN 30.3 pg (27.0-31.0); MEAN CORPUSCULAR HGB CONC 35.4 g/dL (33.0-37.0); MEAN PLATELET VOLUME 6.7 fL (7.2-11.7); MONO % 10.2 % (0.0-10.0); NEUT # 7.2 K/uL (1.8-7.0); NEUT % 71.5 % (50.0-75.0); RBC 3.17 Mil/uL (4.40-5.90)
[2017-10-12 07:53] LABS: ALB/GLOB RATIO 0.8 (1.0-2.1); ALBUMIN 3.1 g/dL (3.5-5.0); ALT/SGPT 17 U/L (21-72); AST/SGOT 35 U/L (17-59); BLOOD UREA NITROGEN 12 mg/dL (9-20); CALCIUM 8.5 mg/dl (8.6-10.4); GFR AFRICAN-AMERICAN > 60; GFR NON-AFRICAN AMERICAN > 60
[2017-10-12] MEDS: Multiple Vitamins Tab PO SCH (09:38)
[2017-10-12] MEDS: Magnesium Oxide 400 mg Tab UD PO SCH ×2 (09:38→17:42)
[2017-10-12] MEDS: Clotrimazole 1% Cream(30 gm) TOP SCH ×2 (09:42→17:46)
--- NOTE | 2017-10-12 11:20 | CP.PCM.PN ---
Subjective - Date & Time of Evaluation Date of Evaluation: 10/12/17 Time of Evaluation: 07:00 - Subjective Subjective: weak nad iv rx in progress + Flu antibody Objective - Vital Signs/Intake and Output Vital Signs (last 24 hours): Temp Pulse Resp BP Pulse Ox 98.9 F 117 H 20 122/77 98 10/12/17 07:20 10/12/17 07:20 10/12/17 07:20 10/12/17 07:20 10/12/17 07:20 Intake and Output: 10/12/17 10/12/17 06:59 18:59 Intake Total 600 Balance 600 - Medications Medications: Current Medications Acetaminophen (Tylenol 325mg Tab) 650 mg PO Q6 PRN PRN Reason: Pain, Mild (1-3) Last Admin: 10/10/17 15:26 Dose: 650 mg Ciprofloxacin (Ciloxan 0.3% Ophth Soln) 1 drop OU Q8H [facility] Last Admin: 10/12/17 09:36 Dose: 1 drop Clotrimazole (Lotrimin 1%) 0 gm TOP BID [facility] Last Admin: 10/12/17 09:42 Dose: 1 applic Ferrous Gluconate (Fergon) 324 mg PO TID [facility] Last Admin: 10/12/17 09:38 Dose: 324 mg Folic Acid (Folic Acid) 1 mg PO DAILY [facility] Last Admin: 10/12/17 09:39 Dose: 1 mg Cefazolin Sodium/Dextrose (Ancef Iv 2 Gm Duplex) 2 gm in 50 mls @ 100 mls/hr IVPB Q8H [facility] Last Admin: 10/12/17 03:57 Dose: 100 mls/hr Ketoconazole (Nizoral) 5 gm TOP BID [facility] Last Admin: 10/12/17 09:43 Dose: 1 applic Lorazepam (Ativan) 1 mg IVP Q4H PRN PRN Reason: Symptoms of alcohol withdrawl Last Admin: 10/05/17 06:37 Dose: 1 mg Magnesium Oxide (Mag-Ox) 400 mg PO BID [facility] Last Admin: 10/12/17 09:38 Dose: 400 mg Multivitamins (Hexavitamin) 1 tab PO DAILY [facility] Last Admin: 10/12/17 09:38 Dose: 1 tab Oseltamivir Phosphate (Tamiflu Cap) 75 mg PO BID [facility] Stop: 10/16/17 18:34 Last Admin: 10/12/17 09:38 Dose: 75 mg Pantoprazole Sodium (Protonix Ec Tab) 40 mg PO Q12H [facility] Last Admin: 10/12/17 05:30 Dose: 40 mg Thiamine HCl (Vitamin B1 Tab) 100 mg PO DAILY [facility] Last Admin: 10/12/17 09:38 Dose: 100 mg - Labs Labs: 10/12/17 07:16 10/12/17 07:16 PT 14.1 SECONDS (9.7-12.2) H 10/02/17 20:24 INR 1.3 10/02/17 20:24 APTT 25 SECONDS (21-34) 10/02/17 20:24 - Constitutional Appears: Non-toxic, Chronically Ill - Head Exam Head Exam: NORMOCEPHALIC - Eye Exam Eye Exam: PERRL - ENT Exam ENT Exam: Mucous Membranes Dry - Neck Exam Neck Exam: absent: Lymphadenopathy - Respiratory Exam Respiratory Exam: Decreased Breath Sounds - Cardiovascular Exam Cardiovascular Exam: REGULAR RHYTHM Assessment and Plan (1) Alcohol abuse Status: Acute (2) Anemia Status: Acute (3) Conjunctivitis Status: Acute (4) Leukocytosis Status: Acute (5) Severe anemia Status: Acute (6) Skin disease, fungal Status: Acute (7) Alcohol withdrawal Status: Acute
--- NOTE | 2017-10-12 11:54 | CP.PCM.PN ---
Subjective - Date & Time of Evaluation Date of Evaluation: 10/12/17 Time of Evaluation: 11:45 - Subjective Subjective: Progress note dictated # [id number] Objective - Vital Signs/Intake and Output Vital Signs (last 24 hours): Temp Pulse Resp BP Pulse Ox 98.9 F 117 H 20 122/77 98 10/12/17 07:20 10/12/17 07:20 10/12/17 07:20 10/12/17 07:20 10/12/17 07:20 Intake and Output: 10/12/17 10/12/17 06:59 18:59 Intake Total 600 Balance 600 - Medications Medications: Current Medications Acetaminophen (Tylenol 325mg Tab) 650 mg PO Q6 PRN PRN Reason: Pain, Mild (1-3) Last Admin: 10/10/17 15:26 Dose: 650 mg Ciprofloxacin (Ciloxan 0.3% Ophth Soln) 1 drop OU Q8H [facility] Last Admin: 10/12/17 09:36 Dose: 1 drop Clotrimazole (Lotrimin 1%) 0 gm TOP BID [facility] Last Admin: 10/12/17 09:42 Dose: 1 applic Ferrous Gluconate (Fergon) 324 mg PO TID [facility] Last Admin: 10/12/17 09:38 Dose: 324 mg Folic Acid (Folic Acid) 1 mg PO DAILY [facility] Last Admin: 10/12/17 09:39 Dose: 1 mg Cefazolin Sodium/Dextrose (Ancef Iv 2 Gm Duplex) 2 gm in 50 mls @ 100 mls/hr IVPB Q8H [facility] Last Admin: 10/12/17 03:57 Dose: 100 mls/hr Ketoconazole (Nizoral) 5 gm TOP BID [facility] Last Admin: 10/12/17 09:43 Dose: 1 applic Lorazepam (Ativan) 1 mg IVP Q4H PRN PRN Reason: Symptoms of alcohol withdrawl Last Admin: 10/05/17 06:37 Dose: 1 mg Magnesium Oxide (Mag-Ox) 400 mg PO BID [facility] Last Admin: 10/12/17 09:38 Dose: 400 mg Multivitamins (Hexavitamin) 1 tab PO DAILY [facility] Last Admin: 10/12/17 09:38 Dose: 1 tab Oseltamivir Phosphate (Tamiflu Cap) 75 mg PO BID [facility] Stop: 10/16/17 18:34 Last Admin: 10/12/17 09:38 Dose: 75 mg Pantoprazole Sodium (Protonix Ec Tab) 40 mg PO Q12H [facility] Last Admin: 10/12/17 05:30 Dose: 40 mg Thiamine HCl (Vitamin B1 Tab) 100 mg PO DAILY [facility] Last Admin: 10/12/17 09:38 Dose: 100 mg - Labs Labs: 10/12/17 07:16 10/12/17 07:16 PT 14.1 SECONDS (9.7-12.2) H 10/02/17 20:24 INR 1.3 10/02/17 20:24 APTT 25 SECONDS (21-34) 10/02/17 20:24
[2017-10-12] MEDS: Sodium Chloride 0.9% 1,000 ML IV SCH ×2 (12:45→21:16)
--- NOTE | 2017-10-12 14:14 | CP.PCM.PN ---
Subjective - Date & Time of Evaluation Date of Evaluation: 10/12/17 Time of Evaluation: 14:11 - Subjective Subjective: in bed chronic dibility weakness Objective - Vital Signs/Intake and Output Vital Signs (last 24 hours): Temp Pulse Resp BP Pulse Ox 98.9 F 117 H 20 122/77 98 10/12/17 07:20 10/12/17 07:20 10/12/17 07:20 10/12/17 07:20 10/12/17 07:20 Intake and Output: 10/12/17 10/12/17 06:59 18:59 Intake Total 600 Balance 600 - Medications Medications: Current Medications Acetaminophen (Tylenol 325mg Tab) 650 mg PO Q6 PRN PRN Reason: Pain, Mild (1-3) Last Admin: 10/10/17 15:26 Dose: 650 mg Ciprofloxacin (Ciloxan 0.3% Ophth Soln) 1 drop OU Q8H [facility] Last Admin: 10/12/17 09:36 Dose: 1 drop Clotrimazole (Lotrimin 1%) 0 gm TOP BID [facility] Last Admin: 10/12/17 09:42 Dose: 1 applic Ferrous Gluconate (Fergon) 324 mg PO TID [facility] Last Admin: 10/12/17 09:38 Dose: 324 mg Folic Acid (Folic Acid) 1 mg PO DAILY [facility] Last Admin: 10/12/17 09:39 Dose: 1 mg Cefazolin Sodium/Dextrose (Ancef Iv 2 Gm Duplex) 2 gm in 50 mls @ 100 mls/hr IVPB Q8H [facility] Last Admin: 10/12/17 12:46 Dose: 100 mls/hr Sodium Chloride (Sodium Chloride 0.9%) 1,000 mls @ 100 mls/hr IV .Q10H [facility] Last Admin: 10/12/17 12:45 Dose: 100 mls/hr Ketoconazole (Nizoral) 5 gm TOP BID [facility] Last Admin: 10/12/17 09:43 Dose: 1 applic Lorazepam (Ativan) 1 mg IVP Q4H PRN PRN Reason: Symptoms of alcohol withdrawl Last Admin: 10/05/17 06:37 Dose: 1 mg Magnesium Oxide (Mag-Ox) 400 mg PO BID [facility] Last Admin: 10/12/17 09:38 Dose: 400 mg Multivitamins (Hexavitamin) 1 tab PO DAILY [facility] Last Admin: 10/12/17 09:38 Dose: 1 tab Oseltamivir Phosphate (Tamiflu Cap) 75 mg PO BID [facility] Stop: 10/16/17 18:34 Last Admin: 10/12/17 09:38 Dose: 75 mg Pantoprazole Sodium (Protonix Ec Tab) 40 mg PO Q12H [facility] Last Admin: 10/12/17 05:30 Dose: 40 mg Thiamine HCl (Vitamin B1 Tab) 100 mg PO DAILY [facility] Last Admin: 10/12/17 09:38 Dose: 100 mg - Labs Labs: 10/12/17 07:16 10/12/17 07:16 PT 14.1 SECONDS (9.7-12.2) H 10/02/17 20:24 INR 1.3 10/02/17 20:24 APTT 25 SECONDS (21-34) 10/02/17 20:24 - Constitutional Appears: Non-toxic, No Acute Distress, Cachectic - Eye Exam Eye Exam: Conjunctival injection - ENT Exam ENT Exam: Mucous Membranes Moist - Cardiovascular Exam Cardiovascular Exam: absent: Gallop, JVD, Rubs - GI/Abdominal Exam GI & Abdominal Exam: Soft, Normal Bowel Sounds - Extremities Exam Extremities Exam: absent: Calf Tenderness - Back Exam Back Exam: absent: CVA tenderness (L), CVA tenderness (R) - Neurological Exam Neurological Exam: Altered - Skin Skin Exam: absent: Cyanosis Assessment and Plan (1) Alcohol abuse Status: Acute (2) Leukocytosis Status: Acute (3) Severe anemia Status: Acute - Assessment and Plan (Free Text) Assessment: Hyponatremia likely due to chronic Etoh intake and low solute intake. also with high urine Na and osmol: suggests SIADH status chronic sys CHF Anemia, hypomagnesemia Chronic Etoh abuse MSSA Bacteremia worsenung hyponatremia consistant with SIADH consider Tolvaptan if continue dropping
--- NOTE | 2017-10-12 22:44 | CP.PCM.PN ---
Subjective - Date & Time of Evaluation Date of Evaluation: 10/12/17 Time of Evaluation: 19:00 - Subjective Subjective: Feels weak Objective - Vital Signs/Intake and Output Vital Signs (last 24 hours): Temp Pulse Resp BP Pulse Ox 97.8 F 105 H 20 106/68 97 10/12/17 21:19 10/12/17 20:25 10/12/17 15:00 10/12/17 15:00 10/12/17 15:00 Intake and Output: 10/12/17 10/13/17 18:59 06:59 Intake Total 1600 Balance 1600 - Medications Medications: Current Medications Acetaminophen (Tylenol 325mg Tab) 650 mg PO Q6 PRN PRN Reason: Pain, Mild (1-3) Last Admin: 10/10/17 15:26 Dose: 650 mg Ciprofloxacin (Ciloxan 0.3% Ophth Soln) 1 drop OU Q8H [facility] Last Admin: 10/12/17 17:43 Dose: 1 drop Clotrimazole (Lotrimin 1%) 0 gm TOP BID [facility] Last Admin: 10/12/17 17:46 Dose: 1 applic Ferrous Gluconate (Fergon) 324 mg PO TID [facility] Last Admin: 10/12/17 17:43 Dose: 324 mg Folic Acid (Folic Acid) 1 mg PO DAILY [facility] Last Admin: 10/12/17 09:39 Dose: 1 mg Cefazolin Sodium/Dextrose (Ancef Iv 2 Gm Duplex) 2 gm in 50 mls @ 100 mls/hr IVPB Q8H [facility] Last Admin: 10/12/17 18:12 Dose: 100 mls/hr Sodium Chloride (Sodium Chloride 0.9%) 1,000 mls @ 100 mls/hr IV .Q10H [facility] Last Admin: 10/12/17 21:16 Dose: Not Given Ketoconazole (Nizoral) 5 gm TOP BID [facility] Last Admin: 10/12/17 17:45 Dose: 1 applic Lorazepam (Ativan) 1 mg IVP Q4H PRN PRN Reason: Symptoms of alcohol withdrawl Last Admin: 10/05/17 06:37 Dose: 1 mg Magnesium Oxide (Mag-Ox) 400 mg PO BID [facility] Last Admin: 10/12/17 17:42 Dose: 400 mg Multivitamins (Hexavitamin) 1 tab PO DAILY [facility] Last Admin: 10/12/17 09:38 Dose: 1 tab Oseltamivir Phosphate (Tamiflu Cap) 75 mg PO BID [facility] Stop: 10/16/17 18:34 Last Admin: 10/12/17 17:42 Dose: 75 mg Pantoprazole Sodium (Protonix Ec Tab) 40 mg PO Q12H [facility] Last Admin: 10/12/17 17:42 Dose: 40 mg Thiamine HCl (Vitamin B1 Tab) 100 mg PO DAILY [facility] Last Admin: 10/12/17 09:38 Dose: 100 mg - Labs Labs: 10/12/17 07:16 10/12/17 07:16 PT 14.1 SECONDS (9.7-12.2) H 10/02/17 20:24 INR 1.3 10/02/17 20:24 APTT 25 SECONDS (21-34) 10/02/17 20:24 - Head Exam Head Exam: ATRAUMATIC - Eye Exam Eye Exam: Normal appearance - ENT Exam ENT Exam: Mucous Membranes Dry - Respiratory Exam Respiratory Exam: NORMAL BREATHING PATTERN - Cardiovascular Exam Cardiovascular Exam: +S1, +S2 - GI/Abdominal Exam GI & Abdominal Exam: Normal Bowel Sounds Assessment and Plan (1) Anemia Assessment & Plan: iron and b12 deficiency s/p supplementation on oral iron and folic acid Status: Acute
[2017-10-13] MEDS: Ciprofloxacin 0.3% OPTH SOLN OU SCH ×5 (01:46→18:08)
--- NOTE | 2017-10-13 02:18 | PN ---
DATE: 10/12/2017 SUBJECTIVE: The patient was seen and examined at bedside. The patient claims that he is feeling slightly better than yesterday, complaining of soft bowel movement, eating better, ambulating with the physical therapy. Denies any new complaints. PHYSICAL EXAMINATION: GENERAL: Middle-aged male, lying in bed, in no acute distress. VITAL SIGNS: Blood pressure 106/68, pulse 120, respirations 20, temperature 99.3 degrees Fahrenheit, and O2 saturations 97% on room air. HEENT: Pupils are equal, round, reacting to light, and accommodation. No icterus. NECK: Supple. No JVD. LUNGS: Bilateral vesicular breath sounds. No wheezing, no rhonchi. CVS: S1, S2 present, regular. ABDOMEN: Soft, nontender. Bowel sounds present. No guarding. No rigidity. No rebound tenderness noted. FLAME CUTTER: Alert, awake, and oriented x3. No focal deficits noted. EXTREMITIES: No edema. MEDICATIONS: Include Tylenol as needed, Ancef 2 g IV q. 8 hours, ferrous gluconate, folic acid, Nizoral cream, magnesium oxide, multivitamin, Tamiflu 75 mg p.o. b.i.d., Protonix 40 mg p.o. q.12 hours, IV fluids 100 mL an hour, thiamine 100 mg p.o. daily. LABORATORY DATA: Labs from today, WBC 10, hemoglobin 9.6, hematocrit 27.1, platelets 544. Sodium 130, potassium 4.1, chloride 96, bicarbonate 27, BUN 12, creatinine 0.8, glucose 96, calcium 8.5. Influenza A and B negative, but Influenza A and B antibody type is elevated. Repeat blood cultures are negative so far. ASSESSMENT AND PLAN: Middle-aged male with EtOH abuse, intoxication, methicillin-sensitive staphylococcus aureus bacteremia, influenza A and B antibody positive with high titers, hyponatremia, status post hypokalemia, anemia status post packed red blood cells transfusion, iron-deficiency anemia, B12 deficiency anemia, status post esophagogastroduodenoscopy consistent with gastritis. I will continue with Ancef 2 g IV q. 8 hours as per Infectious Disease recommendation. Tamiflu is being added for positive antibody elevated titers. Continue with iron supplementation and other vitamin supplementation. The patient has persistent tachycardia with low-grade temperature. We will start IV fluids normal saline at 100 mL an hour, monitor electrolytes. Follow up with Family Medicine Physician for discharge planning. Awaiting for authorization and placement. Daina Wooten MD
[2017-10-13] MEDS: ceFAZolin IV 2 gm in Dextrose 2 GM/50 ML BAG IVPB SCH ×3 (02:45→18:10)
[2017-10-13] MEDS: Pantoprazole 40 mg EC Tab PO SCH ×2 (06:36→18:10)
[2017-10-13] MEDS: Sodium Chloride 0.9% 1,000 ML IV SCH ×2 (08:00→18:12)
[2017-10-13 08:36] LABS: BASO # 0.1 K/uL (0.0-0.2); EOS # 0.5 K/uL (0.0-0.7); EOS % 5.5 % (0.0-4.0); HEMOGLOBIN 9.3 g/dL (12.0-18.0); LYMPH # 1.3 K/uL (1.0-4.3); LYMPH % 13.7 % (20.0-40.0); MEAN CELL VOLUME 85.5 fL (80.0-94.0); MEAN CORPUSCULAR HEMOGLOBIN 30.3 pg (27.0-31.0); MEAN CORPUSCULAR HGB CONC 35.4 g/dL (33.0-37.0); MEAN PLATELET VOLUME 6.8 fL (7.2-11.7); MONO # 1.1 K/uL (0.0-0.8); MONO % 11.9 % (0.0-10.0); NEUT # 6.3 K/uL (1.8-7.0); NEUT % 67.9 % (50.0-75.0); RBC 3.06 Mil/uL (4.40-5.90); RED CELL DISTRIBUTION WIDTH 15.1 % (11.5-14.5); WHITE BLOOD COUNT 9.3 K/uL (4.8-10.8)
[2017-10-13 09:12] LABS: ALB/GLOB RATIO 0.9 (1.0-2.1); ALBUMIN 3.2 g/dL (3.5-5.0); ALT/SGPT 9 U/L (21-72); AST/SGOT 38 U/L (17-59); BLOOD UREA NITROGEN 10 mg/dL (9-20); GFR AFRICAN-AMERICAN > 60; GFR NON-AFRICAN AMERICAN > 60
[2017-10-13] MEDS: Magnesium Oxide 400 mg Tab UD PO SCH ×2 (09:13→18:10)
[2017-10-13] MEDS: Multiple Vitamins Tab PO SCH (09:13)
[2017-10-13] MEDS: Clotrimazole 1% Cream(30 gm) TOP SCH ×2 (09:20→18:11)
--- NOTE | 2017-10-13 11:10 | CP.PCM.PN ---
Subjective - Date & Time of Evaluation Date of Evaluation: 10/13/17 Time of Evaluation: 10:45 - Subjective Subjective: Progress note dictated #[id number] Objective - Vital Signs/Intake and Output Vital Signs (last 24 hours): Temp Pulse Resp BP Pulse Ox 98.2 F 101 H 20 111/66 96 10/12/17 23:35 10/13/17 07:30 10/12/17 23:35 10/12/17 23:35 10/12/17 23:35 Intake and Output: 10/13/17 10/13/17 06:59 18:59 Intake Total 1600 Balance 1600 - Medications Medications: Current Medications Acetaminophen (Tylenol 325mg Tab) 650 mg PO Q6 PRN PRN Reason: Pain, Mild (1-3) Last Admin: 10/10/17 15:26 Dose: 650 mg Ciprofloxacin (Ciloxan 0.3% Ophth Soln) 1 drop OU Q8H [facility] Last Admin: 10/13/17 09:16 Dose: 1 drop Clotrimazole (Lotrimin 1%) 0 gm TOP BID [facility] Last Admin: 10/13/17 09:20 Dose: 1 applic Ferrous Gluconate (Fergon) 324 mg PO TID [facility] Last Admin: 10/13/17 09:13 Dose: 324 mg Folic Acid (Folic Acid) 1 mg PO DAILY [facility] Last Admin: 10/13/17 09:14 Dose: 1 mg Cefazolin Sodium/Dextrose (Ancef Iv 2 Gm Duplex) 2 gm in 50 mls @ 100 mls/hr IVPB Q8H [facility] Last Admin: 10/13/17 02:45 Dose: 100 mls/hr Sodium Chloride (Sodium Chloride 0.9%) 1,000 mls @ 100 mls/hr IV .Q10H [facility] Last Admin: 10/13/17 08:00 Dose: Not Given Ketoconazole (Nizoral) 5 gm TOP BID [facility] Last Admin: 10/13/17 09:18 Dose: 1 applic Lorazepam (Ativan) 1 mg IVP Q4H PRN PRN Reason: Symptoms of alcohol withdrawl Last Admin: 10/05/17 06:37 Dose: 1 mg Magnesium Oxide (Mag-Ox) 400 mg PO BID [facility] Last Admin: 10/13/17 09:13 Dose: 400 mg Multivitamins (Hexavitamin) 1 tab PO DAILY [facility] Last Admin: 10/13/17 09:13 Dose: 1 tab Oseltamivir Phosphate (Tamiflu Cap) 75 mg PO BID [facility] Stop: 10/16/17 18:34 Last Admin: 10/13/17 09:13 Dose: 75 mg Pantoprazole Sodium (Protonix Ec Tab) 40 mg PO Q12H [facility] Last Admin: 10/13/17 06:36 Dose: 40 mg Thiamine HCl (Vitamin B1 Tab) 100 mg PO DAILY [facility] Last Admin: 10/13/17 09:13 Dose: 100 mg - Labs Labs: 10/13/17 08:23 10/13/17 08:23 PT 14.1 SECONDS (9.7-12.2) H 10/02/17 20:24 INR 1.3 10/02/17 20:24 APTT 25 SECONDS (21-34) 10/02/17 20:24
--- NOTE | 2017-10-13 13:29 | PN ---
DATE: 10/13/2017. SUBJECTIVE: The patient is seen and examined at bedside. The patient is feeling much better. Denies any new complaints. Ambulating, . All other systems reviewed and were found to be negative. PHYSICAL EXAMINATION: GENERAL: Middle-aged male, lying in bed, in no acute distress. VITAL SIGNS: Blood pressure 111/66, pulse 101, respirations 20, temperature 98.2 degrees Fahrenheit, and O2 saturations 96% on room air. HEENT: Pupils are equal, round, reacting to light and accommodation. Extraocular muscles intact. No icterus. Slight pallor. No oral thrush. No pharyngeal congestion. NECK: Supple. No JVD. LUNGS: Bilateral vesicular breath sounds. No wheezing, no rhonchi. CVS: S1, S2 present, regular. ABDOMEN: Soft, nontender. Bowel sounds present. No guarding, no rigidity. No rebound tenderness noted. DIRECTOR PHYSICAL THERAPY: Alert, awake, and oriented x3. No focal deficits noted. EXTREMITIES: No edema, palpable peripheral pulses. MEDICATIONS: Include Tylenol, Ancef 2 gm IV q. 8 hours, Lotrimin topical cream, ferrous gluconate 325 mg p.o. t.i.d., folic acid 1 mg p.o. daily, Nizoral 5 gm topical b.i.d. Ativan as needed, magnesium oxide 400 mg b.i.d., multivitamin 1 tab daily, Tamiflu 75 mg p.o. b.i.d., Protonix 40 mg p.o. q. 12 hours, IV fluids normal saline 100 mL an hour, thiamine 100 mg daily. LABORATORY DATA: Labs from this morning WBC , hemoglobin 9.3, hematocrit 26.1, platelets 550. Sodium 131, potassium 4.1, chloride 96, bicarb 26, BUN 10, creatinine 0.9, glucose 85, calcium 9.0. ASSESSMENT AND PLAN: Middle-aged male with ethyl alcohol abuse, ethyl alcohol intoxication, status post electrolyte imbalance, hyponatremia, anemia status post PRBC transfusion, status post EGD consistent with gastritis, iron deficiency anemia, B12 deficiency, and methicillin-susceptible Staphylococcus aureus bacteremia, but influenza A and B antibody high titers. Continue with Tamiflu and Ancef as per ID recommendation. Continue with other current therapy. We will request for PICC line for care home IV antibiotics. We will continue with other medications. Discussed with social worker and case management, awaiting for authorization for [facility] placement for care home IV antibiotics. Daina Wooten MD
--- NOTE | 2017-10-13 14:24 | RAD ---
HISTORY: verify right PICC COMPARISON: 10/06/2017. FINDINGS: The right PICC line terminates in the SVC. LUNGS: The lungs are well inflated and clear. PLEURA: No significant pleural effusion identified, no pneumothorax apparent. CARDIOVASCULAR: Normal. OSSEOUS STRUCTURES: No significant abnormalities. VISUALIZED UPPER ABDOMEN: Normal. OTHER FINDINGS: None. IMPRESSION: Right PICC line terminates in the SVC. No pneumothorax. No active pulmonary disease.
--- NOTE | 2017-10-13 14:43 | CP.PCM.PN ---
Subjective - Date & Time of Evaluation Date of Evaluation: 10/13/17 Time of Evaluation: 14:42 - Subjective Subjective: Follow up Nephrology Consultation: Assessment: Stable Hyponatremia likely due to chronic Etoh intake and low solute intake. also with high urine Na and osmol: suggests SIADH status chronic sys CHF Anemia, hypomagnesemia Chronic Etoh abuse MSSA Bacteremia Plan no need for hypertonic saline. avoid correction in serum Na > 6-8 meq/24 hrs oral fluid restriction to 1200 mL/day supplement electrolytes as needed Glycemic control antibiotics as per ID Heme following for anemia management. iron supplement as MVI as ordered. recommend screening colonoscopy once stable pt advised to abstain from etoh CHF management as per primary team Further work up/management as per primary team Thanks for allowing me to participate in care of your patient. Will follow patient with you. Please call if any Qs Dr Yusuf Saleem Office: [phone] HPI: Pt is a 62 M with hx of chronic Etoh abuse and smoker presented with complaints of eye discharge, feeling sick, found to have severe anemia and MSSA Bacteremia. Renal consult for Hyponatremia. pt feels sick but no SOB. not on psych meds or thiazide. denies drinking excess water. non smoker ROS: Cardiovascular: No chest pain. Pulmonary: No shortness of breath but c/o cough Gastrointestinal: denies abdominal pain No nausea. No vomiting. no further loose stool Genitourinary: No pain while urinating. Denies blood in urine. All other negative Physical Examination: General Appearance: Comfortable, in no acute respiratory distress, co-operative . Vitals reviewed and noted as below Head; Atraumatic, normocephalic ENT: no ulcers no thrush. Tongue is midline. Oropharynx: no rash or ulcers. EYES: Pupils are equal, round and reactive to light accommodation. Eye muscles and extraocular movement intact. Sclera is anicteric. Neck; supple no lymphadenopathy, no thyromegaly or bruit Lungs: Normal respiratory rate/effort. Breath sounds bilateral equal and clear Heart: Increased rate. s1s2 normal. No rub or gallop. Extremities: no edema. No varicose veins Neurological: Patient is alert, awake and oriented to person, place and time. No focal deficit. Strength bilateral appropriate and equal Skin: Warm and dry. Normal turgor. No rash. Palpitation: Normal elasticity for age Abdomen: Abdomen is soft. Bowel sounds +. There is no abdominal tenderness, no guarding/rigidity no organomegaly Psych: limited insight and flat affect/mood MSK: no joint tenderness or swelling. Digits and nails normal, no deformity : kidney or bladder not palpable Labs/imaging reviewed. Past medical history, past surgical history, family history, social history, allergy reviewed and noted as below Family hx: no hx of CKD. Rest non-contributory echo: mild to moderate reduced LVEF Objective - Vital Signs/Intake and Output Vital Signs (last 24 hours): Temp Pulse Resp BP Pulse Ox 98.2 F 101 H 20 124/78 98 10/13/17 07:11 10/13/17 07:30 10/13/17 07:11 10/13/17 07:11 10/13/17 07:11 Intake and Output: 10/13/17 10/13/17 06:59 18:59 Intake Total 1600 Balance 1600 - Medications Medications: Current Medications Acetaminophen (Tylenol 325mg Tab) 650 mg PO Q6 PRN PRN Reason: Pain, Mild (1-3) Last Admin: 10/10/17 15:26 Dose: 650 mg Ciprofloxacin (Ciloxan 0.3% Ophth Soln) 1 drop OU Q8H [facility] Last Admin: 10/13/17 09:16 Dose: 1 drop Clotrimazole (Lotrimin 1%) 0 gm TOP BID [facility] Last Admin: 10/13/17 09:20 Dose: 1 applic Ferrous Gluconate (Fergon) 324 mg PO TID [facility] Last Admin: 10/13/17 14:05 Dose: 324 mg Folic Acid (Folic Acid) 1 mg PO DAILY [facility] Last Admin: 10/13/17 09:14 Dose: 1 mg Cefazolin Sodium/Dextrose (Ancef Iv 2 Gm Duplex) 2 gm in 50 mls @ 100 mls/hr IVPB Q8H [facility] Last Admin: 10/13/17 11:35 Dose: 100 mls/hr Sodium Chloride (Sodium Chloride 0.9%) 1,000 mls @ 100 mls/hr IV .Q10H [facility] Last Admin: 10/13/17 08:00 Dose: Not Given Ketoconazole (Nizoral) 5 gm TOP BID [facility] Last Admin: 10/13/17 09:18 Dose: 1 applic Lorazepam (Ativan) 1 mg IVP Q4H PRN PRN Reason: Symptoms of alcohol withdrawl Last Admin: 10/05/17 06:37 Dose: 1 mg Magnesium Oxide (Mag-Ox) 400 mg PO BID [facility] Last Admin: 10/13/17 09:13 Dose: 400 mg Multivitamins (Hexavitamin) 1 tab PO DAILY [facility] Last Admin: 10/13/17 09:13 Dose: 1 tab Oseltamivir Phosphate (Tamiflu Cap) 75 mg PO BID [facility] Stop: 10/16/17 18:34 Last Admin: 10/13/17 09:13 Dose: 75 mg Pantoprazole Sodium (Protonix Ec Tab) 40 mg PO Q12H [facility] Last Admin: 10/13/17 06:36 Dose: 40 mg Thiamine HCl (Vitamin B1 Tab) 100 mg PO DAILY [facility] Last Admin: 10/13/17 09:13 Dose: 100 mg - Labs Labs: 10/13/17 08:23 10/13/17 08:23 PT 14.1 SECONDS (9.7-12.2) H 10/02/17 20:24 INR 1.3 10/02/17 20:24 APTT 25 SECONDS (21-34) 10/02/17 20:24
--- NOTE | 2017-10-13 18:33 | CP.PCM.PN ---
Subjective - Date & Time of Evaluation Date of Evaluation: 10/13/17 Time of Evaluation: 08:00 - Subjective Subjective: afeb on ancef mssa sepsis - may need rx as endocarditis ? Objective - Vital Signs/Intake and Output Vital Signs (last 24 hours): Temp Pulse Resp BP Pulse Ox 98.0 F 108 H 20 102/60 95 10/13/17 16:48 10/13/17 16:48 10/13/17 16:48 10/13/17 16:48 10/13/17 16:48 Intake and Output: 10/13/17 10/13/17 06:59 18:59 Intake Total 1600 300 Balance 1600 300 - Medications Medications: Current Medications Acetaminophen (Tylenol 325mg Tab) 650 mg PO Q6 PRN PRN Reason: Pain, Mild (1-3) Last Admin: 10/10/17 15:26 Dose: 650 mg Ciprofloxacin (Ciloxan 0.3% Ophth Soln) [address] [facility] Last Admin: 10/13/17 18:08 Dose: 1 drop Clotrimazole (Lotrimin 1%) [address] [facility] Last Admin: 10/13/17 18:11 Dose: 1 applic Ferrous Gluconate (Fergon) [address] [facility] Last Admin: 10/13/17 18:11 Dose: 324 mg Folic Acid (Folic Acid) [address] [facility] Last Admin: 10/13/17 09:14 Dose: 1 mg Cefazolin Sodium/Dextrose (Ancef Iv 2 Gm Duplex) 2 gm in 50 mls @ 100 mls/hr IVPB Q8H [facility] Last Admin: 10/13/17 18:10 Dose: 100 mls/hr Sodium Chloride (Sodium Chloride 0.9%) 1,000 mls @ 100 mls/hr IV .Q10H [facility] Last Admin: 10/13/17 18:12 Dose: 100 mls/hr Ketoconazole (Nizoral) [address] [facility] Last Admin: 10/13/17 18:12 Dose: 1 applic Lorazepam (Ativan) 1 mg IVP Q4H PRN PRN Reason: Symptoms of alcohol withdrawl Last Admin: 10/05/17 06:37 Dose: 1 mg Magnesium Oxide (Mag-Ox) [address] [facility] Last Admin: 10/13/17 18:10 Dose: 400 mg Multivitamins (Hexavitamin) [address] [facility] Last Admin: 10/13/17 09:13 Dose: 1 tab Oseltamivir Phosphate (Tamiflu Cap) 75 mg PO BID [facility] Stop: 10/16/17 18:34 Last Admin: 10/13/17 18:10 Dose: 75 mg Pantoprazole Sodium (Protonix Ec Tab) 40 mg PO Q12H [facility] Last Admin: 10/13/17 18:10 Dose: 40 mg Thiamine HCl (Vitamin B1 Tab) [address] [facility] Last Admin: 10/13/17 09:13 Dose: 100 mg - Labs Labs: 10/13/17 08:23 10/13/17 08:23 PT 14.1 SECONDS (9.7-12.2) H 10/02/17 20:24 INR 1.3 10/02/17 20:24 APTT 25 SECONDS (21-34) 10/02/17 20:24 Assessment and Plan (1) Alcohol abuse Status: Acute (2) Anemia Status: Acute (3) Conjunctivitis Status: Acute (4) Leukocytosis Status: Acute (5) Severe anemia Status: Acute (6) Skin disease, fungal Status: Acute (7) Alcohol withdrawal Status: Acute
[2017-10-14] MEDS: ceFAZolin IV 2 gm in Dextrose 2 GM/50 ML BAG IVPB SCH ×3 (01:59→18:00)
[2017-10-14] MEDS: Ciprofloxacin 0.3% OPTH SOLN OU SCH ×3 (01:59→17:44)
[2017-10-14] MEDS: Sodium Chloride 0.9% 1,000 ML IV SCH ×2 (05:37→15:00)
[2017-10-14] MEDS: Pantoprazole 40 mg EC Tab PO SCH ×2 (05:38→17:44)
[2017-10-14 07:58] LABS: BASO # 0.1 K/uL (0.0-0.2); BASO % 1.5 % (0.0-2.0); EOS # 0.5 K/uL (0.0-0.7); EOS % 5.5 % (0.0-4.0); LYMPH # 1.2 K/uL (1.0-4.3); LYMPH % 12.8 % (20.0-40.0); MEAN CELL VOLUME 85.4 fL (80.0-94.0); MEAN CORPUSCULAR HEMOGLOBIN 30.5 pg (27.0-31.0); MEAN CORPUSCULAR HGB CONC 35.7 g/dL (33.0-37.0); MEAN PLATELET VOLUME 6.5 fL (7.2-11.7); MONO % 10.7 % (0.0-10.0); NEUT # 6.5 K/uL (1.8-7.0); NEUT % 69.5 % (50.0-75.0); NRBC % 0.1 % (0.0-2.0); RBC 3.29 Mil/uL (4.40-5.90); RED CELL DISTRIBUTION WIDTH 15.4 % (11.5-14.5); WHITE BLOOD COUNT 9.3 K/uL (4.8-10.8)
[2017-10-14 08:22] LABS: ALB/GLOB RATIO 0.9 (1.0-2.1); ALBUMIN 3.4 g/dL (3.5-5.0); ALT/SGPT 10 U/L (21-72); AST/SGOT 38 U/L (17-59); BLOOD UREA NITROGEN 10 mg/dL (9-20); CALCIUM 9.3 mg/dl (8.6-10.4); GFR AFRICAN-AMERICAN > 60; GFR NON-AFRICAN AMERICAN > 60
[2017-10-14] MEDS: Magnesium Oxide 400 mg Tab UD PO SCH ×2 (09:51→17:59)
[2017-10-14] MEDS: Multiple Vitamins Tab PO SCH (09:52)
[2017-10-14] MEDS: Clotrimazole 1% Cream(30 gm) TOP SCH ×2 (09:52→17:46)
--- NOTE | 2017-10-14 11:50 | CP.PCM.PN ---
Subjective - Date & Time of Evaluation Date of Evaluation: 10/14/17 Time of Evaluation: 11:50 - Subjective Subjective: Follow up Nephrology Consultation: Assessment: Stable Hyponatremia likely due to chronic Etoh intake and low solute intake. also with high urine Na and osmol: suggests SIADH status chronic sys CHF Anemia, hypomagnesemia Chronic Etoh abuse MSSA Bacteremia Influenza Plan no need for hypertonic saline. avoid correction in serum Na > 6-8 meq/24 hrs oral fluid restriction to 1200 mL/day supplement electrolytes as needed Glycemic control antibiotics as per ID Heme following for anemia management. continue with iron supplement as MVI as ordered. recommend screening colonoscopy once stable pt advised to abstain from etoh CHF management as per primary team Further work up/management as per primary team Thanks for allowing me to participate in care of your patient. Will follow patient with you. Please call if any Qs Dr Yusuf Saleem Office: [phone] HPI: Pt is a 62 M with hx of chronic Etoh abuse and smoker presented with complaints of eye discharge, feeling sick, found to have severe anemia, influenza and MSSA Bacteremia. Renal consult for Hyponatremia. pt feels sick but no SOB. not on psych meds or thiazide. denies drinking excess water. non smoker ROS: Cardiovascular: No chest pain. Pulmonary: No shortness of breath but c/o cough Gastrointestinal: denies abdominal pain No nausea. No vomiting. no further loose stool Genitourinary: No pain while urinating. Denies blood in urine. All other negative Physical Examination: General Appearance: Comfortable, in no acute respiratory distress, co-operative . Vitals reviewed and noted as below Head; Atraumatic, normocephalic ENT: no ulcers no thrush. Tongue is midline. Oropharynx: no rash or ulcers. EYES: Pupils are equal, round and reactive to light accommodation. Eye muscles and extraocular movement intact. Sclera is anicteric. Neck; supple no lymphadenopathy, no thyromegaly or bruit Lungs: Normal respiratory rate/effort. Breath sounds bilateral equal and clear Heart: Increased rate. s1s2 normal. No rub or gallop. Extremities: no edema. No varicose veins Neurological: Patient is alert, awake and oriented to person, place and time. No focal deficit. Strength bilateral appropriate and equal Skin: Warm and dry. Normal turgor. No rash. Palpitation: Normal elasticity for age Abdomen: Abdomen is soft. Bowel sounds +. There is no abdominal tenderness, no guarding/rigidity no organomegaly Psych: limited insight and flat affect/mood MSK: no joint tenderness or swelling. Digits and nails normal, no deformity : kidney or bladder not palpable Labs/imaging reviewed. Past medical history, past surgical history, family history, social history, allergy reviewed and noted as below Family hx: no hx of CKD. Rest non-contributory echo: mild to moderate reduced LVEF Objective - Vital Signs/Intake and Output Vital Signs (last 24 hours): Temp Pulse Resp BP Pulse Ox 98.4 F 111 H 18 134/75 99 10/14/17 07:13 10/14/17 07:13 10/14/17 07:13 10/14/17 07:13 10/14/17 07:13 Intake and Output: 10/14/17 10/14/17 06:59 18:59 Output Total 400 Balance -400 - Medications Medications: Current Medications Acetaminophen (Tylenol 325mg Tab) 650 mg PO Q6 PRN PRN Reason: Pain, Mild (1-3) Last Admin: 10/10/17 15:26 Dose: 650 mg Ciprofloxacin (Ciloxan 0.3% Oph Soln) 1 drop OU Q8H [facility] Last Admin: 10/14/17 09:52 Dose: 1 drop Clotrimazole (Lotrimin 1%) 0 gm TOP BID [facility] Last Admin: 10/14/17 09:52 Dose: 1 applic Ferrous Gluconate (Fergon) 324 mg PO TID [facility] Last Admin: 10/14/17 09:51 Dose: 324 mg Folic Acid (Folic Acid) 1 mg PO DAILY [facility] Last Admin: 10/14/17 09:52 Dose: 1 mg Cefazolin Sodium/Dextrose (Ancef Iv 2 Gm Duplex) 2 gm in 50 mls @ 100 mls/hr IVPB Q8H [facility] Last Admin: 10/14/17 10:00 Dose: 100 mls/hr Sodium Chloride (Sodium Chloride 0.9%) 1,000 mls @ 100 mls/hr IV .Q10H [facility] Last Admin: 10/14/17 05:37 Dose: 100 mls/hr Ketoconazole (Nizoral) 5 gm TOP BID [facility] Last Admin: 02/22/18 09:52 Dose: 1 applic Lorazepam (Ativan) 1 mg IVP Q4H PRN PRN Reason: Symptoms of alcohol withdrawl Last Admin: 10/05/17 06:37 Dose: 1 mg Magnesium Oxide (Mag-Ox) 400 mg PO BID [facility] Last Admin: 10/14/17 09:51 Dose: 400 mg Multivitamins (Hexavitamin) 1 tab PO DAILY [facility] Last Admin: 10/14/17 09:52 Dose: 1 tab Oseltamivir Phosphate (Tamiflu Cap) 75 mg PO BID [facility] Stop: 10/16/17 18:34 Last Admin: 10/14/17 09:52 Dose: 75 mg Pantoprazole Sodium (Protonix Ec Tab) 40 mg PO Q12H [facility] Last Admin: 10/14/17 05:38 Dose: 40 mg Thiamine HCl (Vitamin B1 Tab) 100 mg PO DAILY [facility] Last Admin: 10/14/17 09:51 Dose: 100 mg - Labs Labs: 10/14/17 07:47 10/14/17 07:47 PT 14.1 SECONDS (9.7-12.2) H 10/02/17 20:24 INR 1.3 10/02/17 20:24 APTT 25 SECONDS (21-34) 10/02/17 20:24
--- NOTE | 2017-10-14 11:51 | CP.PCM.PN ---
Subjective - Date & Time of Evaluation Date of Evaluation: 10/14/17 Time of Evaluation: 11:45 - Subjective Subjective: Progress note dictated # [id number] Objective - Vital Signs/Intake and Output Vital Signs (last 24 hours): Temp Pulse Resp BP Pulse Ox 98.4 F 111 H 18 134/75 99 10/14/17 07:13 10/14/17 07:13 10/14/17 07:13 10/14/17 07:13 10/14/17 07:13 Intake and Output: 10/14/17 10/14/17 06:59 18:59 Output Total 400 Balance -400 - Medications Medications: Current Medications Acetaminophen (Tylenol 325mg Tab) 650 mg PO Q6 PRN PRN Reason: Pain, Mild (1-3) Last Admin: 10/10/17 15:26 Dose: 650 mg Ciprofloxacin (Ciloxan 0.3% Ophth Soln) 1 drop OU Q8H [facility] Last Admin: 10/14/17 09:52 Dose: 1 drop Clotrimazole (Lotrimin 1%) 0 gm TOP BID [facility] Last Admin: 10/14/17 09:52 Dose: 1 applic Ferrous Gluconate (Fergon) 324 mg PO TID [facility] Last Admin: 10/14/17 09:51 Dose: 324 mg Folic Acid (Folic Acid) 1 mg PO DAILY [facility] Last Admin: 10/14/17 09:52 Dose: 1 mg Cefazolin Sodium/Dextrose (Ancef Iv 2 Gm Duplex) 2 gm in 50 mls @ 100 mls/hr IVPB Q8H [facility] Last Admin: 10/14/17 10:00 Dose: 100 mls/hr Sodium Chloride (Sodium Chloride 0.9%) 1,000 mls @ 100 mls/hr IV .Q10H [facility] Last Admin: 10/14/17 05:37 Dose: 100 mls/hr Ketoconazole (Nizoral) 5 gm TOP BID [facility] Last Admin: 10/14/17 09:52 Dose: 1 applic Lorazepam (Ativan) 1 mg IVP Q4H PRN PRN Reason: Symptoms of alcohol withdrawl Last Admin: 10/05/17 06:37 Dose: 1 mg Magnesium Oxide (Mag-Ox) 400 mg PO BID [facility] Last Admin: 10/14/17 09:51 Dose: 400 mg Multivitamins (Hexavitamin) 1 tab PO DAILY [facility] Last Admin: 10/14/17 09:52 Dose: 1 tab Oseltamivir Phosphate (Tamiflu Cap) 75 mg PO BID [facility] Stop: 10/16/17 18:34 Last Admin: 10/14/17 09:52 Dose: 75 mg Pantoprazole Sodium (Protonix Ec Tab) 40 mg PO Q12H [facility] Last Admin: 10/14/17 05:38 Dose: 40 mg Thiamine HCl (Vitamin B1 Tab) 100 mg PO DAILY [facility] Last Admin: 10/14/17 09:51 Dose: 100 mg - Labs Labs: 10/14/17 07:47 10/14/17 07:47 PT 14.1 SECONDS (9.7-12.2) H 10/02/17 20:24 INR 1.3 10/02/17 20:24 APTT 25 SECONDS (21-34) 10/02/17 20:24
--- NOTE | 2017-10-14 14:19 | CP.PCM.PN ---
Subjective - Date & Time of Evaluation Date of Evaluation: 10/13/17 Time of Evaluation: 20:00 - Subjective Subjective: Feeling better Objective - Vital Signs/Intake and Output Vital Signs (last 24 hours): Temp Pulse Resp BP Pulse Ox 98.4 F 111 H 18 134/75 99 10/14/17 07:13 10/14/17 07:13 10/14/17 07:13 10/14/17 07:13 10/14/17 07:13 Intake and Output: 10/14/17 10/14/17 06:59 18:59 Output Total 400 Balance -400 - Medications Medications: Current Medications Acetaminophen (Tylenol 325mg Tab) 650 mg PO Q6 PRN PRN Reason: Pain, Mild (1-3) Last Admin: 10/10/17 15:26 Dose: 650 mg Ciprofloxacin (Ciloxan 0.3% Ophth Soln) 1 drop OU Q8H [facility] Last Admin: 10/14/17 09:52 Dose: 1 drop Clotrimazole (Lotrimin 1%) 0 gm TOP BID [facility] Last Admin: 10/14/17 09:52 Dose: 1 applic Ferrous Gluconate (Fergon) 324 mg PO TID [facility] Last Admin: 10/14/17 09:51 Dose: 324 mg Folic Acid (Folic Acid) 1 mg PO DAILY [facility] Last Admin: 10/14/17 09:52 Dose: 1 mg Cefazolin Sodium/Dextrose (Ancef Iv 2 Gm Duplex) 2 gm in 50 mls @ 100 mls/hr IVPB Q8H [facility] Last Admin: 10/14/17 10:00 Dose: 100 mls/hr Sodium Chloride (Sodium Chloride 0.9%) 1,000 mls @ 100 mls/hr IV .Q10H [facility] Last Admin: 10/14/17 05:37 Dose: 100 mls/hr Ketoconazole (Nizoral) 5 gm TOP BID [facility] Last Admin: 10/14/17 09:52 Dose: 1 applic Lorazepam (Ativan) 1 mg IVP Q4H PRN PRN Reason: Symptoms of alcohol withdrawl Last Admin: 10/05/17 06:37 Dose: 1 mg Magnesium Oxide (Mag-Ox) 400 mg PO BID [facility] Last Admin: 10/14/17 09:51 Dose: 400 mg Multivitamins (Hexavitamin) 1 tab PO DAILY [facility] Last Admin: 10/14/17 09:52 Dose: 1 tab Oseltamivir Phosphate (Tamiflu Cap) 75 mg PO BID [facility] Stop: 10/16/17 18:34 Last Admin: 10/14/17 09:52 Dose: 75 mg Pantoprazole Sodium (Protonix Ec Tab) 40 mg PO Q12H [facility] Last Admin: 10/14/17 05:38 Dose: 40 mg Thiamine HCl (Vitamin B1 Tab) 100 mg PO DAILY [facility] Last Admin: 10/14/17 09:51 Dose: 100 mg - Labs Labs: 10/14/17 07:47 10/14/17 07:47 PT 14.1 SECONDS (9.7-12.2) H 10/02/17 20:24 INR 1.3 10/02/17 20:24 APTT 25 SECONDS (21-34) 10/02/17 20:24 - Head Exam Head Exam: ATRAUMATIC - Eye Exam Eye Exam: Normal appearance - ENT Exam ENT Exam: Mucous Membranes Dry - Respiratory Exam Respiratory Exam: NORMAL BREATHING PATTERN - Cardiovascular Exam Cardiovascular Exam: +S1, +S2 - GI/Abdominal Exam GI & Abdominal Exam: Normal Bowel Sounds Assessment and Plan (1) Anemia Assessment & Plan: iron and b12 deficiency; s/p supplementation on oral iron and folate Status: Acute
--- NOTE | 2017-10-14 14:20 | CP.PCM.PN ---
Subjective - Date & Time of Evaluation Date of Evaluation: 10/14/17 Time of Evaluation: 13:00 - Subjective Subjective: Feeling better Objective - Vital Signs/Intake and Output Vital Signs (last 24 hours): Temp Pulse Resp BP Pulse Ox 98.4 F 111 H 18 134/75 99 10/14/17 07:13 10/14/17 07:13 10/14/17 07:13 10/14/17 07:13 10/14/17 07:13 Intake and Output: 10/14/17 10/14/17 06:59 18:59 Output Total 400 Balance -400 - Medications Medications: Current Medications Acetaminophen (Tylenol 325mg Tab) 650 mg PO Q6 PRN PRN Reason: Pain, Mild (1-3) Last Admin: 10/10/17 15:26 Dose: 650 mg Ciprofloxacin (Ciloxan 0.3% Ophth Soln) 1 drop OU Q8H [facility] Last Admin: 10/14/17 09:52 Dose: 1 drop Clotrimazole (Lotrimin 1%) 0 gm TOP BID [facility] Last Admin: 10/14/17 09:52 Dose: 1 applic Ferrous Gluconate (Fergon) 324 mg PO TID [facility] Last Admin: 10/14/17 09:51 Dose: 324 mg Folic Acid (Folic Acid) 1 mg PO DAILY [facility] Last Admin: 10/14/17 09:52 Dose: 1 mg Cefazolin Sodium/Dextrose (Ancef Iv 2 Gm Duplex) 2 gm in 50 mls @ 100 mls/hr IVPB Q8H [facility] Last Admin: 10/14/17 10:00 Dose: 100 mls/hr Sodium Chloride (Sodium Chloride 0.9%) 1,000 mls @ 100 mls/hr IV .Q10H [facility] Last Admin: 10/14/17 05:37 Dose: 100 mls/hr Ketoconazole (Nizoral) 5 gm TOP BID [facility] Last Admin: 10/14/17 09:52 Dose: 1 applic Lorazepam (Ativan) 1 mg IVP Q4H PRN PRN Reason: Symptoms of alcohol withdrawl Last Admin: 10/05/17 06:37 Dose: 1 mg Magnesium Oxide (Mag-Ox) 400 mg PO BID [facility] Last Admin: 10/14/17 09:51 Dose: 400 mg Multivitamins (Hexavitamin) 1 tab PO DAILY [facility] Last Admin: 10/14/17 09:52 Dose: 1 tab Oseltamivir Phosphate (Tamiflu Cap) 75 mg PO BID [facility] Stop: 10/16/17 18:34 Last Admin: 10/14/17 09:52 Dose: 75 mg Pantoprazole Sodium (Protonix Ec Tab) 40 mg PO Q12H [facility] Last Admin: 10/14/17 05:38 Dose: 40 mg Thiamine HCl (Vitamin B1 Tab) 100 mg PO DAILY [facility] Last Admin: 10/14/17 09:51 Dose: 100 mg - Labs Labs: 10/14/17 07:47 10/14/17 07:47 PT 14.1 SECONDS (9.7-12.2) H 10/02/17 20:24 INR 1.3 10/02/17 20:24 APTT 25 SECONDS (21-34) 10/02/17 20:24 - Head Exam Head Exam: ATRAUMATIC - Eye Exam Eye Exam: Normal appearance - ENT Exam ENT Exam: Mucous Membranes Dry - Respiratory Exam Respiratory Exam: NORMAL BREATHING PATTERN - Cardiovascular Exam Cardiovascular Exam: +S1, +S2 - GI/Abdominal Exam GI & Abdominal Exam: Normal Bowel Sounds Assessment and Plan (1) Anemia Assessment & Plan: iron and b12 deficiency; s/p supplementation on oral folic acid and iron Status: Acute
--- NOTE | 2017-10-14 18:25 | CP.PCM.PN ---
Subjective - Date & Time of Evaluation Date of Evaluation: 10/14/17 Time of Evaluation: 09:00 - Subjective Subjective: no fever slow progress cont iv rx ?[facility] Objective - Vital Signs/Intake and Output Vital Signs (last 24 hours): Temp Pulse Resp BP Pulse Ox 98.8 F 110 H 20 103/60 95 10/14/17 15:00 10/14/17 15:00 10/14/17 15:00 10/14/17 15:00 10/14/17 15:00 Intake and Output: 10/14/17 10/14/17 06:59 18:59 Output Total 400 Balance -400 - Medications Medications: Current Medications Acetaminophen (Tylenol 325mg Tab) 650 mg PO Q6 PRN PRN Reason: Pain, Mild (1-3) Last Admin: 10/10/17 15:26 Dose: 650 mg Ciprofloxacin (Ciloxan 0.3% Ophth Soln) 1 drop OU Q8H [facility] Last Admin: 10/14/17 17:44 Dose: 1 drop Clotrimazole (Lotrimin 1%) 0 gm TOP BID [facility] Last Admin: 10/14/17 17:46 Dose: 1 applic Ferrous Gluconate (Fergon) 324 mg PO TID [facility] Last Admin: 10/14/17 17:44 Dose: 324 mg Folic Acid (Folic Acid) 1 mg PO DAILY [facility] Last Admin: 10/14/17 09:52 Dose: 1 mg Cefazolin Sodium/Dextrose (Ancef Iv 2 Gm Duplex) 2 gm in 50 mls @ 100 mls/hr IVPB Q8H [facility] Last Admin: 10/14/17 10:00 Dose: 100 mls/hr Sodium Chloride (Sodium Chloride 0.9%) 1,000 mls @ 100 mls/hr IV .Q10H [facility] Last Admin: 10/14/17 15:00 Dose: Not Given Ketoconazole (Nizoral) 5 gm TOP BID [facility] Last Admin: 10/14/17 17:47 Dose: 1 applic Lorazepam (Ativan) 1 mg IVP Q4H PRN PRN Reason: Symptoms of alcohol withdrawl Last Admin: 10/05/17 06:37 Dose: 1 mg Magnesium Oxide (Mag-Ox) 400 mg PO BID [facility] Last Admin: 10/14/17 17:59 Dose: 400 mg Multivitamins (Hexavitamin) 1 tab PO DAILY [facility] Last Admin: 10/14/17 09:52 Dose: 1 tab Oseltamivir Phosphate (Tamiflu Cap) 75 mg PO BID [facility] Stop: 10/16/17 18:34 Last Admin: 10/14/17 17:44 Dose: 75 mg Pantoprazole Sodium (Protonix Ec Tab) 40 mg PO Q12H [facility] Last Admin: 10/14/17 17:44 Dose: 40 mg Thiamine HCl (Vitamin B1 Tab) 100 mg PO DAILY [facility] Last Admin: 10/14/17 09:51 Dose: 100 mg - Labs Labs: 10/14/17 07:47 10/14/17 07:47 PT 14.1 SECONDS (9.7-12.2) H 10/02/17 20:24 INR 1.3 10/02/17 20:24 APTT 25 SECONDS (21-34) 10/02/17 20:24 - Constitutional Appears: Non-toxic - Head Exam Head Exam: NORMOCEPHALIC - Eye Exam Eye Exam: absent: Scleral icterus - ENT Exam ENT Exam: Mucous Membranes Dry - Neck Exam Neck Exam: absent: Lymphadenopathy - Respiratory Exam Respiratory Exam: Decreased Breath Sounds - Cardiovascular Exam Cardiovascular Exam: REGULAR RHYTHM - GI/Abdominal Exam GI & Abdominal Exam: Distended - Rectal Exam Rectal Exam: Deferred - Exam Exam: NORMAL INSPECTION Assessment and Plan (1) Alcohol abuse Status: Acute (2) Anemia Status: Acute (3) Conjunctivitis Status: Acute (4) Leukocytosis Status: Acute (5) Severe anemia Status: Acute (6) Skin disease, fungal Status: Acute (7) Alcohol withdrawal Status: Acute - Assessment and Plan (Free Text) Assessment: MSSA sepsis consider [facility]
[2017-10-15] MEDS: Ciprofloxacin 0.3% OPTH SOLN OU SCH ×3 (00:29→18:18)
[2017-10-15] MEDS: ceFAZolin IV 2 gm in Dextrose 2 GM/50 ML BAG IVPB SCH ×3 (02:23→18:14)
[2017-10-15] MEDS: Pantoprazole 40 mg EC Tab PO SCH ×2 (05:48→18:12)
[2017-10-15] MEDS: Sodium Chloride 0.9% 1,000 ML IV SCH ×2 (05:50→10:30)
--- NOTE | 2017-10-15 10:27 | CP.PCM.PN ---
Subjective - Date & Time of Evaluation Date of Evaluation: 10/15/17 Time of Evaluation: 10:30 - Subjective Subjective: Progress note dictated #[id number] Objective - Vital Signs/Intake and Output Vital Signs (last 24 hours): Temp Pulse Resp BP Pulse Ox 98.1 F 104 H 20 127/71 99 10/15/17 01:11 10/15/17 01:11 10/15/17 01:11 10/15/17 01:11 10/15/17 01:11 Intake and Output: 10/15/17 10/15/17 06:59 18:59 Output Total 700 Balance -700 - Medications Medications: Current Medications Acetaminophen (Tylenol 325mg Tab) 650 mg PO Q6 PRN PRN Reason: Pain, Mild (1-3) Last Admin: 10/10/17 15:26 Dose: 650 mg Ciprofloxacin (Ciloxan 0.3% Ophth Soln) 1 drop OU Q8H [facility] Last Admin: 10/15/17 00:29 Dose: 1 drop Clotrimazole (Lotrimin 1%) 0 gm TOP BID [facility] Last Admin: 10/14/17 17:46 Dose: 1 applic Ferrous Gluconate (Fergon) 324 mg PO TID [facility] Last Admin: 10/14/17 17:44 Dose: 324 mg Folic Acid (Folic Acid) 1 mg PO DAILY [facility] Last Admin: 10/14/17 09:52 Dose: 1 mg Cefazolin Sodium/Dextrose (Ancef Iv 2 Gm Duplex) 2 gm in 50 mls @ 100 mls/hr IVPB Q8H [facility] Last Admin: 10/15/17 02:23 Dose: 100 mls/hr Sodium Chloride (Sodium Chloride 0.9%) 1,000 mls @ 100 mls/hr IV .Q10H [facility] Last Admin: 10/15/17 05:50 Dose: 100 mls/hr Ketoconazole (Nizoral) 5 gm TOP BID [facility] Last Admin: 10/14/17 17:47 Dose: 1 applic Lorazepam (Ativan) 1 mg IVP Q4H PRN PRN Reason: Symptoms of alcohol withdrawl Last Admin: 10/05/17 06:37 Dose: 1 mg Magnesium Oxide (Mag-Ox) 400 mg PO BID [facility] Last Admin: 10/14/17 17:59 Dose: 400 mg Multivitamins (Hexavitamin) 1 tab PO DAILY [facility] Last Admin: 10/14/17 09:52 Dose: 1 tab Oseltamivir Phosphate (Tamiflu Cap) 75 mg PO BID [facility] Stop: 10/16/17 18:34 Last Admin: 10/14/17 17:44 Dose: 75 mg Pantoprazole Sodium (Protonix Ec Tab) 40 mg PO Q12H [facility] Last Admin: 10/15/17 05:48 Dose: 40 mg Thiamine HCl (Vitamin B1 Tab) 100 mg PO DAILY [facility] Last Admin: 10/14/17 09:51 Dose: 100 mg - Labs Labs: 10/14/17 07:47 10/14/17 07:47 PT 14.1 SECONDS (9.7-12.2) H 10/02/17 20:24 INR 1.3 10/02/17 20:24 APTT 25 SECONDS (21-34) 10/02/17 20:24
--- NOTE | 2017-10-15 11:23 | PN ---
DATE: 10/14/2017. SUBJECTIVE: The patient was seen and examined at bedside. The patient claims that he is feeling better than yesterday. Denies any new complaints, awaiting for possible subacute rehab transfer. PHYSICAL EXAMINATION: GENERAL: A middle -aged male lying in bed in no acute distress. VITAL SIGNS: Blood pressure 103/60, pulse 110, respirations 20, temperature 98.8 degrees Fahrenheit, and O2 sat is 95% on room air. HEENT: Pupils equal, round and reacting to light and accommodation. Extraocular muscles are intact. No icterus. Positive pallor. No oral thrush. No pharyngeal congestion. NECK: Supple. No JVD. LUNGS: Bilateral vesicular breath sounds. No wheezing. No rhonchi. CVS: S1 and S2 present and regular. ABDOMEN: Soft and nontender. Bowel sounds present. No guarding. No rigidity. No rebound tenderness noted. INFORMATICA: Alert, awake and oriented x3. No focal deficits noted. EXTREMITIES: No edema. MEDICATIONS: Include Ancef 2 gm IV q. 8 hours, ciprofloxacin eye drops, Lotrimin topical cream, ferrous gluconate 325 mg p.o. t.i.d., folic acid 1 mg daily, mag oxide 400 mg b.i.d., multivitamin 1 tab daily, Tamiflu 75 mg p.o. b.i.d., Protonix 40 mg q. 12 hours, IV fluids normal saline at 100 mL an hour, thiamine 100 mg daily. LABORATORY DATA: WBC 9.3, hemoglobin 10, hematocrit 28.1, platelets 555. Sodium 133, potassium 4.1, chloride 97, bicarb 27, BUN 10, creatinine 0.3, glucose 90, calcium 9.3. Stool occult blood negative. ASSESSMENT AND PLAN: Middle-aged male with history of ethyl alcohol abuse, ethyl alcohol intoxication, anemia, status post EGD, consistent with gastritis, status post 2 units of PRBC transfusion, iron deficiency anemia, B12 deficiency anemia, methicillin-susceptible Staphylococcus aureus bacteremia, flu antibody positive, high titers, status post multiple electrolyte abnormalities, status post hyponatremia on Ancef 2 gm IV q. 8 hours for 14 days as per ID recommendation. Awaiting for subacute rehab placement. Continue with current medication. Daina Wooten MD [facility] # [id number]
[2017-10-15] MEDS: Multiple Vitamins Tab PO SCH (11:34)
--- NOTE | 2017-10-15 12:55 | CP.PCM.PN ---
Subjective - Date & Time of Evaluation Date of Evaluation: 10/15/17 Time of Evaluation: 12:54 - Subjective Subjective: Follow up Nephrology Consultation: Assessment: Stable Hyponatremia likely due to chronic Etoh intake and low solute intake. also with high urine Na and osmol: suggests SIADH status chronic sys CHF Anemia, hypomagnesemia Chronic Etoh abuse MSSA Bacteremia Influenza Plan no need for hypertonic saline. avoid correction in serum Na > 6-8 meq/24 hrs oral fluid restriction to 1200 mL/day supplement electrolytes as needed Glycemic control antibiotics as per ID Heme following for anemia management. continue with iron supplement as MVI as ordered. recommend screening colonoscopy once stable pt advised to abstain from etoh CHF management as per primary team Further work up/management as per primary team pt stable for d/c from renal perspective when planned, with outpt renal follow up Thanks for allowing me to participate in care of your patient. Please call if any Qs. d/w team Dr Yusuf Saleem Office: [phone] HPI: Pt is a 62 M with hx of chronic Etoh abuse and smoker presented with complaints of eye discharge, feeling sick, found to have severe anemia, influenza and MSSA Bacteremia. Renal consult for Hyponatremia. pt feels sick but no SOB. not on psych meds or thiazide. denies drinking excess water. non smoker ROS: Cardiovascular: No chest pain. Pulmonary: No shortness of breath improved cough Gastrointestinal: denies abdominal pain No nausea. No vomiting. no further loose stool Genitourinary: No pain while urinating. Denies blood in urine. All other negative Physical Examination: General Appearance: Comfortable, in no acute respiratory distress, co-operative . Vitals reviewed and noted as below Head; Atraumatic, normocephalic ENT: no ulcers no thrush. Tongue is midline. Oropharynx: no rash or ulcers. EYES: Pupils are equal, round and reactive to light accommodation. Eye muscles and extraocular movement intact. Sclera is anicteric. Neck; supple no lymphadenopathy, no thyromegaly or bruit Lungs: Normal respiratory rate/effort. Breath sounds bilateral equal and clear Heart: Increased rate. s1s2 normal. No rub or gallop. Extremities: no edema. No varicose veins Neurological: Patient is alert, awake and oriented to person, place and time. No focal deficit. Strength bilateral appropriate and equal Skin: Warm and dry. Normal turgor. No rash. Palpitation: Normal elasticity for age Abdomen: Abdomen is soft. Bowel sounds +. There is no abdominal tenderness, no guarding/rigidity no organomegaly Psych: limited insight and flat affect/mood MSK: no joint tenderness or swelling. Digits and nails normal, no deformity : kidney or bladder not palpable Labs/imaging reviewed. Past medical history, past surgical history, family history, social history, allergy reviewed and noted as below Family hx: no hx of CKD. Rest non-contributory echo: mild to moderate reduced LVEF Objective - Vital Signs/Intake and Output Vital Signs (last 24 hours): Temp Pulse Resp BP Pulse Ox 98.1 F 104 H 20 127/71 99 10/15/17 01:11 10/15/17 01:11 10/15/17 01:11 10/15/17 01:11 10/15/17 01:11 Intake and Output: 10/15/17 10/15/17 06:59 18:59 Output Total 700 Balance -700 - Medications Medications: Current Medications Acetaminophen (Tylenol 325mg Tab) 650 mg PO Q6 PRN PRN Reason: Pain, Mild (1-3) Last Admin: 10/10/17 15:26 Dose: 650 mg Ciprofloxacin (Ciloxan 0.3% Oph Soln) 1 drop OU Q8H [facility] Last Admin: 10/15/17 11:35 Dose: 1 drop Clotrimazole (Lotrimin 1%) 0 gm TOP BID [facility] Last Admin: 10/14/17 17:46 Dose: 1 applic Ferrous Gluconate (Fergon) 324 mg PO TID [facility] Last Admin: 10/15/17 11:35 Dose: 324 mg Folic Acid (Folic Acid) 1 mg PO DAILY [facility] Last Admin: 10/14/17 09:52 Dose: 1 mg Cefazolin Sodium/Dextrose (Ancef Iv 2 Gm Duplex) 2 gm in 50 mls @ 100 mls/hr IVPB Q8H [facility] Last Admin: 10/15/17 02:23 Dose: 100 mls/hr Sodium Chloride (Sodium Chloride 0.9%) 1,000 mls @ 100 mls/hr IV .Q10H [facility] Last Admin: 10/15/17 05:50 Dose: 100 mls/hr Ketoconazole (Nizoral) 5 gm TOP BID [facility] Last Admin: 10/15/17 11:37 Dose: 1 applic Lorazepam (Ativan) 1 mg IVP Q4H PRN PRN Reason: Symptoms of alcohol withdrawl Last Admin: 10/05/17 06:37 Dose: 1 mg Magnesium Oxide (Mag-Ox) 400 mg PO BID [facility] Last Admin: 10/14/17 17:59 Dose: 400 mg Multivitamins (Hexavitamin) 1 tab PO DAILY [facility] Last Admin: 10/15/17 11:34 Dose: 1 tab Oseltamivir Phosphate (Tamiflu Cap) 75 mg PO BID [facility] Stop: 10/16/17 18:34 Last Admin: 10/15/17 11:34 Dose: 75 mg Pantoprazole Sodium (Protonix Ec Tab) 40 mg PO Q12H [facility] Last Admin: 10/15/17 05:48 Dose: 40 mg Thiamine HCl (Vitamin B1 Tab) 100 mg PO DAILY [facility] Last Admin: 10/15/17 11:33 Dose: 100 mg - Labs Labs: 10/14/17 07:47 10/14/17 07:47 PT 14.1 SECONDS (9.7-12.2) H 10/02/17 20:24 INR 1.3 10/02/17 20:24 APTT 25 SECONDS (21-34) 10/02/17 20:24
[2017-10-15] MEDS: Magnesium Oxide 400 mg Tab UD PO SCH ×2 (13:56→18:04)
[2017-10-15] MEDS: Clotrimazole 1% Cream(30 gm) TOP SCH ×2 (16:30→18:06)
--- NOTE | 2017-10-15 16:44 | RAD ---
PROCEDURE: CHEST RADIOGRAPH, 1 VIEW HISTORY: PICC re-insertion COMPARISON: 10/13/2017 FINDINGS: LUNGS: Clear. PLEURA: No pneumothorax or pleural fluid seen. CARDIOVASCULAR: Normal heart size. Right PICC catheter tip noted at the cavoatrial junction. OSSEOUS STRUCTURES: No significant abnormalities. VISUALIZED UPPER ABDOMEN: Normal. OTHER FINDINGS: None. IMPRESSION: Right PICC catheter tip at cavoatrial junction. No infiltrate
--- NOTE | 2017-10-15 20:58 | PN ---
DATE: 10/15/2017. SUBJECTIVE: The patient was seen and examined at bedside. The patient is feeling much better. Denies any new complaints. PHYSICAL EXAMINATION: GENERAL: A middle -aged male lying in bed in no acute distress. VITAL SIGNS: Blood pressure 127/71, pulse 104, respirations 20, temperature 98.1 degrees Fahrenheit, and O2 sat is 99% on room air. HEENT: Pupils equal, round and reacting to light and accommodation. Extraocular muscles are intact. No icterus. Positive pallor. No oral thrush. No pharyngeal congestion. NECK: Supple. No JVD. LUNGS: Bilateral vesicular breath sounds. No wheezing. No rhonchi. CVS: S1 and S2 present, regular. ABDOMEN: Soft and nontender. Bowel sounds present. No guarding. No rigidity. No rebound tenderness noted. WEIGHT CALCULATOR: Alert, awake and oriented x3. No focal deficits noted. EXTREMITIES: No edema. MEDICATIONS: Include Tylenol as needed, Ancef 2 gm IV q. 8 hours, ferrous gluconate 324 mg p.o. t.i.d., folic acid 1 mg p.o. daily, magnesium oxide, multivitamin, Tamiflu, Protonix 40 mg q. 12 hours, thiamine 100 mg daily. ASSESSMENT AND PLAN: Middle-aged male with ethyl alcohol abuse, intoxication, status post Librium therapy, anemia, status post EGD consistent with gastritis, status post PRBC transfusion, iron-deficiency anemia, B12 deficiency anemia, methicillin-susceptible Staphylococcus aureus bacteremia, influenza antibody titers positive, status post electrolyte abnormalities. status post hyponatremia. Awaiting for sub acute rehab placement for prison IV antibiotics. Continue with current therapy. Repeat labs in a.m. Daina Wooten MD
--- NOTE | 2017-10-15 21:56 | CP.PCM.PN ---
Subjective - Date & Time of Evaluation Date of Evaluation: 10/15/17 Time of Evaluation: 12:15 - Subjective Subjective: No complaints PICC line came out Objective - Vital Signs/Intake and Output Vital Signs (last 24 hours): Temp Pulse Resp BP Pulse Ox 98.2 F 115 H 20 134/81 97 10/15/17 16:19 10/15/17 16:19 10/15/17 16:19 10/15/17 16:19 10/15/17 16:19 - Medications Medications: Current Medications Acetaminophen (Tylenol 325mg Tab) 650 mg PO Q6 PRN PRN Reason: Pain, Mild (1-3) Last Admin: 10/10/17 15:26 Dose: 650 mg Ciprofloxacin (Ciloxan 0.3% Ophth Soln) 1 drop OU Q8H [facility] Last Admin: 10/15/17 18:18 Dose: 1 drop Clotrimazole (Lotrimin 1%) 0 gm TOP BID [facility] Last Admin: 10/15/17 18:06 Dose: 1 applic Ferrous Gluconate (Fergon) 324 mg PO TID [facility] Last Admin: 10/15/17 18:06 Dose: Not Given Folic Acid (Folic Acid) 1 mg PO DAILY [facility] Last Admin: 10/15/17 13:56 Dose: 1 mg Cefazolin Sodium/Dextrose (Ancef Iv 2 Gm Duplex) 2 gm in 50 mls @ 100 mls/hr IVPB Q8H [facility] Last Admin: 10/15/17 18:14 Dose: 100 mls/hr Ketoconazole (Nizoral) 5 gm TOP BID [facility] Last Admin: 10/15/17 18:13 Dose: 1 applic Lorazepam (Ativan) 1 mg IVP Q4H PRN PRN Reason: Symptoms of alcohol withdrawl Last Admin: 10/05/17 06:37 Dose: 1 mg Magnesium Oxide (Mag-Ox) 400 mg PO BID [facility] Last Admin: 10/15/17 18:04 Dose: 400 mg Multivitamins (Hexavitamin) 1 tab PO DAILY [facility] Last Admin: 10/15/17 11:34 Dose: 1 tab Oseltamivir Phosphate (Tamiflu Cap) 75 mg PO BID [facility] Stop: 10/16/17 18:34 Last Admin: 10/15/17 18:09 Dose: 75 mg Pantoprazole Sodium (Protonix Ec Tab) 40 mg PO Q12H [facility] Last Admin: 10/15/17 18:12 Dose: 40 mg Thiamine HCl (Vitamin B1 Tab) 100 mg PO DAILY [facility] Last Admin: 10/15/17 11:33 Dose: 100 mg - Labs Labs: 10/14/17 07:47 10/14/17 07:47 PT 14.1 SECONDS (9.7-12.2) H 10/02/17 20:24 INR 1.3 10/02/17 20:24 APTT 25 SECONDS (21-34) 10/02/17 20:24 - Head Exam Head Exam: ATRAUMATIC - Eye Exam Eye Exam: Normal appearance - ENT Exam ENT Exam: Mucous Membranes Dry - Respiratory Exam Respiratory Exam: NORMAL BREATHING PATTERN - Cardiovascular Exam Cardiovascular Exam: +S1, +S2 - GI/Abdominal Exam GI & Abdominal Exam: Normal Bowel Sounds Assessment and Plan (1) Anemia Assessment & Plan: iron and b12 deficiency s/p supplementation Status: Acute
[2017-10-16] MEDS: ceFAZolin IV 2 gm in Dextrose 2 GM/50 ML BAG IVPB SCH ×4 (03:24→18:03)
[2017-10-16] MEDS: Ciprofloxacin 0.3% OPTH SOLN OU SCH ×4 (03:24→18:04)
[2017-10-16] MEDS: Pantoprazole 40 mg EC Tab PO SCH ×2 (06:10→18:05)
[2017-10-16 07:38] LABS: ALB/GLOB RATIO 0.9 (1.0-2.1); ALBUMIN 3.4 g/dL (3.5-5.0); ALT/SGPT 15 U/L (21-72); AST/SGOT 36 U/L (17-59); BLOOD UREA NITROGEN 8 mg/dL (9-20); CALCIUM 8.8 mg/dl (8.6-10.4); GFR AFRICAN-AMERICAN > 60; GFR NON-AFRICAN AMERICAN > 60
[2017-10-16 07:55] LABS: BASO # 0.1 K/uL (0.0-0.2); EOS # 0.5 K/uL (0.0-0.7); EOS % 4.8 % (0.0-4.0); HEMOGLOBIN 9.5 g/dL (12.0-18.0); LYMPH # 1.2 K/uL (1.0-4.3); LYMPH % 12.4 % (20.0-40.0); MEAN CORPUSCULAR HEMOGLOBIN 29.5 pg (27.0-31.0); MEAN CORPUSCULAR HGB CONC 34.8 g/dL (33.0-37.0); MEAN PLATELET VOLUME 6.7 fL (7.2-11.7); MONO # 0.8 K/uL (0.0-0.8); MONO % 8.7 % (0.0-10.0); NEUT # 6.9 K/uL (1.8-7.0); NEUT % 73.1 % (50.0-75.0); RBC 3.22 Mil/uL (4.40-5.90); RED CELL DISTRIBUTION WIDTH 15.6 % (11.5-14.5); WHITE BLOOD COUNT 9.5 K/uL (4.8-10.8)
--- NOTE | 2017-10-16 09:34 | CP.PCM.PN ---
Subjective - Date & Time of Evaluation Date of Evaluation: 10/16/17 Time of Evaluation: 09:30 - Subjective Subjective: Progress note dictated #[id number] Objective - Vital Signs/Intake and Output Vital Signs (last 24 hours): Temp Pulse Resp BP Pulse Ox 98.3 F 114 H 18 109/66 100 10/16/17 08:59 10/16/17 08:59 10/16/17 08:59 10/16/17 08:59 10/16/17 08:59 - Medications Medications: Current Medications Acetaminophen (Tylenol 325mg Tab) 650 mg PO Q6 PRN PRN Reason: Pain, Mild (1-3) Last Admin: 10/10/17 15:26 Dose: 650 mg Ciprofloxacin (Ciloxan 0.3% Ophth Soln) 1 drop OU Q8H [facility] Last Admin: 10/16/17 07:16 Dose: Not Given Clotrimazole (Lotrimin 1%) 0 gm TOP BID [facility] Last Admin: 10/15/17 18:06 Dose: 1 applic Ferrous Gluconate (Fergon) 324 mg PO TID [facility] Last Admin: 10/15/17 18:06 Dose: Not Given Folic Acid (Folic Acid) 1 mg PO DAILY [facility] Last Admin: 10/15/17 13:56 Dose: 1 mg Cefazolin Sodium/Dextrose (Ancef Iv 2 Gm Duplex) 2 gm in 50 mls @ 100 mls/hr IVPB Q8H [facility] Last Admin: 10/16/17 06:10 Dose: 100 mls/hr Ketoconazole (Nizoral) 5 gm TOP BID [facility] Last Admin: 10/15/17 18:13 Dose: 1 applic Lorazepam (Ativan) 1 mg IVP Q4H PRN PRN Reason: Symptoms of alcohol withdrawl Last Admin: 10/05/17 06:37 Dose: 1 mg Magnesium Oxide (Mag-Ox) 400 mg PO BID [facility] Last Admin: 10/15/17 18:04 Dose: 400 mg Multivitamins (Hexavitamin) 1 tab PO DAILY [facility] Last Admin: 10/15/17 11:34 Dose: 1 tab Oseltamivir Phosphate (Tamiflu Cap) 75 mg PO BID [facility] Stop: 10/16/17 18:34 Last Admin: 10/15/17 18:09 Dose: 75 mg Pantoprazole Sodium (Protonix Ec Tab) 40 mg PO Q12H [facility] Last Admin: 10/16/17 06:10 Dose: 40 mg Thiamine HCl (Vitamin B1 Tab) 100 mg PO DAILY [facility] Last Admin: 10/15/17 11:33 Dose: 100 mg - Labs Labs: 10/16/17 07:06 10/16/17 07:06 PT 14.1 SECONDS (9.7-12.2) H 10/02/17 20:24 INR 1.3 10/02/17 20:24 APTT 25 SECONDS (21-34) 10/02/17 20:24
[2017-10-16] MEDS: Clotrimazole 1% Cream(30 gm) TOP SCH ×2 (09:49→18:04)
[2017-10-16] MEDS: Multiple Vitamins Tab PO SCH (09:50)
[2017-10-16] MEDS: Magnesium Oxide 400 mg Tab UD PO SCH ×2 (09:50→18:05)
--- NOTE | 2017-10-16 18:26 | CP.PCM.PN ---
Subjective - Date & Time of Evaluation Date of Evaluation: 10/16/17 Time of Evaluation: 18:24 - Subjective Subjective: renal follow up note Assessment: Stable Hyponatremia likely due to chronic Etoh intake and low solute intake. also with high urine Na and osmol: suggests SIADH status chronic sys CHF Anemia, hypomagnesemia Chronic Etoh abuse MSSA Bacteremia Influenza Plan sodium has been stable, sec to siadh continue free water restriction to 1200 mL/day Glycemic control antibiotics as per ID Heme following for anemia management. continue with iron supplement as MVI as ordered. CHF management as per primary team Physical Examination: General Appearance: Comfortable, in no acute respiratory distress, co-operative . Head; Atraumatic, normocephalic ENT: no ulcers no thrush. Tongue is midline. Oropharynx: no rash or ulcers. EYES:Sclera is anicteric. Neck; supple Lungs: Normal respiratory rate/effort. Breath sounds bilateral equal and clear Heart: Increased rate. s1s2 normal. No rub or gallop. Extremities: no edema. No varicose veins Neurological: Patient is alert, awake and oriented to person, place and time. No focal deficit. Strength bilateral appropriate and equal Skin: Warm and dry. Normal turgor. No rash. Palpitation: Normal elasticity for age Abdomen: Abdomen is soft. Bowel sounds +. There is no abdominal tenderness, no guarding/rigidity no organomegaly Psych: limited insight and flat affect/mood MSK: no joint tenderness or swelling. Digits and nails normal, no deformity Objective - Vital Signs/Intake and Output Vital Signs (last 24 hours): Temp Pulse Resp BP Pulse Ox 98.9 F 112 H 20 101/56 L 100 10/16/17 16:38 10/16/17 16:38 10/16/17 16:38 10/16/17 16:38 10/16/17 16:38 Intake and Output: 10/16/17 10/16/17 06:59 18:59 Intake Total 400 Balance 400 - Medications Medications: Current Medications Acetaminophen (Tylenol 325mg Tab) 650 mg PO Q6 PRN PRN Reason: Pain, Mild (1-3) Last Admin: 10/10/17 15:26 Dose: 650 mg Ciprofloxacin (Ciloxan 0.3% Ophth Soln) 1 drop OU Q8H [facility] Last Admin: 10/16/17 18:04 Dose: 1 drop Clotrimazole (Lotrimin 1%) 0 gm TOP BID [facility] Last Admin: 10/16/17 18:04 Dose: 1 applic Ferrous Gluconate (Fergon) 324 mg PO TID [facility] Last Admin: 10/16/17 18:05 Dose: 324 mg Folic Acid (Folic Acid) 1 mg PO DAILY [facility] Last Admin: 10/16/17 09:50 Dose: 1 mg Cefazolin Sodium/Dextrose (Ancef Iv 2 Gm Duplex) 2 gm in 50 mls @ 100 mls/hr IVPB Q8H [facility] Last Admin: 10/16/17 18:03 Dose: 100 mls/hr Ketoconazole (Nizoral) 5 gm TOP BID [facility] Last Admin: 10/16/17 18:04 Dose: 1 applic Lorazepam (Ativan) 1 mg IVP Q4H PRN PRN Reason: Symptoms of alcohol withdrawl Last Admin: 10/05/17 06:37 Dose: 1 mg Magnesium Oxide (Mag-Ox) 400 mg PO BID [facility] Last Admin: 10/16/17 18:05 Dose: 400 mg Multivitamins (Hexavitamin) 1 tab PO DAILY [facility] Last Admin: 10/16/17 09:50 Dose: 1 tab Oseltamivir Phosphate (Tamiflu Cap) 75 mg PO BID [facility] Stop: 10/16/17 18:34 Last Admin: 10/16/17 18:05 Dose: 75 mg Pantoprazole Sodium (Protonix Ec Tab) 40 mg PO Q12H [facility] Last Admin: 10/16/17 18:05 Dose: 40 mg Thiamine HCl (Vitamin B1 Tab) 100 mg PO DAILY [facility] Last Admin: 10/16/17 11:00 Dose: 100 mg - Labs Labs: 10/16/17 07:06 10/16/17 07:06 PT 14.1 SECONDS (9.7-12.2) H 10/02/17 20:24 INR 1.3 10/02/17 20:24 APTT 25 SECONDS (21-34) 10/02/17 20:24
[2017-10-17] MEDS: Ciprofloxacin 0.3% OPTH SOLN OU SCH ×2 (02:15→09:20)
[2017-10-17] MEDS: ceFAZolin IV 2 gm in Dextrose 2 GM/50 ML BAG IVPB SCH ×3 (02:15→18:01)
--- NOTE | 2017-10-17 03:28 | CP.PCM.PN ---
Subjective - Date & Time of Evaluation Date of Evaluation: 10/16/17 Time of Evaluation: 17:30 - Subjective Subjective: No complaints. Objective - Vital Signs/Intake and Output Vital Signs (last 24 hours): Temp Pulse Resp BP Pulse Ox 98.8 F 121 H 20 126/70 97 10/16/17 23:20 10/16/17 23:20 10/16/17 23:20 10/16/17 23:20 10/16/17 23:20 Intake and Output: 10/16/17 10/17/17 18:59 06:59 Intake Total 400 700 Output Total 600 Balance 400 100 - Medications Medications: Current Medications Acetaminophen (Tylenol 325mg Tab) 650 mg PO Q6 PRN PRN Reason: Pain, Mild (1-3) Last Admin: 10/10/17 15:26 Dose: 650 mg Ciprofloxacin (Ciloxan 0.3% Ophth Soln) 1 drop OU Q8H [facility] Last Admin: 10/17/17 02:15 Dose: 1 drop Clotrimazole (Lotrimin 1%) 0 gm TOP BID [facility] Last Admin: 10/16/17 18:04 Dose: 1 applic Ferrous Gluconate (Fergon) 324 mg PO TID [facility] Last Admin: 10/16/17 18:05 Dose: 324 mg Folic Acid (Folic Acid) 1 mg PO DAILY [facility] Last Admin: 10/16/17 09:50 Dose: 1 mg Cefazolin Sodium/Dextrose (Ancef Iv 2 Gm Duplex) 2 gm in 50 mls @ 100 mls/hr IVPB Q8H [facility] Last Admin: 10/17/17 02:15 Dose: 100 mls/hr Ketoconazole (Nizoral) 5 gm TOP BID [facility] Last Admin: 10/16/17 18:04 Dose: 1 applic Lorazepam (Ativan) 1 mg IVP Q4H PRN PRN Reason: Symptoms of alcohol withdrawl Last Admin: 10/05/17 06:37 Dose: 1 mg Magnesium Oxide (Mag-Ox) 400 mg PO BID [facility] Last Admin: 10/16/17 18:05 Dose: 400 mg Multivitamins (Hexavitamin) 1 tab PO DAILY [facility] Last Admin: 10/16/17 09:50 Dose: 1 tab Pantoprazole Sodium (Protonix Ec Tab) 40 mg PO Q12H [facility] Last Admin: 10/16/17 18:05 Dose: 40 mg Thiamine HCl (Vitamin B1 Tab) 100 mg PO DAILY [facility] Last Admin: 10/16/17 11:00 Dose: 100 mg - Labs Labs: 10/16/17 07:06 10/16/17 07:06 PT 14.1 SECONDS (9.7-12.2) H 10/02/17 20:24 INR 1.3 10/02/17 20:24 APTT 25 SECONDS (21-34) 10/02/17 20:24 - Head Exam Head Exam: ATRAUMATIC - Eye Exam Eye Exam: Normal appearance - ENT Exam ENT Exam: Mucous Membranes Dry - Respiratory Exam Respiratory Exam: NORMAL BREATHING PATTERN - Cardiovascular Exam Cardiovascular Exam: +S1, +S2 - GI/Abdominal Exam GI & Abdominal Exam: Normal Bowel Sounds Assessment and Plan (1) Anemia Assessment & Plan: iron and b12 deficiency; s/p supplementation on PO iron Status: Acute
--- NOTE | 2017-10-17 04:11 | PN ---
DATE: 10/16/2017 SUBJECTIVE: The patient was seen and examined at bedside. The patient claims that he is feeling better. Denies any new complaints even from yesterday noted. The patient pulled out the PICC line and the PICC line was reinserted. PHYSICAL EXAMINATION GENERAL: A middle -aged male, lying in bed, in no acute distress. .VITAL SIGNS: Blood pressure 109/66, pulse 114, respirations 18, temperature 98.3 degrees Fahrenheit, and O2 sat is 100% on room air.. HEENT: Pupils equal, round, and reacting to light and accommodation. Extraocular muscles are intact. No icterus. Positive pallor. No oral thrush. No pharyngeal congestion. NECK: Supple. No JVD. LUNGS: Bilateral vesicular breath sounds. No wheezing. No rhonchi. CVS: S1 and S2 present and regular.. ABDOMEN: Soft and nontender. Bowel sounds present. No guarding. No rigidity. No rebound tenderness noted. TUCK POINTER: Alert, awake and oriented x3. No focal deficits noted. EXTREMITIES: No edema, palpable peripheral pulses. MEDICATIONS: Include Tylenol as needed, Ancef 2 g IV q.8 hours, ferrous gluconate 324 mg p.o. t.i.d., folic acid 1 mg p.o. daily, Ativan as needed, magnesium oxide, multivitamin, Protonix 40 mg q.12 hours, thiamine 100 mg p.o. daily. LABORATORY DATA: Labs from this morning WBC 9.5, hemoglobin 9.5, hematocrit 27.3, platelets 497. Sodium 133, potassium 3.7, chloride 94, bicarbonate 26, BUN 8, creatinine 0.7. Glucose 104, calcium 8.8, AST 36, ALT 15. Alkaline phosphatase 75, total protein 7.1, albumin 3.4. Repeat blood cultures negative. ASSESSMENT AND PLAN: Middle-aged male with status post EtOH abuse, status post intoxication, status post Librium therapy, anemia, status post packed red blood cell blood transfusion, iron-deficiency anemia, B12 deficiency anemia, status post hyponatremia and electrolyte abnormality, methicillin-susceptible Staphylococcus aureus bacteremia, on vermin exterminator IV antibiotics. care home IV antibiotics. Awaiting for sub acute rehab placement for completion of IV antibiotics and for rehab. Follow up with psych social worker for discharge planning. Daina Wooten MD [facility] # [id number]
[2017-10-17] MEDS: Pantoprazole 40 mg EC Tab PO SCH ×2 (05:56→17:58)
[2017-10-17] MEDS: Multiple Vitamins Tab PO SCH (09:20)
[2017-10-17] MEDS: Magnesium Oxide 400 mg Tab UD PO SCH ×2 (09:20→17:58)
[2017-10-17] MEDS: Clotrimazole 1% Cream(30 gm) TOP SCH ×2 (09:21→18:05)
--- NOTE | 2017-10-17 14:55 | CP.PCM.PN ---
Subjective - Date & Time of Evaluation Date of Evaluation: 10/17/17 Time of Evaluation: 09:00 - Subjective Subjective: iv rx in progress Objective - Vital Signs/Intake and Output Vital Signs (last 24 hours): Temp Pulse Resp BP Pulse Ox 98.2 F 100 H 18 119/73 99 10/17/17 09:29 10/17/17 09:29 10/17/17 09:29 10/17/17 09:29 10/17/17 09:29 Intake and Output: 10/17/17 10/17/17 06:59 18:59 Intake Total 700 Output Total 600 Balance 100 - Medications Medications: Current Medications Acetaminophen (Tylenol 325mg Tab) 650 mg PO Q6 PRN PRN Reason: Pain, Mild (1-3) Last Admin: 10/10/17 15:26 Dose: 650 mg Ciprofloxacin (Ciloxan 0.3% Ophth Soln) 1 drop OU Q8H [facility] Last Admin: 10/17/17 09:20 Dose: 1 drop Clotrimazole (Lotrimin 1%) 0 gm TOP BID [facility] Last Admin: 10/17/17 09:21 Dose: 1 applic Ferrous Gluconate (Fergon) 324 mg PO TID [facility] Last Admin: 10/17/17 13:24 Dose: 324 mg Folic Acid (Folic Acid) 1 mg PO DAILY [facility] Last Admin: 10/17/17 09:19 Dose: 1 mg Cefazolin Sodium/Dextrose (Ancef Iv 2 Gm Duplex) 2 gm in 50 mls @ 100 mls/hr IVPB Q8H [facility] Last Admin: 10/17/17 10:43 Dose: 100 mls/hr Ketoconazole (Nizoral) 5 gm TOP BID [facility] Last Admin: 10/17/17 09:21 Dose: 1 applic Lorazepam (Ativan) 1 mg IVP Q4H PRN PRN Reason: Symptoms of alcohol withdrawl Last Admin: 10/05/17 06:37 Dose: 1 mg Magnesium Oxide (Mag-Ox) 400 mg PO BID [facility] Last Admin: 10/17/17 09:20 Dose: 400 mg Multivitamins (Hexavitamin) 1 tab PO DAILY [facility] Last Admin: 10/17/17 09:20 Dose: 1 tab Pantoprazole Sodium (Protonix Ec Tab) 40 mg PO Q12H [facility] Last Admin: 02/25/18 05:56 Dose: 40 mg Thiamine HCl (Vitamin B1 Tab) 100 mg PO DAILY [facility] Last Admin: 10/17/17 09:20 Dose: 100 mg - Labs Labs: 10/16/17 07:06 10/16/17 07:06 PT 14.1 SECONDS (9.7-12.2) H 10/02/17 20:24 INR 1.3 10/02/17 20:24 APTT 25 SECONDS (21-34) 10/02/17 20:24 - Constitutional Appears: Non-toxic, Chronically Ill - Head Exam Head Exam: NORMOCEPHALIC - Eye Exam Eye Exam: PERRL. absent: Scleral icterus - ENT Exam ENT Exam: Mucous Membranes Dry - Neck Exam Neck Exam: absent: Lymphadenopathy - Respiratory Exam Respiratory Exam: Decreased Breath Sounds - Cardiovascular Exam Cardiovascular Exam: REGULAR RHYTHM - GI/Abdominal Exam GI & Abdominal Exam: Distended, Soft - Rectal Exam Rectal Exam: Deferred - Exam Exam: NORMAL INSPECTION - Extremities Exam Extremities Exam: absent: Pedal Edema - Back Exam Back Exam: absent: CVA tenderness (L), CVA tenderness (R) Assessment and Plan (1) Alcohol abuse Status: Acute (2) Anemia Status: Acute (3) Conjunctivitis Status: Acute (4) Leukocytosis Status: Acute (5) Severe anemia Status: Acute (6) Skin disease, fungal Status: Acute (7) Alcohol withdrawal Status: Acute
--- NOTE | 2017-10-17 17:09 | CP.PCM.PN ---
Subjective - Date & Time of Evaluation Date of Evaluation: 10/17/17 Time of Evaluation: 17:10 - Subjective Subjective: Progress note dictated #[id number] Objective - Vital Signs/Intake and Output Vital Signs (last 24 hours): Temp Pulse Resp BP Pulse Ox 98.6 F 108 H 18 102/57 L 99 10/17/17 16:39 10/17/17 16:39 10/17/17 16:39 10/17/17 16:39 10/17/17 16:39 Intake and Output: 10/17/17 10/17/17 06:59 18:59 Intake Total 700 400 Output Total 600 Balance 100 400 - Medications Medications: Current Medications Acetaminophen (Tylenol 325mg Tab) 650 mg PO Q6 PRN PRN Reason: Pain, Mild (1-3) Last Admin: 10/10/17 15:26 Dose: 650 mg Ciprofloxacin (Ciloxan 0.3% Ophth Soln) 1 drop OU Q8H [facility] Last Admin: 10/17/17 09:20 Dose: 1 drop Clotrimazole (Lotrimin 1%) 0 gm TOP BID [facility] Last Admin: 10/17/17 09:21 Dose: 1 applic Ferrous Gluconate (Fergon) 324 mg PO TID [facility] Last Admin: 10/17/17 13:24 Dose: 324 mg Folic Acid (Folic Acid) 1 mg PO DAILY [facility] Last Admin: 10/17/17 09:19 Dose: 1 mg Cefazolin Sodium/Dextrose (Ancef Iv 2 Gm Duplex) 2 gm in 50 mls @ 100 mls/hr IVPB Q8H [facility] Last Admin: 10/17/17 10:43 Dose: 100 mls/hr Ketoconazole (Nizoral) 5 gm TOP BID [facility] Last Admin: 10/17/17 09:21 Dose: 1 applic Lorazepam (Ativan) 1 mg IVP Q4H PRN PRN Reason: Symptoms of alcohol withdrawl Last Admin: 10/05/17 06:37 Dose: 1 mg Magnesium Oxide (Mag-Ox) 400 mg PO BID [facility] Last Admin: 10/17/17 09:20 Dose: 400 mg Multivitamins (Hexavitamin) 1 tab PO DAILY [facility] Last Admin: 10/17/17 09:20 Dose: 1 tab Pantoprazole Sodium (Protonix Ec Tab) 40 mg PO Q12H [facility] Last Admin: 10/17/17 05:56 Dose: 40 mg Thiamine HCl (Vitamin B1 Tab) 100 mg PO DAILY [facility] Last Admin: 10/17/17 09:20 Dose: 100 mg - Labs Labs: 10/16/17 07:06 10/16/17 07:06 PT 14.1 SECONDS (9.7-12.2) H 10/02/17 20:24 INR 1.3 10/02/17 20:24 APTT 25 SECONDS (21-34) 10/02/17 20:24
--- NOTE | 2017-10-17 21:47 | PN ---
DATE: 10/17/2017 SUBJECTIVE: The patient was seen and examined at bedside. The patient is offering no new complaints. Feeling better. Denies any headache, dizziness. Denies any chest pain, shortness of breath, or wheezing. Denies any diarrhea or constipation. All other systems reviewed and were found to be negative. PHYSICAL EXAMINATION: GENERAL: Middle-aged male, lying in bed, in no acute distress. VITAL SIGNS: Blood pressure 102/57, pulse 108, respirations 18, temperature 98.6 degrees Fahrenheit, and O2 sat is 99% on room air. HEENT: Pupils are equal, round and reacting to light and accommodation. No icterus. Positive pallor. No oral thrush. No pharyngeal congestion. NECK: Supple. No JVD. LUNGS: Bilateral vesicular breath sounds. No wheezing. No rhonchi. CVS: S1 and S2 present and regular. ABDOMEN: Soft and nontender. Bowel sounds present. No guarding. No rigidity. No rebound tenderness noted. MODEL AND MOLD MAKER: Alert, awake, and oriented x3. No focal deficits noted. EXTREMITIES: No edema. MEDICATIONS: Include Tylenol as needed, Ancef 2 g IV q.8 hours, Lotrimin cream, ferrous gluconate 324 mg p.o. t.i.d., folic acid 1 mg daily, ketoconazole b.i.d., Ativan as needed, magnesium oxide 400 mg p.o. b.i.d., multivitamin daily, Protonix 40 mg q.12 hours, and thiamine 100 mg daily. ASSESSMENT AND PLAN: A middle-aged male with ETOH abuse status post ETOH intoxication, status post Librium therapy, anemia status post packed red blood cells transfusion, status post esophagogastroduodenoscopy consistent with gastritis, status post hypernatremia, and electrolyte abnormality, methicillin-sensitive Staphylococcus aureus bacteremia, status post peripherally inserted central catheter line placement. Continue with Ancef for 14 days. Continue with other current therapy. Awaiting for subacute rehab placement. Follow up with licensed clinical social worker for discharge planning. Daina Wooten MD
[2017-10-18] MEDS: ceFAZolin IV 2 gm in Dextrose 2 GM/50 ML BAG IVPB SCH ×3 (03:41→18:05)
[2017-10-18] MEDS: Pantoprazole 40 mg EC Tab PO SCH ×2 (05:51→17:17)
--- NOTE | 2017-10-18 10:52 | CP.PCM.PN ---
Subjective - Date & Time of Evaluation Date of Evaluation: 10/18/17 Time of Evaluation: 10:45 - Subjective Subjective: Progress note dictated #[id number] Objective - Vital Signs/Intake and Output Vital Signs (last 24 hours): Temp Pulse Resp BP Pulse Ox 98.0 F 112 H 20 130/86 100 10/18/17 07:41 10/18/17 07:41 10/18/17 07:41 10/18/17 07:41 10/18/17 07:41 Intake and Output: 10/18/17 10/18/17 06:59 18:59 Intake Total 600 Balance 600 - Medications Medications: Current Medications Acetaminophen (Tylenol 325mg Tab) 650 mg PO Q6 PRN PRN Reason: Pain, Mild (1-3) Last Admin: 10/18/17 01:49 Dose: 650 mg Clotrimazole (Lotrimin 1%) 0 gm TOP BID [facility] Last Admin: 10/17/17 18:05 Dose: 1 applic Ferrous Gluconate (Fergon) 324 mg PO TID [facility] Last Admin: 10/17/17 17:58 Dose: 324 mg Folic Acid (Folic Acid) 1 mg PO DAILY [facility] Last Admin: 10/17/17 09:19 Dose: 1 mg Cefazolin Sodium/Dextrose (Ancef Iv 2 Gm Duplex) 2 gm in 50 mls @ 100 mls/hr IVPB Q8H [facility] Last Admin: 10/18/17 03:41 Dose: 100 mls/hr Ketoconazole (Nizoral) 5 gm TOP BID [facility] Last Admin: 10/17/17 18:05 Dose: 1 applic Lorazepam (Ativan) 1 mg IVP Q4H PRN PRN Reason: Symptoms of alcohol withdrawl Last Admin: 10/05/17 06:37 Dose: 1 mg Magnesium Oxide (Mag-Ox) 400 mg PO BID [facility] Last Admin: 10/17/17 17:58 Dose: 400 mg Multivitamins (Hexavitamin) 1 tab PO DAILY [facility] Last Admin: 10/17/17 09:20 Dose: 1 tab Pantoprazole Sodium (Protonix Ec Tab) 40 mg PO Q12H [facility] Last Admin: 10/18/17 05:51 Dose: 40 mg Thiamine HCl (Vitamin B1 Tab) 100 mg PO DAILY [facility] Last Admin: 10/17/17 09:20 Dose: 100 mg - Labs Labs: 10/16/17 07:06 10/16/17 07:06 PT 14.1 SECONDS (9.7-12.2) H 10/02/17 20:24 INR 1.3 10/02/17 20:24 APTT 25 SECONDS (21-34) 10/02/17 20:24
[2017-10-18] MEDS: Multiple Vitamins Tab PO SCH (11:06)
[2017-10-18] MEDS: Magnesium Oxide 400 mg Tab UD PO SCH ×2 (11:06→17:16)
[2017-10-18] MEDS: Clotrimazole 1% Cream(30 gm) TOP SCH ×2 (11:08→17:18)
[2017-10-18 11:34] LABS: BASO # 0.1 K/uL (0.0-0.2); BASO % 1.3 % (0.0-2.0); EOS # 0.5 K/uL (0.0-0.7); EOS % 5.1 % (0.0-4.0); HEMOGLOBIN 10.7 g/dL (12.0-18.0); LYMPH # 1.4 K/uL (1.0-4.3); LYMPH % 15.6 % (20.0-40.0); MEAN CELL VOLUME 85.5 fL (80.0-94.0); MEAN CORPUSCULAR HEMOGLOBIN 29.7 pg (27.0-31.0); MEAN CORPUSCULAR HGB CONC 34.7 g/dL (33.0-37.0); MEAN PLATELET VOLUME 6.6 fL (7.2-11.7); MONO # 0.7 K/uL (0.0-0.8); MONO % 7.7 % (0.0-10.0); NEUT # 6.5 K/uL (1.8-7.0); NEUT % 70.3 % (50.0-75.0); RBC 3.61 Mil/uL (4.40-5.90); RED CELL DISTRIBUTION WIDTH 15.4 % (11.5-14.5); WHITE BLOOD COUNT 9.2 K/uL (4.8-10.8)
[2017-10-18 11:52] LABS: ALB/GLOB RATIO 0.9 (1.0-2.1); ALBUMIN 3.9 g/dL (3.5-5.0); ALT/SGPT 17 U/L (21-72); AST/SGOT 40 U/L (17-59); BLOOD UREA NITROGEN 13 mg/dL (9-20); CALCIUM 9.1 mg/dl (8.6-10.4); GFR AFRICAN-AMERICAN > 60; GFR NON-AFRICAN AMERICAN > 60
--- NOTE | 2017-10-18 22:34 | CP.PCM.PN ---
Subjective - Date & Time of Evaluation Date of Evaluation: 10/18/17 Time of Evaluation: 19:10 - Subjective Subjective: No complaints, feeling better Objective - Vital Signs/Intake and Output Vital Signs (last 24 hours): Temp Pulse Resp BP Pulse Ox 98.7 F 115 H 20 101/65 99 10/18/17 15:00 10/18/17 15:00 10/18/17 15:00 10/18/17 15:00 10/18/17 15:00 Intake and Output: 10/18/17 10/19/17 18:59 06:59 Intake Total 630 400 Balance 630 400 - Medications Medications: Current Medications Acetaminophen (Tylenol 325mg Tab) 650 mg PO Q6 PRN PRN Reason: Pain, Mild (1-3) Last Admin: 10/18/17 18:11 Dose: 650 mg Clotrimazole (Lotrimin 1%) 0 gm TOP BID [facility] Last Admin: 10/18/17 17:18 Dose: 1 applic Ferrous Gluconate (Fergon) 324 mg PO TID [facility] Last Admin: 10/18/17 17:16 Dose: 324 mg Folic Acid (Folic Acid) 1 mg PO DAILY [facility] Last Admin: 10/18/17 11:06 Dose: 1 mg Cefazolin Sodium/Dextrose (Ancef Iv 2 Gm Duplex) 2 gm in 50 mls @ 100 mls/hr IVPB Q8H [facility] Last Admin: 10/18/17 18:05 Dose: 100 mls/hr Ketoconazole (Nizoral) 5 gm TOP BID [facility] Last Admin: 10/18/17 17:18 Dose: 1 applic Lorazepam (Ativan) 1 mg IVP Q4H PRN PRN Reason: Symptoms of alcohol withdrawl Last Admin: 10/05/17 06:37 Dose: 1 mg Magnesium Oxide (Mag-Ox) 400 mg PO BID [facility] Last Admin: 10/18/17 17:16 Dose: 400 mg Multivitamins (Hexavitamin) 1 tab PO DAILY [facility] Last Admin: 10/18/17 11:06 Dose: 1 tab Pantoprazole Sodium (Protonix Ec Tab) 40 mg PO Q12H [facility] Last Admin: 10/18/17 17:17 Dose: 40 mg Thiamine HCl (Vitamin B1 Tab) 100 mg PO DAILY [facility] Last Admin: 10/18/17 11:06 Dose: 100 mg - Labs Labs: 10/18/17 11:28 10/18/17 11:28 PT 14.1 SECONDS (9.7-12.2) H 10/02/17 20:24 INR 1.3 10/02/17 20:24 APTT 25 SECONDS (21-34) 10/02/17 20:24 - Head Exam Head Exam: ATRAUMATIC - Eye Exam Eye Exam: Normal appearance - ENT Exam ENT Exam: Mucous Membranes Dry - Respiratory Exam Respiratory Exam: NORMAL BREATHING PATTERN - Cardiovascular Exam Cardiovascular Exam: +S1, +S2 - GI/Abdominal Exam GI & Abdominal Exam: Normal Bowel Sounds Assessment and Plan (1) Anemia Assessment & Plan: iron/b12 deficiency s/p IV supplementation Status: Acute
[2017-10-19] MEDS: ceFAZolin IV 2 gm in Dextrose 2 GM/50 ML BAG IVPB SCH ×3 (03:33→18:07)
--- NOTE | 2017-10-19 04:18 | PN ---
DATE: 10/18/2017 SUBJECTIVE: The patient was seen and examined at bedside. The patient is feeling better. Denies any new complaints. PHYSICAL EXAMINATION GENERAL: Middle-aged male, lying in bed, in no acute distress. VITAL SIGNS: Blood pressure 130/86, pulse 112, respirations 20, temperature 98 degree Fahrenheit, O2 saturations is 100% on room air. HEENT: Pupils equal, round, reactive to light and accommodation. Extraocular muscles intact. No icterus. Positive pallor. No oral thrush. No pharyngeal congestion. NECK: Supple. No JVD. LUNGS: Bilaterally clear breath sounds. No wheezing, no rhonchi. CVS: S1 and S2 present. Regular. ABDOMEN: Soft, nontender. Bowel sounds are present. No guarding, no rigidity. No rebound tenderness. VULCANIZER OPERATOR: Alert, awake, oriented x3. No focal deficits noted. EXTREMITIES: No edema. VASCULAR: Palpable peripheral pulses. MEDICATIONS: Include Ancef 2 g IV q. 8 hours, ferrous gluconate 324 mg p.o. t.i.d., folic acid 1 mg p.o. daily, multivitamin one tablet daily, Protonix 40 mg p.o. q. 12 hours, thiamine 100 mg p.o. daily. LABS: From today, WBC 9.2, hemoglobin 10.7, hematocrit 30.9, platelets 504, sodium 134, potassium 4.4, chloride 92, bicarb 28, BUN 13, creatinine 0.9, glucose 153, calcium 9.1. EKG consistent with sinus tachycardia at 102 beats per minute. No acute ST-T changes noted. ASSESSMENT AND PLAN: Middle-aged male with history of EtOH abuse, intoxication, status post Librium therapy, anemia, status post EGD x10 with gastritis, status post PRBC transfusion, iron deficiency and B12 deficiency anemia, status post IV iron therapy, status post hyponatremia, and electrolyte abnormality, MSSA septicemia, on long-term IV antibiotics. We will continue with current therapy. Daina Wooten MD
[2017-10-19] MEDS: Pantoprazole 40 mg EC Tab PO SCH ×2 (05:52→18:07)
[2017-10-19] MEDS: Clotrimazole 1% Cream(30 gm) TOP SCH ×2 (10:54→18:07)
[2017-10-19] MEDS: Magnesium Oxide 400 mg Tab UD PO SCH ×2 (10:54→18:07)
[2017-10-19] MEDS: Multiple Vitamins Tab PO SCH (10:54)
--- NOTE | 2017-10-19 11:00 | CP.PCM.PN ---
Subjective - Date & Time of Evaluation Date of Evaluation: 10/19/17 Time of Evaluation: 10:59 - Subjective Subjective: Follow up Nephrology Consultation: Assessment: Stable Hyponatremia likely due to chronic Etoh intake and low solute intake. also with high urine Na and osmol: suggests SIADH status chronic sys CHF Anemia, hypomagnesemia Chronic Etoh abuse MSSA Bacteremia Influenza Plan no need for hypertonic saline. avoid correction in serum Na > 6-8 meq/24 hrs oral fluid restriction to 1200 mL/day supplement electrolytes as needed Glycemic control antibiotics as per ID Heme following for anemia management. continue with iron supplement as MVI as ordered. recommend screening colonoscopy once stable pt advised to abstain from etoh CHF management as per primary team Further work up/management as per primary team pt stable for d/c from renal perspective when planned, with outpt renal follow up Thanks for allowing me to participate in care of your patient. Please call if any Qs. will sign off and see him further in hospital on as needed basis. Dr Yusuf Saleem Office: [phone] HPI: Pt is a 62 M with hx of chronic Etoh abuse and smoker presented with complaints of eye discharge, feeling sick, found to have severe anemia, influenza and MSSA Bacteremia. Renal consult for Hyponatremia. pt feels sick but no SOB. not on psych meds or thiazide. denies drinking excess water. non smoker ROS: Cardiovascular: No chest pain. Pulmonary: No shortness of breath improved cough Gastrointestinal: denies abdominal pain No nausea. No vomiting. no further loose stool Genitourinary: No pain while urinating. Denies blood in urine. All other negative Physical Examination: General Appearance: Comfortable, in no acute respiratory distress, co-operative . Vitals reviewed and noted as below Head; Atraumatic, normocephalic ENT: no ulcers no thrush. Tongue is midline. Oropharynx: no rash or ulcers. EYES: Pupils are equal, round and reactive to light accommodation. Eye muscles and extraocular movement intact. Sclera is anicteric. Neck; supple no lymphadenopathy, no thyromegaly or bruit Lungs: Normal respiratory rate/effort. Breath sounds bilateral equal and clear Heart: Increased rate. s1s2 normal. No rub or gallop. Extremities: no edema. No varicose veins Neurological: Patient is alert, awake and oriented to person, place and time. No focal deficit. Strength bilateral appropriate and equal Skin: Warm and dry. Normal turgor. No rash. Palpitation: Normal elasticity for age Abdomen: Abdomen is soft. Bowel sounds +. There is no abdominal tenderness, no guarding/rigidity no organomegaly Psych: limited insight and flat affect/mood MSK: no joint tenderness or swelling. Digits and nails normal, no deformity : kidney or bladder not palpable Labs/imaging reviewed. Past medical history, past surgical history, family history, social history, allergy reviewed and noted as below Family hx: no hx of CKD. Rest non-contributory echo: mild to moderate reduced LVEF Objective - Vital Signs/Intake and Output Vital Signs (last 24 hours): Temp Pulse Resp BP Pulse Ox 98.4 F 113 H 20 110/68 97 10/19/17 07:00 10/19/17 07:00 10/19/17 07:00 10/19/17 07:00 10/19/17 07:00 Intake and Output: 10/19/17 10/19/17 06:59 18:59 Intake Total 400 Balance 400 - Medications Medications: Current Medications Acetaminophen (Tylenol 325mg Tab) 650 mg PO Q6 PRN PRN Reason: Pain, Mild (1-3) Last Admin: 10/18/17 18:11 Dose: 650 mg Clotrimazole (Lotrimin 1%) 0 gm TOP BID [facility] Last Admin: 10/19/17 10:54 Dose: 1 applic Ferrous Gluconate (Fergon) 324 mg PO TID [facility] Last Admin: 10/19/17 10:53 Dose: 324 mg Folic Acid (Folic Acid) 1 mg PO DAILY [facility] Last Admin: 10/19/17 10:54 Dose: 1 mg Cefazolin Sodium/Dextrose (Ancef Iv 2 Gm Duplex) 2 gm in 50 mls @ 100 mls/hr IVPB Q8H [facility] Last Admin: 10/19/17 10:51 Dose: 100 mls/hr Ketoconazole (Nizoral) 5 gm TOP BID [facility] Last Admin: 10/19/17 10:54 Dose: 1 applic Lorazepam (Ativan) 1 mg IVP Q4H PRN PRN Reason: Symptoms of alcohol withdrawl Last Admin: 10/05/17 06:37 Dose: 1 mg Magnesium Oxide (Mag-Ox) 400 mg PO BID [facility] Last Admin: 10/19/17 10:54 Dose: 400 mg Multivitamins (Hexavitamin) 1 tab PO DAILY [facility] Last Admin: 10/19/17 10:54 Dose: 1 tab Pantoprazole Sodium (Protonix Ec Tab) 40 mg PO Q12H [facility] Last Admin: 10/19/17 05:52 Dose: 40 mg Thiamine HCl (Vitamin B1 Tab) 100 mg PO DAILY [facility] Last Admin: 10/19/17 10:54 Dose: 100 mg - Labs Labs: 10/18/17 11:28 10/18/17 11:28 PT 14.1 SECONDS (9.7-12.2) H 10/02/17 20:24 INR 1.3 10/02/17 20:24 APTT 25 SECONDS (21-34) 10/02/17 20:24
--- NOTE | 2017-10-19 11:21 | CP.PCM.PN ---
Subjective - Date & Time of Evaluation Date of Evaluation: 10/19/17 Time of Evaluation: 11:15 - Subjective Subjective: Progress note dictated #[id number] Objective - Vital Signs/Intake and Output Vital Signs (last 24 hours): Temp Pulse Resp BP Pulse Ox 98.4 F 113 H 20 110/68 97 10/19/17 07:00 10/19/17 07:00 10/19/17 07:00 10/19/17 07:00 10/19/17 07:00 Intake and Output: 10/19/17 10/19/17 06:59 18:59 Intake Total 400 Balance 400 - Medications Medications: Current Medications Acetaminophen (Tylenol 325mg Tab) 650 mg PO Q6 PRN PRN Reason: Pain, Mild (1-3) Last Admin: 10/18/17 18:11 Dose: 650 mg Clotrimazole (Lotrimin 1%) 0 gm TOP BID [facility] Last Admin: 10/19/17 10:54 Dose: 1 applic Ferrous Gluconate (Fergon) 324 mg PO TID [facility] Last Admin: 10/19/17 10:53 Dose: 324 mg Folic Acid (Folic Acid) 1 mg PO DAILY [facility] Last Admin: 10/19/17 10:54 Dose: 1 mg Cefazolin Sodium/Dextrose (Ancef Iv 2 Gm Duplex) 2 gm in 50 mls @ 100 mls/hr IVPB Q8H [facility] Last Admin: 10/19/17 10:51 Dose: 100 mls/hr Ketoconazole (Nizoral) 5 gm TOP BID [facility] Last Admin: 10/19/17 10:54 Dose: 1 applic Lorazepam (Ativan) 1 mg IVP Q4H PRN PRN Reason: Symptoms of alcohol withdrawl Last Admin: 10/05/17 06:37 Dose: 1 mg Magnesium Oxide (Mag-Ox) 400 mg PO BID [facility] Last Admin: 10/19/17 10:54 Dose: 400 mg Multivitamins (Hexavitamin) 1 tab PO DAILY [facility] Last Admin: 10/19/17 10:54 Dose: 1 tab Pantoprazole Sodium (Protonix Ec Tab) 40 mg PO Q12H [facility] Last Admin: 10/19/17 05:52 Dose: 40 mg Thiamine HCl (Vitamin B1 Tab) 100 mg PO DAILY [facility] Last Admin: 10/19/17 10:54 Dose: 100 mg - Labs Labs: 10/18/17 11:28 10/18/17 11:28 PT 14.1 SECONDS (9.7-12.2) H 10/02/17 20:24 INR 1.3 10/02/17 20:24 APTT 25 SECONDS (21-34) 10/02/17 20:24
--- NOTE | 2017-10-19 15:25 | RAD ---
HISTORY: picc line placement COMPARISON: Chest x-ray performed 10/15/17 TECHNIQUE: Chest, one view. FINDINGS: Right-sided PICC extends to the expected location of the SVC. LUNGS: Minimal patchy opacity in the right lateral mid lung zone, likely atelectasis. Please note that chest x-ray has limited sensitivity for the detection of pulmonary masses. PLEURA: No significant pleural effusion identified. No definite pneumothorax . CARDIOVASCULAR: Heart size appears within normal limits. OSSEOUS STRUCTURES: No acute osseous abnormality identified. VISUALIZED UPPER ABDOMEN: Unremarkable. OTHER FINDINGS: None. IMPRESSION: Right-sided PICC extends to the expected location of the SVC. Minimal patchy opacity in the right lateral mid lung zone, likely atelectasis.
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
--- NOTE | 2017-10-19 20:39 | CP.PCM.PN ---
Subjective - Date & Time of Evaluation Date of Evaluation: 10/19/17 Time of Evaluation: 19:25 - Subjective Subjective: Feeling better, for RANDALL Objective - Vital Signs/Intake and Output Vital Signs (last 24 hours): Temp Pulse Resp BP Pulse Ox 100.9 F H 128 H 22 94/60 L 99 10/19/17 15:00 10/19/17 15:00 10/19/17 15:00 10/19/17 15:00 10/19/17 15:00 Intake and Output: 10/19/17 10/20/17 18:59 06:59 Intake Total 530 Balance 530 - Medications Medications: Current Medications Acetaminophen (Tylenol 325mg Tab) 650 mg PO Q6 PRN PRN Reason: Pain, Mild (1-3) Last Admin: 10/18/17 18:11 Dose: 650 mg Clotrimazole (Lotrimin 1%) 0 gm TOP BID [facility] Last Admin: 10/19/17 18:07 Dose: 1 applic Ferrous Gluconate (Fergon) 324 mg PO TID [facility] Last Admin: 10/19/17 18:07 Dose: 324 mg Folic Acid (Folic Acid) 1 mg PO DAILY [facility] Last Admin: 10/19/17 10:54 Dose: 1 mg Cefazolin Sodium/Dextrose (Ancef Iv 2 Gm Duplex) 2 gm in 50 mls @ 100 mls/hr IVPB Q8H [facility] Last Admin: 10/19/17 18:07 Dose: 100 mls/hr Ketoconazole (Nizoral) 5 gm TOP BID [facility] Last Admin: 10/19/17 18:08 Dose: 1 applic Lorazepam (Ativan) 1 mg IVP Q4H PRN PRN Reason: Symptoms of alcohol withdrawl Last Admin: 10/05/17 06:37 Dose: 1 mg Magnesium Oxide (Mag-Ox) 400 mg PO BID [facility] Last Admin: 10/19/17 18:07 Dose: 400 mg Multivitamins (Hexavitamin) 1 tab PO DAILY [facility] Last Admin: 10/19/17 10:54 Dose: 1 tab Pantoprazole Sodium (Protonix Ec Tab) 40 mg PO Q12H [facility] Last Admin: 10/19/17 18:07 Dose: 40 mg Thiamine HCl (Vitamin B1 Tab) 100 mg PO DAILY [facility] Last Admin: 10/19/17 10:54 Dose: 100 mg - Labs Labs: 10/18/17 11:28 10/18/17 11:28 PT 14.1 SECONDS (9.7-12.2) H 10/02/17 20:24 INR 1.3 10/02/17 20:24 APTT 25 SECONDS (21-34) 10/02/17 20:24 - Head Exam Head Exam: ATRAUMATIC - Eye Exam Eye Exam: Normal appearance - ENT Exam ENT Exam: Mucous Membranes Dry - Respiratory Exam Respiratory Exam: NORMAL BREATHING PATTERN - Cardiovascular Exam Cardiovascular Exam: +S1, +S2 - GI/Abdominal Exam GI & Abdominal Exam: Normal Bowel Sounds Assessment and Plan (1) Anemia Assessment & Plan: iron and b12 deficiency s/p IV/IM supplementation on oral iron H/H improved Status: Acute
--- NOTE | 2017-10-20 00:25 | PN ---
DATE: 10/19/2017. SUBJECTIVE: The patient was seen and examined at bedside. The patient is feeling much better. Denies any complaints. PHYSICAL EXAMINATION: GENERAL: Middle aged male, lying in bed, in no acute distress. VITAL SIGNS: Blood pressure 110/68, pulse 113, respirations 20, temperature 98.4 degrees Fahrenheit and O2 sats 97% on room air. HEENT: Pupils equal, round, and reacting to light and accommodation. Extraocular muscles are intact. No icterus. No oral thrush. Positive pallor. NECK: Supple. LUNGS: Bilateral vesicular breath sounds. No wheezing. No rhonchi. CVS: S1 and S2 present and regular. ABDOMEN: Soft and nontender. Bowel sounds present. No guarding. No rigidity. No rebound tenderness noted. EMERGENCY PLANNER: Alert, awake oriented x3. No focal deficits notes. EXTREMITIES: No edema. Palpable peripheral pulses. MEDICATIONS: Include Tylenol, Ancef 2 gm IV q. 8 hours, Feosol, folic acid, ketoconazole, magnesium oxide, Protonix 40 mg q. 12 hours, thiamine 100 mg daily and multivitamin 1 tab daily. ASSESSMENT AND PLAN: Middle-aged male with ethyl alcohol abuse, status post intoxication and treatment with Librium, anemia status post endoscopy consistent with gastritis status post blood transfusion status post hyponatremia and electrolyte disorder, methicillin-susceptible Staphylococcus aureus bacteremia on Ancef 2 gm IV q. 8 hours. Continue with current therapy. For possible RANDALL in a.m. Daina Wooten MD
[2017-10-20] MEDS: Pantoprazole 40 mg EC Tab PO SCH ×2 (05:36→17:54)
[2017-10-20] MEDS: ceFAZolin IV 2 gm in Dextrose 2 GM/50 ML BAG IVPB SCH ×3 (05:38→18:01)
[2017-10-20 07:37] LABS: SQUAMOUS EPITHIAL < 1 /hpf (0-5); URINE BILIRUBIN NEGATIVE (NEGATIVE); URINE BLOOD NEGATIVE (NEGATIVE); URINE CLARITY Clear (Clear); URINE COLOR Straw (YELLOW); URINE GLUCOSE (UA) NORMAL (Normal); URINE LEUKOCYTE ESTERASE NEG Leu/uL (Negative); URINE NITRATE NEGATIVE (NEGATIVE); URINE PROTEIN NEGATIVE (NEGATIVE); URINE UROBILINOGEN NORMAL mg/dL (0.2-1.0)
--- NOTE | 2017-10-20 08:21 | RAD ---
HISTORY: COMPARISON: 09/03/2014 TECHNIQUE: Chest PA and lateral FINDINGS: LINES AND TUBES: The right PICC line terminates in the SVC. LUNG AND PLEURA: The lungs are well inflated and clear. HEART AND MEDIASTINUM: The heart is not enlarged. The hilar and mediastinal contours are within normal limits. SKELETAL STRUCTURES: The bony structures are within normal limits for the patient's age. VISUALIZED UPPER ABDOMEN: Normal. OTHER FINDINGS: None. IMPRESSION: No active pulmonary disease.
[2017-10-20] MEDS ORDERED: Lidocaine 4% (Laryng-O-Jet) Kit MM ONE (08:55)
[2017-10-20] MEDS ORDERED: Midazolam 2 MG/2 ML VIAL ONE (09:15)
[2017-10-20] MEDS: Multiple Vitamins Tab PO SCH (10:46)
[2017-10-20] MEDS: Magnesium Oxide 400 mg Tab UD PO SCH (10:46)
[2017-10-20] MEDS: Clotrimazole 1% Cream(30 gm) TOP SCH ×3 (10:48→17:56)
[2017-10-20 14:51] LABS: BASO % 0.4 % (0.0-2.0); EOS # 0.4 K/uL (0.0-0.7); EOS % 5.7 % (0.0-4.0); LYMPH # 1.2 K/uL (1.0-4.3); LYMPH % 17.2 % (20.0-40.0); MEAN CELL VOLUME 86.4 fL (80.0-94.0); MEAN CORPUSCULAR HGB CONC 34.7 g/dL (33.0-37.0); MEAN PLATELET VOLUME 7.4 fL (7.2-11.7); MONO # 0.8 K/uL (0.0-0.8); MONO % 11.8 % (0.0-10.0); NEUT # 4.6 K/uL (1.8-7.0); NEUT % 64.9 % (50.0-75.0); NRBC % 0.3 % (0.0-2.0); RBC 3.32 Mil/uL (4.40-5.90); WHITE BLOOD COUNT 7.1 K/uL (4.8-10.8)
[2017-10-20 15:00] LABS: INR 1.1; PROTHROMBIN TIME 12.4 SECONDS (9.7-12.2)
[2017-10-20 15:21] LABS: ALB/GLOB RATIO 0.9 (1.0-2.1); ALBUMIN 3.7 g/dL (3.5-5.0); ALT/SGPT 18 U/L (21-72); AST/SGOT 30 U/L (17-59); BLOOD UREA NITROGEN 15 mg/dL (9-20); CALCIUM 9.3 mg/dl (8.6-10.4); GFR AFRICAN-AMERICAN > 60; GFR NON-AFRICAN AMERICAN > 60
--- NOTE | 2017-10-20 15:21 | CP.PCM.PN ---
Subjective - Date & Time of Evaluation Date of Evaluation: 10/20/17 Time of Evaluation: 15:10 - Subjective Subjective: Progress note dictated #[id number] Objective - Vital Signs/Intake and Output Vital Signs (last 24 hours): Temp Pulse Resp BP Pulse Ox 98.2 F 104 H 20 102/66 100 10/20/17 08:00 10/20/17 08:00 10/20/17 08:00 10/20/17 08:00 10/20/17 08:00 Intake and Output: 10/20/17 10/20/17 06:59 18:59 Intake Total 250 Output Total 400 Balance -400 250 - Medications Medications: Current Medications Acetaminophen (Tylenol 325mg Tab) 650 mg PO Q6 PRN PRN Reason: Pain, Mild (1-3) Last Admin: 10/18/17 18:11 Dose: 650 mg Clotrimazole (Lotrimin 1%) 0 gm TOP BID [facility] Last Admin: 10/20/17 14:16 Dose: 1 applic Ferrous Gluconate (Fergon) 324 mg PO TID [facility] Last Admin: 10/20/17 13:37 Dose: 324 mg Folic Acid (Folic Acid) 1 mg PO DAILY [facility] Last Admin: 10/20/17 10:46 Dose: 1 mg Cefazolin Sodium/Dextrose (Ancef Iv 2 Gm Duplex) 2 gm in 50 mls @ 100 mls/hr IVPB Q8H [facility] Last Admin: 10/20/17 10:56 Dose: 100 mls/hr Ketoconazole (Nizoral) 5 gm TOP BID [facility] Last Admin: 10/20/17 10:48 Dose: 1 applic Lactic Acid (Lac-Hydrin 12% Lotion (225 G)) 1 gm EXT BID [facility] Multivitamins (Hexavitamin) 1 tab PO DAILY [facility] Last Admin: 10/20/17 10:46 Dose: 1 tab Pantoprazole Sodium (Protonix Ec Tab) 40 mg PO Q12H [facility] Last Admin: 10/20/17 05:36 Dose: Not Given Thiamine HCl (Vitamin B1 Tab) 100 mg PO DAILY [facility] Last Admin: 10/20/17 10:46 Dose: 100 mg - Labs Labs: 10/20/17 14:45 10/18/17 11:28 PT 12.4 SECONDS (9.7-12.2) H 10/20/17 14:45 INR 1.1 10/20/17 14:45 APTT 25 SECONDS (21-34) 10/02/17 20:24
[2017-10-20] MEDS: Ammonium Lactate 12% Lotion (225 g) EXT SCH (17:54)
--- NOTE | 2017-10-20 20:57 | PN ---
DATE: 10/20/2017 SUBJECTIVE: The patient was seen and examined at bedside. The patient offers no new complaints. Events from this morning noted. RANDALL postponed till tomorrow. Denies any new complaints. PHYSICAL EXAMINATION: GENERAL: Middle-aged male, sitting in bed, in no acute distress. VITAL SIGNS: Blood pressure 102/66, pulse 104, respirations 20, temperature 98.2 degrees Fahrenheit, O2 saturation is 100% on room air. HEENT: Pupils are equal, round, and reactive to light and accommodation. Extraocular muscles intact. No icterus. Positive pallor. No oral thrush. No pharyngeal congestion. NECK: Supple. No JVD. LUNGS: Bilateral vesicular breath sounds. No wheezing. No rhonchi. CVS: S1 and S2 present. Regular. ABDOMEN: Soft. Nontender. Bowel sounds are present. No guarding. No rigidity. No rebound tenderness noted. ANESTHESIA ASSISTANT: Alert, awake, oriented x3. No focal deficits noted. EXTREMITIES: No edema. VASCULAR: Palpable peripheral pulses. MEDICATIONS: Include Tylenol as needed, Ancef 2 gm IV q.8 hours. Lotrimin cream, ferrous gluconate 324 mg p.o. t.i.d., folic acid 1 mg daily, twice daily, magnesium oxide, multivitamin, Protonix 40 mg p.o. q.12 hours, thiamine 100 p.o. daily. LABORATORY DATA: Labs done from this morning: WBC 7.1, hemoglobin 10, hematocrit 28.7, platelets 422. PT 12.4, INR 1.1. UA negative. Urine culture and blood culture is also pending. ASSESSMENT AND PLAN: Middle-aged male with history of ETOH abuse, status post intoxication, anemia, status post esophagogastroduodenoscopy, status post packed red blood cells transfusion, iron deficiency and B12 deficiency anemia, methicillin-sensitive staphylococcus aureus bacteremia, status post hypernatremia and electrolyte disorder, on long-term IV antibiotics, for possible transesophageal echocardiography in a.m. as it was scheduled for yesterday and canceled for one spike of temperature 100.9 last night. Padilla cultures were done, awaiting culture results. Chest x-ray is negative. We will continue with the current medication. statement services representative for discharge planning after the completion of the antibiotics. Daina Wooten MD [facility] # [id number]
--- NOTE | 2017-10-20 23:30 | CP.PCM.PN ---
Subjective - Date & Time of Evaluation Date of Evaluation: 10/20/17 Time of Evaluation: 12:45 - Subjective Subjective: No complaints. RANDALL rescheduled for tomorrow Objective - Vital Signs/Intake and Output Vital Signs (last 24 hours): Temp Pulse Resp BP Pulse Ox 98.7 F 128 H 20 107/67 98 10/20/17 16:00 10/20/17 16:00 10/20/17 16:00 10/20/17 16:00 10/20/17 16:00 Intake and Output: 10/20/17 10/21/17 18:59 06:59 Intake Total 250 700 Balance 250 700 - Medications Medications: Current Medications Acetaminophen (Tylenol 325mg Tab) 650 mg PO Q6 PRN PRN Reason: Pain, Mild (1-3) Last Admin: 10/18/17 18:11 Dose: 650 mg Clotrimazole (Lotrimin 1%) 0 gm TOP BID [facility] Last Admin: 10/20/17 17:56 Dose: 1 applic Ferrous Gluconate (Fergon) 324 mg PO TID [facility] Last Admin: 10/20/17 17:54 Dose: 324 mg Folic Acid (Folic Acid) 1 mg PO DAILY [facility] Last Admin: 10/20/17 10:46 Dose: 1 mg Cefazolin Sodium 2 gm/ Sodium (Chloride) 100 mls @ 200 mls/hr IVPB Q8H [facility] Ketoconazole (Nizoral) 5 gm TOP BID [facility] Last Admin: 10/20/17 17:56 Dose: 1 applic Lactic Acid (Lac-Hydrin 12% Lotion (225 G)) 1 gm EXT BID [facility] Last Admin: 10/20/17 17:54 Dose: 1 applic Multivitamins (Hexavitamin) 1 tab PO DAILY [facility] Last Admin: 10/20/17 10:46 Dose: 1 tab Pantoprazole Sodium (Protonix Ec Tab) 40 mg PO Q12H [facility] Last Admin: 10/20/17 17:54 Dose: 40 mg Thiamine HCl (Vitamin B1 Tab) 100 mg PO DAILY [facility] Last Admin: 10/20/17 10:46 Dose: 100 mg - Labs Labs: 10/20/17 14:45 10/20/17 14:45 PT 12.4 SECONDS (9.7-12.2) H 10/20/17 14:45 INR 1.1 10/20/17 14:45 APTT 25 SECONDS (21-34) 10/02/17 20:24 - Head Exam Head Exam: ATRAUMATIC - Eye Exam Eye Exam: Normal appearance - ENT Exam ENT Exam: Mucous Membranes Dry - Respiratory Exam Respiratory Exam: NORMAL BREATHING PATTERN - Cardiovascular Exam Cardiovascular Exam: +S1, +S2 - GI/Abdominal Exam GI & Abdominal Exam: Normal Bowel Sounds Assessment and Plan (1) Anemia Assessment & Plan: iron and b12 deficiency s/p IV and IM supplementation on PO iron Status: Acute
[2017-10-21] MEDS: ceFAZolin 2 GM in Sodium Chloride 0.9% 100 ML IVPB SCH ×2 (02:02→12:00)
[2017-10-21] MEDS: Pantoprazole 40 mg EC Tab PO SCH ×2 (05:39→18:15)
[2017-10-21 07:35] LABS: BASO # 0.1 K/uL (0.0-0.2); BASO % 1.2 % (0.0-2.0); EOS # 0.5 K/uL (0.0-0.7); EOS % 6.8 % (0.0-4.0); HEMOGLOBIN 10.3 g/dL (12.0-18.0); LYMPH # 1.4 K/uL (1.0-4.3); LYMPH % 20.3 % (20.0-40.0); MEAN CELL VOLUME 85.1 fL (80.0-94.0); MEAN CORPUSCULAR HEMOGLOBIN 29.6 pg (27.0-31.0); MEAN CORPUSCULAR HGB CONC 34.8 g/dL (33.0-37.0); MEAN PLATELET VOLUME 7.1 fL (7.2-11.7); MONO # 0.8 K/uL (0.0-0.8); MONO % 11.4 % (0.0-10.0); NEUT # 4.1 K/uL (1.8-7.0); NEUT % 60.3 % (50.0-75.0); NRBC % 0.1 % (0.0-2.0); RBC 3.48 Mil/uL (4.40-5.90); RED CELL DISTRIBUTION WIDTH 15.3 % (11.5-14.5); WHITE BLOOD COUNT 6.8 K/uL (4.8-10.8)
[2017-10-21] MEDS ORDERED: Lidocaine 4% (Laryng-O-Jet) Kit MM ONE ×2 (09:04→09:05)
[2017-10-21] MEDS ORDERED: Lidocaine 2% Inj (20ml) ONE (09:05)
[2017-10-21 09:32] LABS: ALBUMIN 3.8 g/dL (3.5-5.0); ALT/SGPT 16 U/L (21-72); AST/SGOT 34 U/L (17-59); BLOOD UREA NITROGEN 15 mg/dL (9-20); CALCIUM 8.9 mg/dl (8.6-10.4); GFR AFRICAN-AMERICAN > 60; GFR NON-AFRICAN AMERICAN > 60
[2017-10-21] MEDS: Multiple Vitamins Tab PO SCH (09:40)
[2017-10-21] MEDS: Clotrimazole 1% Cream(30 gm) TOP SCH ×2 (09:42→18:16)
--- NOTE | 2017-10-21 09:52 | CP.PCM.PN ---
Subjective - Date & Time of Evaluation Date of Evaluation: 10/21/17 Time of Evaluation: 09:40 - Subjective Subjective: Progress note dictated #[id number] Objective - Vital Signs/Intake and Output Vital Signs (last 24 hours): Temp Pulse Resp BP Pulse Ox 98.0 F 101 H 20 131/84 100 10/21/17 07:20 10/21/17 07:20 10/21/17 07:20 10/21/17 07:20 10/21/17 07:20 Intake and Output: 10/21/17 10/21/17 06:59 18:59 Intake Total 700 Balance 700 - Medications Medications: Current Medications Acetaminophen (Tylenol 325mg Tab) 650 mg PO Q6 PRN PRN Reason: Pain, Mild (1-3) Last Admin: 10/21/17 00:01 Dose: 650 mg Clotrimazole (Lotrimin 1%) 0 gm TOP BID [facility] Last Admin: 10/21/17 09:42 Dose: 1 applic Ferrous Gluconate (Fergon) 324 mg PO TID [facility] Last Admin: 10/21/17 09:40 Dose: 324 mg Folic Acid (Folic Acid) 1 mg PO DAILY [facility] Last Admin: 10/21/17 09:41 Dose: 1 mg Cefazolin Sodium 2 gm/ Sodium (Chloride) 100 mls @ 200 mls/hr IVPB Q8H [facility] Last Admin: 10/21/17 02:02 Dose: 200 mls/hr Ketoconazole (Nizoral) 5 gm TOP BID [facility] Last Admin: 10/21/17 09:42 Dose: 1 applic Lactic Acid (Lac-Hydrin 12% Lotion (225 G)) 1 gm EXT BID [facility] Last Admin: 10/20/17 17:54 Dose: 1 applic Multivitamins (Hexavitamin) 1 tab PO DAILY [facility] Last Admin: 10/21/17 09:40 Dose: 1 tab Pantoprazole Sodium (Protonix Ec Tab) 40 mg PO Q12H [facility] Last Admin: 10/21/17 05:39 Dose: Not Given Thiamine HCl (Vitamin B1 Tab) 100 mg PO DAILY [facility] Last Admin: 10/21/17 09:40 Dose: 100 mg - Labs Labs: 10/21/17 07:13 10/21/17 07:13 PT 12.4 SECONDS (9.7-12.2) H 10/20/17 14:45 INR 1.1 10/20/17 14:45 APTT 25 SECONDS (21-34) 10/02/17 20:24
[2017-10-21] MEDS: Ammonium Lactate 12% Lotion (225 g) EXT SCH ×2 (10:00→18:16)
[2017-10-21] MEDS ORDERED: Propofol 10 mg/ml Inj (20 ML) ONE (10:56)
--- NOTE | 2017-10-21 18:38 | PN ---
DATE: 10/21/2017 SUBJECTIVE: The patient offers no new complaints. Feeling much better. Denies any chest pain or shortness of breath on examination. PHYSICAL EXAMINATION: GENERAL: A middle-aged male, lying in bed, in no acute distress. VITAL SIGNS: Blood pressure 128/81, pulse 97, respirations 18, temperature 97.9 degrees Fahrenheit. O2 saturations 97% on room air. HEENT: Pupils are equal, round, and reactive to light and accommodation. Extraocular muscles intact. No icterus. No pallor. No oral thrush. No pharyngeal congestion. NECK: Supple. No JVD. LUNGS: Bilateral vesicular breath sounds. No wheezing. No rhonchi. CVS: S1 and S2 present. Regular. ABDOMEN: Soft. Nontender. Bowel sounds are present. No guarding. No rigidity. No rebound tenderness noted. MAINTENANCE DIRECTOR: Alert, awake, oriented x3. No focal deficits noted. EXTREMITIES: No edema. Palpable peripheral pulses. MEDICATIONS: Include Ancef 2 gm IV q. 8 hours, ferrous gluconate, folic acid, multivitamin, thiamine, Tylenol as needed, and Lotrimin cream. LABORATORY DATA: Labs from this morning, blood cultures negative, WBC 6.8, hemoglobin 10.3, hematocrit 29.6, platelets 459, sodium 137, potassium 4.5, chloride 97, bicarbonate 24, BUN 15, creatinine 0.8, glucose 87, calcium 8.9, ALT 16, AST 34, alkaline phosphatase 70. UA negative. ASSESSMENT AND PLAN: Middle-aged male with ethanol alcohol abuse, status post intoxication and Librium therapy; anemia, status post packed red blood cell blood transfusion; status post esophagogastroduodenoscopy, consistent with gastritis; iron-deficiency and B12 deficiency anemia; status post influenza therapy; methicillin-susceptible Staphylococcus aureus bacteremia, on long-term intravenous antibiotics. The patient is scheduled for possible transesophageal echocardiogram today. If transesophageal echocardiogram is negative, I will plan discharging the patient home after the completion of 14 days of intravenous antibiotics when cleared by Infectious Disease. We will continue with current medications. Follow up with transesophageal echocardiogram results. Daina Wooten MD [facility] # [id number]
--- NOTE | 2017-10-21 19:47 | CP.PCM.PN ---
Subjective - Date & Time of Evaluation Date of Evaluation: 10/21/17 Time of Evaluation: 19:46 - Subjective Subjective: Patient s/p RANDALL No evidence of Endocarditis Full report to follow Objective - Vital Signs/Intake and Output Vital Signs (last 24 hours): Temp Pulse Resp BP Pulse Ox 98 F 115 H 98 H 99/54 L 97 10/21/17 17:08 10/21/17 17:08 10/21/17 17:08 10/21/17 17:08 10/21/17 12:00 Intake and Output: 10/21/17 10/22/17 18:59 06:59 Intake Total 250 Balance 250 - Medications Medications: Current Medications Acetaminophen (Tylenol 325mg Tab) 650 mg PO Q6 PRN PRN Reason: Pain, Mild (1-3) Last Admin: 10/21/17 00:01 Dose: 650 mg Clotrimazole (Lotrimin 1%) 0 gm TOP BID [facility] Last Admin: 10/21/17 18:16 Dose: 1 applic Ferrous Gluconate (Fergon) 324 mg PO TID [facility] Last Admin: 10/21/17 18:15 Dose: 324 mg Folic Acid (Folic Acid) 1 mg PO DAILY [facility] Last Admin: 10/21/17 09:41 Dose: 1 mg Cefazolin Sodium/Dextrose (Ancef Iv 2 Gm Duplex) 2 gm in 50 mls @ 100 mls/hr IVPB Q8H [facility] Ketoconazole (Nizoral) 5 gm TOP BID [facility] Last Admin: 10/21/17 18:16 Dose: 1 applic Lactic Acid (Lac-Hydrin 12% Lotion (225 G)) 1 gm EXT BID [facility] Last Admin: 10/21/17 18:16 Dose: 1 applic Multivitamins (Hexavitamin) 1 tab PO DAILY [facility] Last Admin: 10/21/17 09:40 Dose: 1 tab Pantoprazole Sodium (Protonix Ec Tab) 40 mg PO Q12H [facility] Last Admin: 10/21/17 18:15 Dose: 40 mg Thiamine HCl (Vitamin B1 Tab) 100 mg PO DAILY [facility] Last Admin: 10/21/17 09:40 Dose: 100 mg - Labs Labs: 10/21/17 07:13 10/21/17 07:13 PT 12.4 SECONDS (9.7-12.2) H 10/20/17 14:45 INR 1.1 10/20/17 14:45 APTT 25 SECONDS (21-34) 10/02/17 20:24
--- NOTE | 2017-10-21 22:19 | CP.PCM.PN ---
Subjective - Date & Time of Evaluation Date of Evaluation: 10/21/17 Time of Evaluation: 14:00 - Subjective Subjective: s/p RANDALL, no endocarditis per cardio Objective - Vital Signs/Intake and Output Vital Signs (last 24 hours): Temp Pulse Resp BP Pulse Ox 98 F 111 H 98 H 113/58 L 97 10/21/17 17:08 10/21/17 21:07 10/21/17 17:08 10/21/17 21:07 10/21/17 12:00 Intake and Output: 10/21/17 10/22/17 18:59 06:59 Intake Total 250 Balance 250 - Medications Medications: Current Medications Acetaminophen (Tylenol 325mg Tab) 650 mg PO Q6 PRN PRN Reason: Pain, Mild (1-3) Last Admin: 10/21/17 00:01 Dose: 650 mg Clotrimazole (Lotrimin 1%) 0 gm TOP BID [facility] Last Admin: 10/21/17 18:16 Dose: 1 applic Ferrous Gluconate (Fergon) 324 mg PO TID [facility] Last Admin: 10/21/17 18:15 Dose: 324 mg Folic Acid (Folic Acid) 1 mg PO DAILY [facility] Last Admin: 10/21/17 09:41 Dose: 1 mg Cefazolin Sodium/Dextrose (Ancef Iv 2 Gm Duplex) 2 gm in 50 mls @ 100 mls/hr IVPB Q8H [facility] Ketoconazole (Nizoral) 5 gm TOP BID [facility] Last Admin: 10/21/17 18:16 Dose: 1 applic Lactic Acid (Lac-Hydrin 12% Lotion (225 G)) 1 gm EXT BID [facility] Last Admin: 10/21/17 18:16 Dose: 1 applic Multivitamins (Hexavitamin) 1 tab PO DAILY [facility] Last Admin: 10/21/17 09:40 Dose: 1 tab Pantoprazole Sodium (Protonix Ec Tab) 40 mg PO Q12H [facility] Last Admin: 10/21/17 18:15 Dose: 40 mg Thiamine HCl (Vitamin B1 Tab) 100 mg PO DAILY [facility] Last Admin: 10/21/17 09:40 Dose: 100 mg - Labs Labs: 10/21/17 07:13 10/21/17 07:13 PT 12.4 SECONDS (9.7-12.2) H 10/20/17 14:45 INR 1.1 10/20/17 14:45 APTT 25 SECONDS (21-34) 10/02/17 20:24 - Head Exam Head Exam: ATRAUMATIC - Eye Exam Eye Exam: Normal appearance - ENT Exam ENT Exam: Mucous Membranes Dry - Respiratory Exam Respiratory Exam: NORMAL BREATHING PATTERN - Cardiovascular Exam Cardiovascular Exam: +S1, +S2 - GI/Abdominal Exam GI & Abdominal Exam: Normal Bowel Sounds Assessment and Plan (1) Anemia Assessment & Plan: iron and b12 deficiency s/p IV/IM supplementation on oral iron Status: Acute
[2017-10-22] MEDS: ceFAZolin IV 2 gm in Dextrose 2 GM/50 ML BAG IVPB SCH ×3 (02:42→18:00)
[2017-10-22] MEDS: Pantoprazole 40 mg EC Tab PO SCH ×2 (06:46→18:00)
[2017-10-22 07:22] LABS: BASO # 0.1 K/uL (0.0-0.2); BASO % 1.5 % (0.0-2.0); EOS # 0.4 K/uL (0.0-0.7); EOS % 5.4 % (0.0-4.0); HEMOGLOBIN 10.9 g/dL (12.0-18.0); LYMPH # 1.9 K/uL (1.0-4.3); LYMPH % 23.3 % (20.0-40.0); MEAN CELL VOLUME 85.5 fL (80.0-94.0); MEAN CORPUSCULAR HEMOGLOBIN 29.7 pg (27.0-31.0); MEAN CORPUSCULAR HGB CONC 34.7 g/dL (33.0-37.0); MEAN PLATELET VOLUME 7.1 fL (7.2-11.7); MONO # 0.8 K/uL (0.0-0.8); MONO % 9.3 % (0.0-10.0); NEUT % 60.5 % (50.0-75.0); NRBC % 0.1 % (0.0-2.0); RBC 3.66 Mil/uL (4.40-5.90); RED CELL DISTRIBUTION WIDTH 15.8 % (11.5-14.5); WHITE BLOOD COUNT 8.2 K/uL (4.8-10.8)
[2017-10-22 07:50] LABS: ALBUMIN 4.1 g/dL (3.5-5.0); ALT/SGPT 10 U/L (21-72); AST/SGOT 33 U/L (17-59); BLOOD UREA NITROGEN 12 mg/dL (9-20); CALCIUM 9.5 mg/dl (8.6-10.4); GFR AFRICAN-AMERICAN > 60; GFR NON-AFRICAN AMERICAN > 60
--- NOTE | 2017-10-22 09:26 | CP.PCM.PN ---
Subjective - Date & Time of Evaluation Date of Evaluation: 10/22/17 Time of Evaluation: 09:30 - Subjective Subjective: Progress note dictated #[id number] Objective - Vital Signs/Intake and Output Vital Signs (last 24 hours): Temp Pulse Resp BP Pulse Ox 98.4 F 99 H 20 119/73 100 10/22/17 07:00 10/22/17 07:00 10/22/17 07:00 10/22/17 07:00 10/22/17 07:00 Intake and Output: 10/22/17 10/22/17 06:59 18:59 Intake Total 500 Balance 500 - Medications Medications: Current Medications Acetaminophen (Tylenol 325mg Tab) 650 mg PO Q6 PRN PRN Reason: Pain, Mild (1-3) Last Admin: 10/21/17 22:59 Dose: 650 mg Clotrimazole (Lotrimin 1%) 0 gm TOP BID [facility] Last Admin: 10/21/17 18:16 Dose: 1 applic Ferrous Gluconate (Fergon) 324 mg PO TID [facility] Last Admin: 10/21/17 18:15 Dose: 324 mg Folic Acid (Folic Acid) 1 mg PO DAILY [facility] Last Admin: 10/21/17 09:41 Dose: 1 mg Cefazolin Sodium/Dextrose (Ancef Iv 2 Gm Duplex) 2 gm in 50 mls @ 100 mls/hr IVPB Q8H [facility] Last Admin: 10/22/17 02:42 Dose: 100 mls/hr Ketoconazole (Nizoral) 5 gm TOP BID [facility] Last Admin: 10/21/17 18:16 Dose: 1 applic Lactic Acid (Lac-Hydrin 12% Lotion (225 G)) 1 gm EXT BID [facility] Last Admin: 10/21/17 18:16 Dose: 1 applic Multivitamins (Hexavitamin) 1 tab PO DAILY [facility] Last Admin: 10/21/17 09:40 Dose: 1 tab Pantoprazole Sodium (Protonix Ec Tab) 40 mg PO Q12H [facility] Last Admin: 10/22/17 06:46 Dose: 40 mg Thiamine HCl (Vitamin B1 Tab) 100 mg PO DAILY [facility] Last Admin: 10/21/17 09:40 Dose: 100 mg - Labs Labs: 10/22/17 07:12 10/22/17 07:12 PT 12.4 SECONDS (9.7-12.2) H 10/20/17 14:45 INR 1.1 10/20/17 14:45 APTT 25 SECONDS (21-34) 10/02/17 20:24
[2017-10-22] MEDS: Multiple Vitamins Tab PO SCH (09:28)
[2017-10-22] MEDS: Ammonium Lactate 12% Lotion (225 g) EXT SCH ×2 (09:28→18:05)
[2017-10-22] MEDS: Clotrimazole 1% Cream(30 gm) TOP SCH ×2 (09:29→18:06)
--- NOTE | 2017-10-22 14:20 | PN ---
SUBJECTIVE: The patient was seen and examined at bedside. The patient is feeling much better. Denies any new complaints. Tolerating well. No new complaints. PHYSICAL EXAMINATION: GENERAL: Middle-aged male, lying in bed, in no acute distress. VITAL SIGNS: Blood pressure 119/73, pulse 99, respirations 20, temperature 98.4 degrees Fahrenheit, and O2 saturations 100% on room air. HEENT: Pupils are equal, round, reacting to light, and accommodation. Extraocular muscles intact. No icterus. Mild pallor. No oral thrush. No pharyngeal congestion. NECK: Supple. No JVD. LUNGS: Bilateral vesicular breath sounds. No wheezing, no rhonchi. CVS: S1, S2 present, regular. ABDOMEN: Soft, nontender. Bowel sounds present. No guarding. No rigidity. No rebound tenderness noted. CLINICAL INFORMATICIST: Alert, awake, and oriented x3. No focal deficits noted. EXTREMITIES: No edema, palpable peripheral pulses. MEDICATIONS: Include Tylenol 650 mg p.o. q. 6 p.r.n., Ancef 2 g IV q. 8 hours, ferrous gluconate 325 mg p.o. t.i.d., folic acid 1 mg p.o. daily, multivitamin 1 tablet daily, Protonix 40 mg p.o. q.12 hours, and thiamine 100 mg daily. LABORATORY DATA: Labs from this morning WBC 8.2, hemoglobin 10.9, hematocrit 31.3, platelets 476. Sodium 138, potassium 4.5, chloride 98, bicarb 26, BUN 12, creatinine 0.9, glucose 96, calcium 9.5, ALT 10, alkaline phosphatase 71. UA negative. RANDALL negative. ASSESSMENT AND PLAN: Middle-aged male with ethyl alcohol abuse, status post intoxication and Librium therapy, iron deficiency anemia, B12 deficiency anemia status post packed red blood cell transfusion, status post esophagogastroduodenoscopy consistent with gastritis, status post treatment with Tamiflu and methicillin-sensitive staphylococcus aureus bacteremia, on long-term IV antibiotics, status post transesophageal echocardiography which was negative for any vegetation and endocarditis. The patient will be completing his antibiotics today. We will plan discharging the patient in a.m. after completion of the antibiotics. Daina Wooten MD
--- NOTE | 2017-10-22 18:43 | CP.PCM.PN ---
Subjective - Date & Time of Evaluation Date of Evaluation: 10/22/17 Time of Evaluation: 09:00 - Subjective Subjective: no new + cultures IV rx to cont Objective - Vital Signs/Intake and Output Vital Signs (last 24 hours): Temp Pulse Resp BP Pulse Ox 98.7 F 121 H 20 117/66 100 10/22/17 16:00 10/22/17 16:00 10/22/17 16:00 10/22/17 16:00 10/22/17 16:00 Intake and Output: 10/22/17 10/22/17 06:59 18:59 Intake Total 500 400 Balance 500 400 - Medications Medications: Current Medications Acetaminophen (Tylenol 325mg Tab) 650 mg PO Q6 PRN PRN Reason: Pain, Mild (1-3) Last Admin: 10/21/17 22:59 Dose: 650 mg Clotrimazole (Lotrimin 1%) 0 gm TOP BID [facility] Last Admin: 10/22/17 18:06 Dose: 1 applic Ferrous Gluconate (Fergon) 324 mg PO TID [facility] Last Admin: 10/22/17 18:00 Dose: 324 mg Folic Acid (Folic Acid) 1 mg PO DAILY [facility] Last Admin: 10/22/17 09:29 Dose: 1 mg Cefazolin Sodium/Dextrose (Ancef Iv 2 Gm Duplex) 2 gm in 50 mls @ 100 mls/hr IVPB Q8H [facility] Last Admin: 10/22/17 18:00 Dose: 100 mls/hr Ketoconazole (Nizoral) 5 gm TOP BID [facility] Last Admin: 10/22/17 18:06 Dose: 1 applic Lactic Acid (Lac-Hydrin 12% Lotion (225 G)) 1 gm EXT BID [facility] Last Admin: 10/22/17 18:05 Dose: 1 applic Multivitamins (Hexavitamin) 1 tab PO DAILY [facility] Last Admin: 10/22/17 09:28 Dose: 1 tab Pantoprazole Sodium (Protonix Ec Tab) 40 mg PO Q12H [facility] Last Admin: 10/22/17 18:00 Dose: 40 mg Thiamine HCl (Vitamin B1 Tab) 100 mg PO DAILY [facility] Last Admin: 10/22/17 09:29 Dose: 100 mg - Labs Labs: 10/22/17 07:12 10/22/17 07:12 PT 12.4 SECONDS (9.7-12.2) H 10/20/17 14:45 INR 1.1 10/20/17 14:45 APTT 25 SECONDS (21-34) 10/02/17 20:24 - Constitutional Appears: Non-toxic, Chronically Ill - Head Exam Head Exam: NORMOCEPHALIC - Eye Exam Eye Exam: PERRL - ENT Exam ENT Exam: Mucous Membranes Dry - Neck Exam Neck Exam: absent: Lymphadenopathy - Respiratory Exam Respiratory Exam: Decreased Breath Sounds - Cardiovascular Exam Cardiovascular Exam: REGULAR RHYTHM - GI/Abdominal Exam GI & Abdominal Exam: Distended, Soft Assessment and Plan (1) Alcohol abuse Status: Acute (2) Anemia Status: Acute (3) Conjunctivitis Status: Acute (4) Leukocytosis Status: Acute (5) Severe anemia Status: Acute (6) Skin disease, fungal Status: Acute (7) Alcohol withdrawal Status: Acute
--- NOTE | 2017-10-22 21:23 | CP.PCM.PN ---
Subjective - Date & Time of Evaluation Date of Evaluation: 10/22/17 Time of Evaluation: 12:05 - Subjective Subjective: No complaints. Objective - Vital Signs/Intake and Output Vital Signs (last 24 hours): Temp Pulse Resp BP Pulse Ox 98.7 F 121 H 20 117/66 100 10/22/17 16:00 10/22/17 16:00 10/22/17 16:00 10/22/17 16:00 10/22/17 16:00 Intake and Output: 10/22/17 10/23/17 18:59 06:59 Intake Total 400 Balance 400 - Medications Medications: Current Medications Acetaminophen (Tylenol 325mg Tab) 650 mg PO Q6 PRN PRN Reason: Pain, Mild (1-3) Last Admin: 10/21/17 22:59 Dose: 650 mg Clotrimazole (Lotrimin 1%) 0 gm TOP BID [facility] Last Admin: 10/22/17 18:06 Dose: 1 applic Ferrous Gluconate (Fergon) 324 mg PO TID [facility] Last Admin: 10/22/17 18:00 Dose: 324 mg Folic Acid (Folic Acid) 1 mg PO DAILY [facility] Last Admin: 10/22/17 09:29 Dose: 1 mg Cefazolin Sodium/Dextrose (Ancef Iv 2 Gm Duplex) 2 gm in 50 mls @ 100 mls/hr IVPB Q8H [facility] Last Admin: 10/22/17 18:00 Dose: 100 mls/hr Ketoconazole (Nizoral) 5 gm TOP BID [facility] Last Admin: 10/22/17 18:06 Dose: 1 applic Lactic Acid (Lac-Hydrin 12% Lotion (225 G)) 1 gm EXT BID [facility] Last Admin: 10/22/17 18:05 Dose: 1 applic Multivitamins (Hexavitamin) 1 tab PO DAILY [facility] Last Admin: 10/22/17 09:28 Dose: 1 tab Pantoprazole Sodium (Protonix Ec Tab) 40 mg PO Q12H [facility] Last Admin: 10/22/17 18:00 Dose: 40 mg Thiamine HCl (Vitamin B1 Tab) 100 mg PO DAILY [facility] Last Admin: 10/22/17 09:29 Dose: 100 mg - Labs Labs: 10/22/17 07:12 10/22/17 07:12 PT 12.4 SECONDS (9.7-12.2) H 02/28/18 14:45 INR 1.1 10/20/17 14:45 APTT 25 SECONDS (21-34) 10/02/17 20:24 - Head Exam Head Exam: ATRAUMATIC - Eye Exam Eye Exam: Normal appearance - ENT Exam ENT Exam: Mucous Membranes Dry - Respiratory Exam Respiratory Exam: NORMAL BREATHING PATTERN - Cardiovascular Exam Cardiovascular Exam: +S1, +S2 - GI/Abdominal Exam GI & Abdominal Exam: Normal Bowel Sounds Assessment and Plan (1) Anemia Assessment & Plan: iron and b12 deficiency s/p IM and IV supplementation on oral iron Status: Acute
[2017-10-22 23:22] VITALS: RESP 18; O2SAT 97
[2017-10-23] MEDS: ceFAZolin IV 2 gm in Dextrose 2 GM/50 ML BAG IVPB SCH ×2 (04:05→10:17)
[2017-10-23] MEDS: Pantoprazole 40 mg EC Tab PO SCH (06:52)
[2017-10-23 08:18] VITALS: PULSE 71; TEMP 97.9
[2017-10-23 08:22] VITALS: BP 120/72
[2017-10-23 09:03] LABS: BASO # 0.1 K/uL (0.0-0.2); BASO % 0.9 % (0.0-2.0); EOS # 0.4 K/uL (0.0-0.7); EOS % 4.8 % (0.0-4.0); HEMOGLOBIN 11.1 g/dL (12.0-18.0); LYMPH # 1.4 K/uL (1.0-4.3); LYMPH % 18.8 % (20.0-40.0); MEAN CELL VOLUME 85.4 fL (80.0-94.0); MEAN CORPUSCULAR HEMOGLOBIN 29.7 pg (27.0-31.0); MEAN CORPUSCULAR HGB CONC 34.8 g/dL (33.0-37.0); MONO # 0.7 K/uL (0.0-0.8); MONO % 8.9 % (0.0-10.0); NEUT # 4.9 K/uL (1.8-7.0); NEUT % 66.6 % (50.0-75.0); NRBC % 0.1 % (0.0-2.0); RBC 3.75 Mil/uL (4.40-5.90); RED CELL DISTRIBUTION WIDTH 15.3 % (11.5-14.5); WHITE BLOOD COUNT 7.4 K/uL (4.8-10.8)
--- NOTE | 2017-10-23 09:29 | CP.PCM.PN ---
Subjective - Date & Time of Evaluation Date of Evaluation: 10/23/17 Time of Evaluation: 09:30 - Subjective Subjective: Discharge summary dictated #[id number] Objective - Vital Signs/Intake and Output Vital Signs (last 24 hours): Temp Pulse Resp BP Pulse Ox 97.9 F 71 18 120/72 97 10/23/17 07:05 10/23/17 07:05 10/23/17 07:05 10/23/17 07:05 10/23/17 07:05 Intake and Output: 10/23/17 10/23/17 06:59 18:59 Intake Total 600 Balance 600 - Medications Medications: Current Medications Acetaminophen (Tylenol 325mg Tab) 650 mg PO Q6 PRN PRN Reason: Pain, Mild (1-3) Last Admin: 10/22/17 21:24 Dose: 650 mg Clotrimazole (Lotrimin 1%) 0 gm TOP BID [facility] Last Admin: 10/22/17 18:06 Dose: 1 applic Ferrous Gluconate (Fergon) 324 mg PO TID [facility] Last Admin: 10/22/17 18:00 Dose: 324 mg Folic Acid (Folic Acid) 1 mg PO DAILY [facility] Last Admin: 10/22/17 09:29 Dose: 1 mg Cefazolin Sodium/Dextrose (Ancef Iv 2 Gm Duplex) 2 gm in 50 mls @ 100 mls/hr IVPB Q8H [facility] Last Admin: 10/23/17 04:05 Dose: 100 mls/hr Ketoconazole (Nizoral) 5 gm TOP BID [facility] Last Admin: 10/22/17 18:06 Dose: 1 applic Lactic Acid (Lac-Hydrin 12% Lotion (225 G)) 1 gm EXT BID [facility] Last Admin: 10/22/17 18:05 Dose: 1 applic Multivitamins (Hexavitamin) 1 tab PO DAILY [facility] Last Admin: 10/22/17 09:28 Dose: 1 tab Pantoprazole Sodium (Protonix Ec Tab) 40 mg PO Q12H [facility] Last Admin: 10/23/17 06:52 Dose: 40 mg Thiamine HCl (Vitamin B1 Tab) 100 mg PO DAILY [facility] Last Admin: 10/22/17 09:29 Dose: 100 mg - Labs Labs: 10/23/17 08:51 10/22/17 07:12 PT 12.4 SECONDS (9.7-12.2) H 10/20/17 14:45 INR 1.1 10/20/17 14:45 APTT 25 SECONDS (21-34) 10/02/17 20:24
[2017-10-23] MEDS: Multiple Vitamins Tab PO SCH (10:04)
[2017-10-23] MEDS: Clotrimazole 1% Cream(30 gm) TOP SCH (10:05)
[2017-10-23] MEDS: Ammonium Lactate 12% Lotion (225 g) EXT SCH (10:06)
[2017-10-23 10:27] LABS: ALB/GLOB RATIO 0.9 (1.0-2.1); ALBUMIN 3.8 g/dL (3.5-5.0); ALT/SGPT 12 U/L (21-72); AST/SGOT 41 U/L (17-59); BLOOD UREA NITROGEN 14 mg/dL (9-20); CALCIUM 9.7 mg/dl (8.6-10.4); GFR AFRICAN-AMERICAN > 60; GFR NON-AFRICAN AMERICAN > 60
[2017-10-24] MEDS ORDERED: ceFAZolin 2 GM in Sodium Chloride 0.9% 100 ML IVPB SCH (03:00)
--- NOTE | 2017-10-24 18:47 | CARD ---
APPROVED REPORT EXAM: Transesophageal echocardiogram with color flow Doppler. INDICATION Infection : Rule out subacute bacterial endocarditis Mitral Valve E/A ratio0.0 TDI E/Lateral E'0.0E/Medial E'0.0 Reason For Test : Rule out endocarditis. PROCEDURE After obtaining informed consent, patient underwent transesophageal echo in the [facility]. Type of Sedation : Conscious Sedation Sedation was provided by anesthesiologist. Sedation was achieved with intravenously. The RANDALL was performed complications. Throughout the procedure, the blood pressure, pulse oximetry, cardiac rhythm, and rate were monitored. The patient tolerated the procedure without adverse effects. Recovery from conscious sedation was uneventful and vital signs were stable. LEFT VENTRICLE The left ventricle is normal size. Left ventricle systolic function is low normal. The Ejection Fraction is 40-45%. No left ventricle thrombus noted on this study. There is no ventricular septal defect visualized. There is no left ventricular aneurysm. RIGHT VENTRICLE The right ventricle is normal size. The right ventricular systolic function is normal. ATRIA The left atrium size is normal. The right atrium size is normal. The interatrial septum is intact with no evidence for an atrial septal defect. AORTIC VALVE The aortic valve is normal in structure. No aortic regurgitation is present. There is no aortic valvular stenosis. There is no aortic valvular vegetation. MITRAL VALVE The mitral valve is normal in structure. There is no evidence of mitral valve prolapse. There is no mitral valve stenosis. Mitral regurgitation is mild. TRICUSPID VALVE The tricuspid valve is normal in structure. There is mild tricuspid regurgitation. There is no tricuspid valve prolapse or vegetation. There is no tricuspid valve stenosis. GREAT VESSELS The aortic root is normal in size. <Conclusion> EF 40-45% No evidenec of endocarditis
--- NOTE | 2017-10-24 19:24 | DS ---
DISCHARGE DIAGNOSES: Alcohol abuse, EtOH intoxication, status post therapy with Librium; anemia, iron deficiency and B12 deficiency anemia, status post packed red blood cells transfusion; status post esophagogastroduodenoscopy consistent with gastritis; influenza antibody type is positive, status post Tamiflu therapy; methicillin-susceptible staphylococcus aureus bacteremia, status post 14 days of IV antibiotics, status post RANDALL (transesophageal echocardiogram) negative for any endocarditis or vegetation. Hyponatremia, resolved. Multiple electrolyte abnormalities, resolved. HISTORY OF PRESENT ILLNESS: Mr. Rodriguez is a 62-year-old male with past medical history of EtOH abuse who has been homeless, came into the ER, brought by the family for redness of the eyes, generalized fatigue and difficulty ambulation, body aches, dyspnea on exertion. In the ED, the patient was found to be having EtOH intoxication and low H and H, and the patient is being admitted for further management. Today the patient is feeling much better. Denies any headache or dizziness. Denies any chest pain, shortness of breath or wheezing. Denies any nausea, vomiting, abdominal pain, diarrhea, or constipation. Denies any urinary complaints. Denies any leg pains or leg cramps. Denies any other neurological symptoms. REVIEW OF SYSTEMS: All other systems reviewed and were found to be negative. PHYSICAL EXAMINATION: GENERAL: Middle-aged male, lying in bed, in no acute distress. VITAL SIGNS: Blood pressure 120/72, pulse 71, respirations 18, temperature 97.9 degrees Fahrenheit, O2 saturations 97% on room air. HEENT: Pupils equal, round, and reactive to light and accommodation. Extraocular muscles intact. No icterus. No pallor. No oral thrush. No pharyngeal congestion. NECK: Supple. No JVD. No thyromegaly. CHEST: Moving equally and bilaterally on respiration. LUNGS: Bilateral vesicular breath sounds. No wheezing. No rhonchi. CVS: S1, S2 present. Regular. ABDOMEN: Soft. Nontender. Bowel sounds are present. No guarding. No rigidity. No rebound tenderness noted. [employer]ER: Alert, awake, and oriented x3. No focal deficits noted. EXTREMITIES: No edema. Palpable peripheral pulses. LABORATORY DATA: Labs done from this morning: WBC 7.4, hemoglobin 11.1, hematocrit 32, platelets 449. Sodium 137, potassium 4.6, chloride 97, bicarbonate 26, BUN 14, creatinine 0.9, glucose 93. LFTs within normal limits. UA negative. Blood cultures from 10/06/2017 shows staph aureus. Other repeat cultures are negative. Urine culture negative. Influenza antibody titers elevated. HOSPITAL COURSE: The patient was admitted to Telemetry for anemia. The patient received 2 units of PRBC transfusion and the patient underwent endoscopy which was consistent with gastritis. The patient was started on Librium tapering doses, evaluated by Psych, completed the course of Librium, received thiamine, folic acid and multivitamin. Since the patient has temperature and complaining of generalized body aches, the patient had blood cultures done and tested for influenza. Influenza antibody titers were elevated and the patient was evaluated by ID for MSSA bacteremia. The patient was started on Tamiflu, completed the course of 5-day treatment. For MSSA, the patient received 14 days of Ancef 2 g IV q. 8 hours. Transthoracic echo was negative. The patient underwent RANDALL which was negative for any vegetation. Initially the patient was accepted to subacute facility for longtime IV antibiotics. The patient was not able to go as the facility did not accept the patient. The patient had to complete all his antibiotics in the hospital. The patient completed his course yesterday. As the patient is otherwise hemodynamically stable, cleared by Medical Director/Head Team Physician. The patient also had iron deficiency and B12 deficiency anemia. The patient was evaluated by Hematology, received IV iron therapy. The patient was also having multiple electrolyte abnormalities and persistent hyponatremia. The patient was evaluated by Renal. His electrolytes were corrected and hyponatremia resolved. The patient is otherwise medically stable to be discharged. Advised the patient to follow up with GI as outpatient for screening colonoscopy. The patient understands the need and is willing to follow up with his PMD as outpatient. CONDITION UPON DISCHARGE: The patient is alert, awake, oriented x3 and hemodynamically stable at the time of discharge. DISCHARGE INSTRUCTIONS: Follow up with PMD. Follow up with Hematology. Follow up with GI. DISCHARGE DIET: Heart-healthy diet. ACTIVITY: As tolerated DISCHARGE MEDICATIONS: Protonix 40 mg p.o. daily, thiamine 100 mg daily, multivitamin 1 tab daily, folic acid 1 mg daily, Feosol 325 mg p.o. three times a day. Advised the patient to return to the ED if any other symptoms reoccur. Daina Wooten MD
== END 2017-10-23 16:09 | disposition home or self-care (01) | DRG 584 ==
LOC: C.ER 18:23 → UNDOADMIN 22:47 → C.9E 22:47 → UNDOADMIN 10-03 00:10 → C.9E 10-03 00:10 → C.9I 10-04 12:22 → C.5S 10-04 20:09 → C.9I 10-07 07:54 → C.5S 10-07 08:17
PROVIDERS: ADMIT Internal Medicine; ATTEND Internal Medicine
PROC: 30233N1 Transfusion of Nonautologous Red Blood Cells into Peripheral Vein, Percutaneous Approach (ICD-10-PCS; 2017-10-03)
PROC: HZ52ZZZ Individual Psychotherapy for Substance Abuse Treatment, Cognitive-Behavioral (ICD-10-PCS; 2017-10-04)
PROC: HZ59ZZZ Individual Psychotherapy for Substance Abuse Treatment, Supportive (ICD-10-PCS; 2017-10-04)
PROC: 0DB98ZX Excision of Duodenum, Via Natural or Artificial Opening Endoscopic, Diagnostic (ICD-10-PCS; 2017-10-04)
PROC: 0DB68ZX Excision of Stomach, Via Natural or Artificial Opening Endoscopic, Diagnostic (ICD-10-PCS; 2017-10-04)
PROC: 02HV33Z Insertion of Infusion Device into Superior Vena Cava, Percutaneous Approach (ICD-10-PCS; 2017-10-04)
PROC: B548ZZA Ultrasonography of Superior Vena Cava, Guidance (ICD-10-PCS; 2017-10-04)
PROC: HZ2ZZZZ Detoxification Services for Substance Abuse Treatment (ICD-10-PCS; principal; 2017-10-04 13:30)
PROC: B246ZZ4 Ultrasonography of Right and Left Heart, Transesophageal (ICD-10-PCS; 2017-10-08)
DX: A41.01 Sepsis due to Methicillin susceptible Staphylococcus aureus (principal); I50.22 Chronic systolic (congestive) heart failure; D68.9 Coagulation defect, unspecified; E22.2 Syndrome of inappropriate secretion of antidiuretic hormone; E83.42 Hypomagnesemia; D51.9 Vitamin B12 deficiency anemia, unspecified; F10.239 Alcohol dependence with withdrawal, unspecified; E87.6 Hypokalemia; R32 Unspecified urinary incontinence; E86.9 Volume depletion, unspecified; D50.9 Iron deficiency anemia, unspecified; B35.3 Tinea pedis; F31.9 Bipolar disorder, unspecified; K44.9 Diaphragmatic hernia without obstruction or gangrene; K29.70 Gastritis, unspecified, without bleeding; B85.1 Pediculosis due to Pediculus humanus corporis; H10.9 Unspecified conjunctivitis; J11.1 Influenza due to unidentified influenza virus with other respiratory manifestations; K76.0 Fatty (change of) liver, not elsewhere classified; Z59.0 Homelessness; Z79.2 Long term (current) use of antibiotics; Z80.0 Family history of malignant neoplasm of digestive organs; Z87.01 Personal history of pneumonia (recurrent); Z87.891 Personal history of nicotine dependence; L08.9 Local infection of the skin and subcutaneous tissue, unspecified; Y90.6 Blood alcohol level of 120-199 mg/100 ml

== ENCOUNTER 2018-09-25 01:06 | Emergency (ER) | payer MEDICAID ==
--- NOTE | 2018-09-25 02:55 | C.PDOC ---
History Of Present Illness 63 year old male is brought to the ED by EMS for public intoxication. Patient admits to drinking alcohol today, requests for a place to spend the night. Patient denies SI/HI, hallucinations, injury, fall, trauma. Time Seen by Provider: 09/25/18 01:41 Chief Complaint (Nursing): Substance Abuse History Per: Patient, EMS History/Exam Limitations: intoxication Onset/Duration Of Symptoms: Hrs Current Symptoms Are (Timing): Still Present Suicide/Self Injury Attempted (Context): None Modifying Factor(s): Alcohol Associated Symptoms: denies: Depression, Suicidal Thoughts, Suicidal Plan Recent travel outside of the [place]: No Additional History Per: Patient, EMS Past Medical History Reviewed: Historical Data, Nursing Documentation, Vital Signs Vital Signs: Last Vital Signs Temp 98.4 F 09/25/18 01:22 Pulse 95 H 09/25/18 01:22 Resp 16 09/25/18 01:22 BP 117/75 09/25/18 01:22 Pulse Ox 97 09/25/18 01:22 - Medical History PMH: Anemia, Bipolar Disorder, Pneumonia Surgical History: No Surg Hx - [facility] Procedures DETOXIFICATION SERVICES FOR SUBSTANCE ABUSE TREATMENT (10/02/17) EXCISION OF DUODENUM, ENDO, DIAGN (10/02/17) EXCISION OF STOMACH, ENDO, DIAGN (10/02/17) INDIV PSYCHOTHERAPY FOR SUBSTANCE ABUSE TREATMENT, SUPPORT (10/02/17) INDIV PSYCHOTHERAPY FOR SUBSTANCE ABUSE, COGNITIV BEHAVIORAL (10/02/17) INSERTION OF INFUSION DEV INTO SUP VENA CAVA, PERC APPROACH (10/02/17) TRANSFUSE NONAUT RED BLOOD CELLS IN PERIPH VEIN, PERC (10/02/17) ULTRASONOGRAPHY OF RIGHT AND LEFT HEART, TRANSESOPHAGEAL (10/02/17) ULTRASONOGRAPHY OF SUPERIOR VENA CAVA, GUIDANCE (10/02/17) Family History: States: Unknown Family Hx - Social History Hx Tobacco Use: No Hx Alcohol Use: Yes (3 bottles of vodka daily) Hx Substance Use: No - Immunization History Hx Influenza Vaccination: No Review Of Systems Constitutional: Negative for: Fever, Chills Cardiovascular: Negative for: Chest Pain Respiratory: Negative for: Shortness of Breath Gastrointestinal: Negative for: Nausea, Vomiting, Abdominal Pain Skin: Negative for: Rash Neurological: Negative for: Weakness, Numbness Psych: Negative for: Depression, Suicidal ideation Physical Exam - Physical Exam Appears: Non-toxic, No Acute Distress Skin: Normal Color, Warm, Dry Head: Atraumatic, Normacephalic Eye(s): bilateral: Normal Inspection Neck: Normal ROM, Supple Chest: Symmetrical Cardiovascular: Rhythm Regular Respiratory: Normal Breath Sounds, No Rales, No Rhonchi, No Wheezing Gastrointestinal/Abdominal: Soft, No Tenderness, No Guarding, No Rebound Extremity: Normal ROM, No Tenderness, No Swelling Neurological/Psych: Oriented x3, Normal Speech, Normal Cognition Gait: Steady ED Course And Treatment O2 Sat by Pulse Oximetry: 97 (On RA) Pulse Ox Interpretation: Normal Progress Note: Patient is seen ambulating in the ED with steady gait, AAO x3 and clinically sober stable for D/C. Reassessment Condition: Improved Disposition Counseled Patient/Family Regarding: Diagnosis, Need For Followup - Disposition Referrals: [facility] [Outside] Disposition: HOME/ ROUTINE Disposition Time: 05:31 Condition: STABLE Instructions: Drug Abuse and Drug Addiction (DC) Forms: [employer] (Italian) - Clinical Impression Clinical Impression: Alcohol abuse - PA / C IRON WORKER / Resident Statement MD/DO has reviewed & agrees with the documentation as recorded. - Scribe Statement The provider has reviewed the documentation as recorded by the Scribe Bishop Salinas All medical record entries made by the Scribe were at my direction and personally dictated by me. I have reviewed the chart and agree that the record accurately reflects my personal performance of the history, physical exam, medical decision making, and the department course for this patient. I have also personally directed, reviewed, and agree with the discharge instructions and disposition.
[2018-09-25 06:08] VITALS: BP 110/72; PULSE 90; RESP 20; TEMP 98; O2SAT 99
== END 2018-09-25 06:07 | disposition home or self-care (01) ==
LOC: C.ER 01:06
DX: F10.10 Alcohol abuse, uncomplicated (principal); Y90.9 Presence of alcohol in blood, level not specified

== ENCOUNTER 2018-10-04 18:13 | Emergency (ER) | payer MEDICAID ==
--- NOTE | 2018-10-04 19:07 | C.PDOC ---
History Of Present Illness 63 year old male with history of alcohol abuse and homelessness presents to ED via EMS with complaint that he feels bugs all over him and in his mouth. Patient states that he drinks 3 bottles of vodka a day and drank today as well. States that he has gone to this hospital for years and that "they always deny him and tell him he doesn't have bugs." He was just at the [facility] for the same reason. He also states that he has had swelling in his lower extremities for many years. He denies a fall, but has an abrasion to the back of his head and claims "the bugs did it to him." Patient denies any other drug use, suicidal ideation, and homicidal ideation. <Radha Whitehead - Last Filed: 10/06/18 15:51> <Raffy Mills - Last Filed: 10/05/18 05:20> History Per: Patient History/Exam Limitations: intoxication Onset/Duration Of Symptoms: Hrs Current Symptoms Are (Timing): Still Present Modifying Factor(s): Alcohol Associated Symptoms: denies: Suicidal Thoughts, Suicidal Plan Additional History Per: Patient, EMS <Radha Whitehead - Last Filed: 10/06/18 15:51> Time Seen by Provider: 10/04/18 18:23 Chief Complaint (Nursing): Substance Abuse Past Medical History Vital Signs: Last Vital Signs Temp 98 F 10/05/18 02:27 Pulse 110 H 10/05/18 02:27 Resp 20 10/05/18 02:27 BP 124/77 10/05/18 02:27 Pulse Ox 96 10/05/18 02:27 - [facility] Procedures DETOXIFICATION SERVICES FOR SUBSTANCE ABUSE TREATMENT (10/02/17) EXCISION OF DUODENUM, ENDO, DIAGN (10/02/17) EXCISION OF STOMACH, ENDO, DIAGN (10/02/17) INDIV PSYCHOTHERAPY FOR SUBSTANCE ABUSE TREATMENT, SUPPORT (10/02/17) INDIV PSYCHOTHERAPY FOR SUBSTANCE ABUSE, COGNITIV BEHAVIORAL (10/02/17) INSERTION OF INFUSION DEV INTO SUP VENA CAVA, PERC APPROACH (10/02/17) TRANSFUSE NONAUT RED BLOOD CELLS IN PERIPH VEIN, PERC (10/02/17) ULTRASONOGRAPHY OF RIGHT AND LEFT HEART, TRANSESOPHAGEAL (10/02/17) ULTRASONOGRAPHY OF SUPERIOR VENA CAVA, GUIDANCE (10/02/17) <Raffy Mills - Last Filed: 10/05/18 05:20> Reviewed: Historical Data, Nursing Documentation, Vital Signs Vital Signs: Last Vital Signs Temp 97.6 F 10/04/18 18:36 Pulse 93 H 10/04/18 18:36 Resp 20 10/04/18 18:36 BP 157/85 H 10/04/18 18:36 Pulse Ox 98 10/04/18 18:36 - Medical History PMH: Anemia, Bipolar Disorder, Pneumonia Surgical History: No Surg Hx - [facility] Procedures DETOXIFICATION SERVICES FOR SUBSTANCE ABUSE TREATMENT (10/02/17) EXCISION OF DUODENUM, ENDO, DIAGN (10/02/17) EXCISION OF STOMACH, ENDO, DIAGN (10/02/17) INDIV PSYCHOTHERAPY FOR SUBSTANCE ABUSE TREATMENT, SUPPORT (10/02/17) INDIV PSYCHOTHERAPY FOR SUBSTANCE ABUSE, COGNITIV BEHAVIORAL (10/02/17) INSERTION OF INFUSION DEV INTO SUP VENA CAVA, PERC APPROACH (10/02/17) TRANSFUSE NONAUT RED BLOOD CELLS IN PERIPH VEIN, PERC (10/02/17) ULTRASONOGRAPHY OF RIGHT AND LEFT HEART, TRANSESOPHAGEAL (10/02/17) ULTRASONOGRAPHY OF SUPERIOR VENA CAVA, GUIDANCE (10/02/17) Family History: States: Unknown Family Hx - Social History Hx Tobacco Use: No Hx Alcohol Use: Yes (3 bottles of vodka daily) Hx Substance Use: No - Immunization History Hx Influenza Vaccination: No <Radha Whitehead - Last Filed: 10/06/18 15:51> Review Of Systems Constitutional: Negative for: Fever, Chills, Weakness Cardiovascular: Negative for: Chest Pain, Palpitations Respiratory: Negative for: Cough, Shortness of Breath Gastrointestinal: Negative for: Nausea, Vomiting, Abdominal Pain Musculoskeletal: Positive for: Other (swelling in lower extremities) Neurological: Positive for: Altered Mental Status. Negative for: Weakness, Numbness, Dizziness Psych: Negative for: Suicidal ideation <Radha Whitehead - Last Filed: 10/06/18 15:51> Physical Exam - Physical Exam Appears: No Acute Distress, Other (Alcohol on breath) Skin: Normal Color, Warm, Dry, No Rash, No Other (visible insects) Head: Abrasion (superficial abrasion to the occipital area of the head) Eye(s): bilateral: PERRL, EOMI Oral Mucosa: Dry Lips: Normal Appearing Neck: Normal ROM, Trachea Midline Chest: Symmetrical, No Tenderness Cardiovascular: Rhythm Regular, No Murmur Gastrointestinal/Abdominal: Soft, No Tenderness Back: Normal Inspection, No Decreased ROM Extremity: Swelling (bilateral lower extremity trace edema ) Neurological/Psych: Normal Motor, Normal Sensation, Dysarthria <Radha Whitehead - Last Filed: 10/06/18 15:51> ED Course And Treatment Pulse Ox Interpretation: Normal Reevaluation Time: 05:20 Reassessment Condition: Improved <Raffy Mills - Last Filed: 10/05/18 05:20> O2 Sat by Pulse Oximetry: 98 <Radha Whitehead - Last Filed: 10/06/18 15:51> Medical Decision Making Medical Decision Making: Impression: alcohol intoxication and homelessness Plan: Head CT ordered for patient. Alcohol serum and Glucose POC ordered for patient. 1am Endorsed to Dr Mills. Pending clinical sobriety. <Radha Whitehead - Last Filed: 10/06/18 15:51> Disposition Counseled Patient/Family Regarding: Studies Performed, Diagnosis, Need For Fol lowup - Disposition Disposition Time: 19:00 <Raffy Mills - Last Filed: 10/05/18 05:20> - Disposition Disposition Time: 01:00 <Radha Whitehead - Last Filed: 10/06/18 15:51> - Disposition Condition: FAIR Instructions: Alcohol Abuse and Alcoholism (DC) Forms: [employer] (Nepali) - Clinical Impression Clinical Impression: Alcohol abuse, Alcohol intoxication - Scribe Statement The provider has reviewed the documentation as recorded by the Scribe (Aleida Garcia) All medical record entries made by the Scribe were at my direction and personally dictated by me. I have reviewed the chart and agree that the record accurately reflects my personal performance of the history, physical exam, medical decision making, and the department course for this patient. I have also personally directed, reviewed, and agree with the discharge instructions and disposition. <Radha Whitehead - Last Filed: 10/06/18 15:51>
[2018-10-05 06:33] VITALS: BP 132/78; PULSE 74; RESP 15; TEMP 98.2
--- NOTE | 2018-10-05 07:22 | CT ---
Date of service: 10/04/2018 PROCEDURE: CT HEAD WITHOUT CONTRAST. HISTORY: Headache. Evaluate for hemorrhage. Substance abuse. COMPARISON: None available. TECHNIQUE: Axial computed tomography images were obtained through the head/brain without intravenous contrast. Radiation dose: Total exam DLP = 944.96 mGy-cm. This CT exam was performed using one or more of the following dose reduction techniques: Automated exposure control, adjustment of the mA and/or kV according to patient size, and/or use of iterative reconstruction technique. FINDINGS: HEMORRHAGE: No intracranial hemorrhage. BRAIN: No mass effect or edema. Scattered focal lucencies in the subcortical and periventricular white matter suggestive for chronic microvascular ischemic change. Punctate bilateral basal ganglia calcifications. Mild diffuse generalized parenchymal atrophy. Cerebellar atrophy. Confluent low attenuation seen within the bilateral basal ganglia and external capsules; left greater than right suggestive for lacunar infarcts. VENTRICLES: Unremarkable. No hydrocephalus. CALVARIUM: Unremarkable. PARANASAL SINUSES: Dense mucosal opacification and thickening of the bilateral maxillary sinuses. Moderate mucosal thickening of the ethmoid air cells. Mild concavity at the level of the anterior left nasal bone on series 2, image 5; nonspecific. Clinical correlation for possible nasal bone injury. MASTOID AIR CELLS: Unremarkable as visualized. No inflammatory changes. OTHER FINDINGS: Soft tissue swelling overlying the left frontal cranium and periorbital region. Intracranial arterial calcifications. Nonspecific prominence of the pituitary gland in the sella turcica. Clinical correlation. Correlation with MRI may be helpful if clinically indicated. IMPRESSION: No acute intracranial abnormality. Chronic microvascular ischemic changes. Low-attenuation foci in the bilateral basal ganglia/external capsules suggestive for lacunar infarcts; left greater than right. Cerebellar atrophy. Dense sinus mucosal disease as above. Nonspecific prominence of the pituitary gland in the sella turcica. Clinical correlation. Correlation with MRI may be helpful if clinically indicated. Mild concavity at the level of the anterior left nasal bone on series 2, image 5; nonspecific. Clinical correlation for possible nasal bone injury. Additional findings as above. If symptoms persists, consider correlation with MRI. A preliminary report was generated at 7:25 p.m. on 10/04/[address] Matthew Doll from [facility]. This case was placed in the PA review folder.
[2018-10-06 15:51] VITALS: O2SAT 98
== END 2018-10-05 06:31 | disposition home or self-care (01) ==
LOC: C.ER 18:13
DX: F10.129 Alcohol abuse with intoxication, unspecified (principal); Z59.0 Homelessness

== ENCOUNTER 2018-11-08 23:27 | Emergency (ER) | payer MEDICAID ==
[2018-11-08 23:27] VITALS: BMI 25.0
--- NOTE | 2018-11-08 23:48 | C.PDOC ---
History Of Present Illness 63 year old male is brought to the ED by EMS for alcohol intoxication. Patient was picked up by EMS intoxicated and admits to drinking alcohol tonight. Patient denies SI/HI, hallucinations, injury, fall, trauma. Time Seen by Provider: 11/08/18 23:48 Chief Complaint (Nursing): Substance Abuse History Per: Patient, EMS History/Exam Limitations: intoxication Onset/Duration Of Symptoms: Hrs Current Symptoms Are (Timing): Still Present Suicide/Self Injury Attempted (Context): None Modifying Factor(s): Alcohol Associated Symptoms: denies: Depression, Suicidal Thoughts, Suicidal Plan Recent travel outside of the [place]: No Additional History Per: Patient Past Medical History Reviewed: Historical Data, Nursing Documentation, Vital Signs Vital Signs: Last Vital Signs Temp 97.4 F L 11/08/18 23:34 Pulse 92 H 11/08/18 23:34 Resp 16 11/08/18 23:34 BP 134/78 11/08/18 23:34 Pulse Ox 97 11/08/18 23:34 - Medical History PMH: Anemia, Bipolar Disorder, Pneumonia Surgical History: No Surg Hx - [facility] Procedures DETOXIFICATION SERVICES FOR SUBSTANCE ABUSE TREATMENT (10/02/17) EXCISION OF DUODENUM, ENDO, DIAGN (10/02/17) EXCISION OF STOMACH, ENDO, DIAGN (10/02/17) INDIV PSYCHOTHERAPY FOR SUBSTANCE ABUSE TREATMENT, SUPPORT (10/02/17) INDIV PSYCHOTHERAPY FOR SUBSTANCE ABUSE, COGNITIV BEHAVIORAL (10/02/17) INSERTION OF INFUSION DEV INTO SUP VENA CAVA, PERC APPROACH (10/02/17) TRANSFUSE NONAUT RED BLOOD CELLS IN PERIPH VEIN, PERC (10/02/17) ULTRASONOGRAPHY OF RIGHT AND LEFT HEART, TRANSESOPHAGEAL (10/02/17) ULTRASONOGRAPHY OF SUPERIOR VENA CAVA, GUIDANCE (10/02/17) Family History: States: Unknown Family Hx - Social History Hx Tobacco Use: No Hx Alcohol Use: Yes (3 bottles of vodka daily) Hx Substance Use: No - Immunization History Hx Influenza Vaccination: No Review Of Systems Constitutional: Negative for: Fever, Chills Cardiovascular: Negative for: Chest Pain Respiratory: Negative for: Shortness of Breath Gastrointestinal: Negative for: Nausea, Vomiting, Abdominal Pain Skin: Negative for: Rash Psych: Negative for: Depression, Suicidal ideation Physical Exam - Physical Exam Appears: Non-toxic, No Acute Distress Skin: Warm, Dry Head: Normacephalic Eye(s): bilateral: Normal Inspection Neck: Supple Chest: Symmetrical Cardiovascular: Rhythm Regular Respiratory: No Rales, No Rhonchi, No Wheezing Gastrointestinal/Abdominal: Soft, No Tenderness Extremity: Bilateral: Atraumatic, Normal Color And Temperature, Normal ROM Neurological/Psych: Oriented x3, Normal Speech, Normal Cognition Gait: Steady ED Course And Treatment O2 Sat by Pulse Oximetry: 97 (On RA) Pulse Ox Interpretation: Normal Reevaluation Time: 05:36 Reassessment Condition: Improved Disposition Counseled Patient/Family Regarding: Studies Performed, Diagnosis, Need For Followup - Disposition Referrals: [facility] [Outside] Disposition: HOME/ ROUTINE Disposition Time: 23:48 Condition: FAIR Instructions: Alcohol Abuse and Alcoholism (DC) Forms: [facility] (Belarusian) - Clinical Impression Clinical Impression: Alcohol abuse, Alcohol intoxication - Scribe Statement The provider has reviewed the documentation as recorded by the Scribe Bishop Salinas All medical record entries made by the Scribe were at my direction and personally dictated by me. I have reviewed the chart and agree that the record accurately reflects my personal performance of the history, physical exam, m edical decision making, and the department course for this patient. I have also personally directed, reviewed, and agree with the discharge instructions and disposition.
[2018-11-09 02:09] VITALS: RESP 20
[2018-11-09 06:13] VITALS: BP 138/77; PULSE 93; TEMP 98.1; O2SAT 96
== END 2018-11-09 06:14 | disposition home or self-care (01) ==
LOC: C.ER 23:27
DX: F10.129 Alcohol abuse with intoxication, unspecified (principal); Y90.9 Presence of alcohol in blood, level not specified